=== PATIENT | male | born 1960 | race Caucasian/White ===

== ENCOUNTER 2018-07-12 17:37 | Emergency (ER) | payer MEDICAID, SELFPAY ==
[2018-07-12] VITALS (23 sets, daily range): BP systolic 63–110; BP diastolic 45–80; PULSE 0–93; RESP 11–25; TEMP 36.5; O2SAT 91–100
--- NOTE | 2018-07-12 17:44 | DI.RAD_ITS ---
SYMPTOM/DIAGNOSIS: CHEST PAIN PORTABLE AP CHEST: 1800 hours 07/12 There is a suboptimal inspiration. There is some apparent mild increase in pulmonary interstitial markings particularly in the lower lung schaeffer. The findings are nonspecific and could represent mild CHF or infectious process. Cardiac size is at the upper limits of normal. No gross pleural effusion on this frontal film. CONCLUSION: Mild bibasilar interstitial infiltrates which are nonspecific. Appropriate follow up studies requested.
[2018-07-12] MEDS: Aspirin 81 MG CHEW 324 MG CH (17:50)
--- NOTE | 2018-07-12 17:50 | W.ED.GENAD ---
Discharge Plan Discharge Details Chief Complaint: Chest Pain Clinical Impression: ST elevation (STEMI) myocardial infarction Reason For Visit: chest pain Primary Care Provider: Michael Trevizo ED Provider: Ortiz Pierce Disposition Patient Disposition: [facility] Condition: Critical Home Meds and New Rx's Prescriptions: No Action cyanocobalamin (vitamin B-12) 1,000 MCG tablet 1,000 mcg PO DAILY RF: 0 nitroglycerin 0.4 MG tablet, sublingual 0.4 mg Buccal ONCE RF: 0 nicotine 1 EACH patch 24 hour 14 mg Transdermal DAILY Qty: 14 RF: 0 bisoprolol fumarate 5 MG tablet 2.5 mg PO DAILY Qty: 30 RF: 11 nicotine 1 EACH patch 24 hour 21 mg Transdermal DAILY Qty: 30 RF: 0 nicotine 1 EACH patch 24 hour 7 mg Transdermal DAILY Qty: 14 RF: 0 clopidogrel [Plavix] 75 MG tablet 75 mg PO DAILY Qty: 90 RF: 4 aspirin 81 MG tablet,chewable 81 mg PO DAILY Qty: 90 RF: 4 rosuvastatin [Crestor] 40 MG tablet 40 mg PO DAILY Qty: 90 RF: 4 Medical Decision Making MDM Narrative Medical decision making narrative: 57 yo male with hx of CAD with multiple stents per pt unsure of how many, smoker, who doesn't take aspirin because he forgets frequently per pt, who comes in with chest pressure. He states it has been present for 2 days but 4 hours ago it acutely worsened and had nausea so came here, and STEmi confirmed on EKG. I gave him asa, started heparin and spoke with cardiology at [facility] and did not give lytics immediately because he has had pain with 2 days. I spoke with cardiology at [facility] and they accepted in transfer and [facility] unfortunately is not flying due to weather. CArdiology recommended if he has no other contraindications that he should have lytics since his acute worsening pain started 4 hours ago and no q waves so the STEMI likely started within 12 hours. After explaining risks and benefits and pt noting no contraindications on questioning he agreed to tnk and has capacity to make his own decisions. 300 of plavix also given to the patient. pt doing well, HD stable at this time awaiting transfer Pt's BP has been below 90/60 persistently despite 500cc fluid bolus. Will initiate levophed infusion. He is stating his pain is all but gone now and mental status is stable EMS is here now for transfer, BP now 100/70 on levophed infusion and remains with normal mental status Differential Diagnosis stemi, acs Imaging Data Radiologic Study: Attestation: I personally reviewed and interpreted this imaging study as follows: Imaging: X-Ray (chest xray) Radiologist's impression: vrad report viewed Lab Data Lab results reviewed: Yes I reviewed the patient's lab results. ECG Data Attestation: I personally reviewed and interpreted this ECG (s) as follows: Prior ECG tracings: available for review Interpretation: normal axis, sinus rhythm, STEMI, normal pr intervals HPI - General Adult General Mode of arrival: wheelchair. Date/Time Provider Initiated Documentation: 07/12/18 17:39. Limitations to Documentation: no limitations. Information obtained by: patient. History of Present Illness 57 year old M presents to the emergency department with the chief complaint of chest pain, described as severe, with intensity rated at 10. Quality is described as crushing, and is localized to the chest. Patient reports no radiation. Patient started experiencing this day(s) (2) and it has been other (worsening). No relieving factors improve symptom(s), No exacerbating factors reported . Patient notes nausea/vomiting. Patient did receive the following treatments prior to arrival, none Related Data Home Medications Medication Instructions Recorded Confirmed cyanocobalamin (vitamin B-12) 1,000 mcg PO DAILY 01/17/16 01/19/18 nitroglycerin 0.4 mg BUCCAL ONCE tab-cap 01/17/16 01/19/18 Allergies Allergy/AdvReac Type Severity Reaction Status Date / Time cephalexin monohydrate Allergy Severe Swelling/Ed Unverified 07/12/18 17:53 [From Keflex] aren Penicillins Allergy Severe Swelling/Ed Unverified 07/12/18 17:53 aren bee stings Allergy Severe Swelling/Ed Uncoded 07/12/18 17:53 aren General Stated Complaint: Chest Pain WILLEM: 2 Review of Systems Review of Systems All systems reviewed & are unremarkable except as noted in HPI and below Constitutional Denies chills, Denies fever(s) and Denies weakness Eyes Patient Denies loss of vision ENT Denies change in voice Cardiovascular Reports chest pain and Denies dyspnea Respiratory Denies dyspnea Gastrointestinal Denies abdominal pain and Reports nausea Genitourinary Denies dysuria Musculoskeletal Denies joint swelling Integumentary/Breasts Denies rash Neurologic Denies loss of vision and Denies weakness Psychiatric Denies depression Endocrine Denies cold intolerance and Denies heat intolerance Allergic/Immunologic Reports urticaria PFSH Social History Smoking/Tobacco Use Status: Current every day Exam Const Orientation: alert HENMT Head: normal to inspection Ears: external ears normal General nose exam: external nose normal Mouth: moist mucous membranes Eyes General: appearance normal, both eyes and all related structures Neck Neck: normal visual inspection Resp Effort & Inspection: normal respiratory effort and able to speak in complete sentences Cardio Rate: regular rate Skin General skin exam: no rashes or lesions noted Neuro General: alert and oriented x3 Extrem General: normal to inspection Psych Mental Status: mental status grossly normal Course Vital Signs Temperature 36.5 C 07/12/18 17:46 Pulse 85 07/12/18 17:46 Respiratory Rate 16 07/12/18 17:46 Blood Pressure 108/80 07/12/18 17:46 Pulse Oximetry 100 07/12/18 17:46 Temperature 36.5 C 07/12/18 17:46 Pulse 85 07/12/18 17:46 Respiratory Rate 16 07/12/18 17:46 Blood Pressure 108/80 07/12/18 17:46 Pulse Oximetry 100 07/12/18 17:46 Critical Care Time Critical Care Time: Yes Total Critical Care Time: 60 (minutes) Attestation: Time spent reviewing labs, ekg, monitoring hemodynamics and starting levophed infusion
[2018-07-12 17:54] LABS: Abs Immature Grans 0.03 k/cumm (0.0-0.09); Absolute Basophil Count 0.04 k/cumm (0.0-0.2); Absolute Lymphocyte Count 1.98 k/cumm (1.2-3.4); Absolute Monocyte Count 0.65 k/cumm (0.11-0.7); Absolute Neutrophil Count 6.95 k/cumm (1.2-6.7); Basophils % 0.4; HCT 49.6 % (40.0-50.0); HGB 16.9 g/dL (13.5-17.5); Immature Grans % 0.3; Lymphocytes % 20.3; Mean Corp. HGB Concentration 34.1 g/dL (32.0-36.0); Mean Corpuscular Hemoglobin 30.9 pg (27.0-33.0); Mean Corpuscular Volume 90.7 fL (80-95); Mean Platelet Volume 10.5 fL (8.0-11.0); Monocytes % 6.7; Neutrophils % 71.3; Platelet Count 204 x1000/uL (130-400); RBC 5.47 m/cumm (4.50-6.00); RBC Distribution Width 13.9 % (11.8-14.1); White Blood Cell Count 9.75 k/cumm (4.4-10.8)
--- NOTE | 2018-07-12 17:55 | ED.GENADUL_ITS ---
Discharge Plan Discharge Details Chief Complaint: Chest Pain Clinical Impression: ST elevation (STEMI) myocardial infarction Reason For Visit: chest pain Primary Care Provider: Michael Trevizo ED Provider: Ortiz Pierce Disposition Patient Disposition: [facility] Condition: Critical Home Meds and New Rx's Prescriptions: No Action cyanocobalamin (vitamin B-12) 1,000 MCG tablet 1,000 mcg PO DAILY RF: 0 nitroglycerin 0.4 MG tablet, sublingual 0.4 mg Buccal ONCE RF: 0 nicotine 1 EACH patch 24 hour 14 mg Transdermal DAILY Qty: 14 RF: 0 bisoprolol fumarate 5 MG tablet 2.5 mg PO DAILY Qty: 30 RF: 11 nicotine 1 EACH patch 24 hour 21 mg Transdermal DAILY Qty: 30 RF: 0 nicotine 1 EACH patch 24 hour 7 mg Transdermal DAILY Qty: 14 RF: 0 clopidogrel [Plavix] 75 MG tablet 75 mg PO DAILY Qty: 90 RF: 4 aspirin 81 MG tablet,chewable 81 mg PO DAILY Qty: 90 RF: 4 rosuvastatin [Crestor] 40 MG tablet 40 mg PO DAILY Qty: 90 RF: 4 Medical Decision Making MDM Narrative Medical decision making narrative: 57 yo male with hx of CAD with multiple stents per pt unsure of how many, smoker, who doesn't take aspirin because he forgets frequently per pt, who comes in with chest pressure. He states it has been present for 2 days but 4 hours ago it acutely worsened and had nausea so came here, and STEmi confirmed on EKG. I gave him asa, started heparin and spoke with cardiology at [facility] [place] and did not give lytics immediately because he has had pain with 2 days. I spoke with cardiology at [facility] and they accepted in transfer and [facility] unfortunately is not flying due to weather. CArdiology recommended if he has no other contraindications that he should have lytics since his acute worsening pain started 4 hours ago and no q waves so the STEMI likely started within 12 hours. After explaining risks and benefits and pt noting no contraindications on questioning he agreed to tnk and has capacity to make his own decisions. 300 of plavix also given to the patient. pt doing well, HD stable at this time awaiting transfer Pt's BP has been below 90/60 persistently despite 500cc fluid bolus. Will initiate levophed infusion. He is stating his pain is all but gone now and mental status is stable EMS is here now for transfer, BP now 100/70 on levophed infusion and remains with normal mental status Differential Diagnosis stemi, acs Imaging Data Radiologic Study: Attestation: I personally reviewed and interpreted this imaging study as follows: Imaging: X-Ray (chest xray) Radiologist's impression: vrad report viewed Lab Data Lab results reviewed: Yes I reviewed the patient's lab results. ECG Data Attestation: I personally reviewed and interpreted this ECG (s) as follows: Prior ECG tracings: available for review Interpretation: normal axis, sinus rhythm, STEMI, normal pr intervals HPI - General Adult General Mode of arrival: wheelchair . Date/Time Provider Initiated Documentation: 07/12/18 17:39 . Limitations to Documentation: no limitations . Information obtained by: patient . History of Present Illness 57 year old M presents to the emergency department with the chief complaint of chest pain, described as severe, with intensity rated at 10. Quality is described as crushing, and is localized to the chest. Patient reports no radiation. Patient started experiencing this day(s) (2) and it has been other (worsening). No relieving factors improve symptom(s), No exacerbating factors reported . Patient notes nausea/vomiting. Patient did receive the following treatments prior to arrival, none Related Data Home Medications Medication Instructions Recorded Confirmed cyanocobalamin (vitamin B-12) 1,000 mcg PO DAILY 01/17/16 01/19/18 nitroglycerin 0.4 mg BUCCAL ONCE tab-cap 01/17/16 01/19/18 Allergies Allergy/AdvReac Type Severity Reaction Status Date / Time cephalexin monohydrate Allergy Severe Swelling/Ed Unverified 07/12/18 17:53 [From Keflex] aren Penicillins Allergy Severe Swelling/Ed Unverified 07/12/18 17:53 aren bee stings Allergy Severe Swelling/Ed Uncoded 07/12/18 17:53 aren General Stated Complaint: Chest Pain WILLEM: 2 Review of Systems Review of Systems All systems reviewed & are unremarkable except as noted in HPI and below Constitutional Denies chills, Denies fever(s) and Denies weakness Eyes Patient Denies loss of vision ENT Denies change in voice Cardiovascular Reports chest pain and Denies dyspnea Respiratory Denies dyspnea Gastrointestinal Denies abdominal pain and Reports nausea Genitourinary Denies dysuria Musculoskeletal Denies joint swelling Integumentary/Breasts Denies rash Neurologic Denies loss of vision and Denies weakness Psychiatric Denies depression Endocrine Denies cold intolerance and Denies heat intolerance Allergic/Immunologic Reports urticaria PFSH Social History Smoking/Tobacco Use Status: Current every day Exam Const Orientation: alert HENMT Head: normal to inspection Ears: external ears normal General nose exam: external nose normal Mouth: moist mucous membranes Eyes General: appearance normal, both eyes and all related structures Neck Neck: normal visual inspection Resp Effort & Inspection: normal respiratory effort and able to speak in complete sentences Cardio Rate: regular rate Skin General skin exam: no rashes or lesions noted Neuro General: alert and oriented x3 Extrem General: normal to inspection Psych Mental Status: mental status grossly normal Course Vital Signs Temperature 36.5 C 07/12/18 17:46 Pulse 85 07/12/18 17:46 Respiratory Rate 16 07/12/18 17:46 Blood Pressure 108/80 07/12/18 17:46 Pulse Oximetry 100 07/12/18 17:46 Temperature 36.5 C 07/12/18 17:46 Pulse 85 07/12/18 17:46 Respiratory Rate 16 07/12/18 17:46 Blood Pressure 108/80 07/12/18 17:46 Pulse Oximetry 100 07/12/18 17:46 Critical Care Time Critical Care Time: Yes Total Critical Care Time: 60 (minutes) Attestation: Time spent reviewing labs, ekg, monitoring hemodynamics and starting levophed infusion
[2018-07-12] MEDS: Tenecteplase 50 MG KIT IVP (18:02)
[2018-07-12] MEDS: Clopidogrel 300 MG TAB PO (18:04)
[2018-07-12] MEDS: fentaNYL 100 MCG/2 ML VIAL IVP (18:12)
[2018-07-12 18:21] LABS: Prothrombin Time 10.1 sec (9.3-10.8)
[2018-07-12] MEDS: Normal Saline 1,000 ML 1000 ML IV (18:26)
[2018-07-12 18:29] LABS: ALT 43 U/L (12-78); AST 30 U/L (15-37); Albumin 3.9 g/dL (3.4-5.0); Alkaline Phosphatase 139 U/L (46-116); Anion Gap 8.6 mmol/L (3-11); BUN 15 mg/dL (7-18); Bilirubin, Total 0.5 mg/dL (0.2-1.0); CO2 26.4 mmol/L (21.0-32.0); CREATININE 0.98 mg/dL (0.70-1.30); Calcium 8.6 mg/dL (8.5-10.1); Chloride 100 mmol/L (98-107); Glucose 109 mg/dL (70-100); NT-proBNP 12 pg/mL; Potassium 3.7 mmol/L (3.5-5.1); Sodium 135 mmol/L (136-145); Troponin I 0.04 ng/mL (0.00-0.06)
--- NOTE | 2018-07-12 18:40 | DI.VRAD_ITS ---
EXAM: XR Chest, 1 View EXAM DATE/TIME: 07/12/2018 5:45 PM CLINICAL HISTORY: 57 years old, male; Signs and symptoms; Other: Chest pain TECHNIQUE: XR of the chest, 1 view. COMPARISON: CR - CHEST 2 VIEWS PA,LAT 04/21/2018 11:52 AM FINDINGS: Lungs: Azygous lobe in the right lung which is a normal variant. Mild peribronchial thickening and/or mild perihilar linear markings consistent with bronchitis and/or viral pneumonitis and/or reactive airway disease and/or atypical pulmonary interstitial edema. Pleural space: Unremarkable. No pleural effusion. No pneumothorax. Heart/Mediastinum: Unremarkable. No cardiomegaly. Bones/joints: Unremarkable for patient's age. Other findings: There are postoperative changes over the gastroesophageal junction. IMPRESSION: Mild peribronchial thickening and/or mild perihilar linear markings consistent with bronchitis and/or viral pneumonitis and/or reactive airway disease and/or atypical pulmonary interstitial edema. Dictated and Authenticated by: Ortiz Leyva MD. Ordering:ALEXANDR RAMOS MD
== END 2018-07-12 18:58 | disposition short-term general hospital (02) ==
PROVIDERS: Emergency Provider Emergency Medicine; PCP General Practice
DX: I21.3 ST elevation (STEMI) myocardial infarction of unspecified site (principal); I25.10 Atherosclerotic heart disease of native coronary artery without angina pectoris; Z95.2 Presence of prosthetic heart valve
CPT/HCPCS: 36415; 80053; 93005; 96361; 96365; 96368; 96374; 96375; 96376; 99285; 99291; 71045; 83735; 83880; 84484; 85025; 85610; 85730; 93010; J3010; J3101

== ENCOUNTER 2019-04-27 12:39 | Emergency (ER) | payer MEDICAID, SELFPAY ==
[2019-04-27 12:41] VITALS: BP 145/93; PULSE 81; RESP 20; TEMP 36.6; O2SAT 96
--- NOTE | 2019-04-27 13:12 | DI.RAD_ITS ---
SYMPTOMS/DIAGNOSIS: POSTERIOR RIB PAIN, BACK PAIN S/P FALL RIGHT HIP AND PELVIS: There is no evidence of a fracture or dislocation. PA AND LATERAL CHEST: The heart is normal in size. The lungs are clear. The mediastinal structures and pleura appear intact. SUMMARY: Normal chest. No evidence of acute cardiopulmonary disease. RIGHT RIBS: No rib fractures identified. T-SPINE: The vertebral bodies appear intact. Mild disc space narrowing is noted at multiple levels and there are multiple degenerative bony changes. As visualized, the posterior elements appear intact. The paravertebral soft tissues are well maintained. SUMMARY: No evidence of a fracture or subluxation.
[2019-04-27] MEDS: Lidocaine 5% Patch 1 PATCH TP (13:17)
[2019-04-27] MEDS: Acetaminophen 325 MG TAB 650 MG PO (13:17)
--- NOTE | 2019-04-27 14:49 | ED.GENADUL_ITS ---
Discharge Plan Disposition Patient Disposition: HOME Condition: Stable Discharge Details Chief Complaint: Nk/Back Pain Clinical Impression: Strain of thoracic back region Primary Care Provider: Michael Trevizo ED Provider: Brandyn Moura Home Meds and New Rx's Prescriptions: New lidocaine 5 % adhesive patch,medicated 1 patch TP DAILY PRN (Reason: pain) Qty: 15 RF: 0 hydrocodone-acetaminophen 5-325 mg tablet 1 tab PO Q6H PRN (Reason: pain) Qty: 6 RF: 0 Continued cyanocobalamin (vitamin B-12) 1,000 MCG tablet 1,000 mcg PO DAILY RF: 0 nitroglycerin 0.4 MG tablet, sublingual 0.4 mg Buccal ONCE RF: 0 nicotine 1 EACH patch 24 hour 14 mg Transdermal DAILY Qty: 14 RF: 0 bisoprolol fumarate 5 MG tablet 2.5 mg PO DAILY Qty: 30 RF: 11 nicotine 1 EACH patch 24 hour 7 mg Transdermal DAILY Qty: 14 RF: 0 clopidogrel [Plavix] 75 MG tablet 75 mg PO DAILY Qty: 90 RF: 4 aspirin 81 MG tablet,chewable 81 mg PO DAILY Qty: 90 RF: 4 rosuvastatin [Crestor] 40 MG tablet 40 mg PO DAILY Qty: 90 RF: 4 nicotine 21 mg/24 hr patch 24 hour 21 mg Transdermal DAILY Qty: 30 RF: 0 omeprazole 20 mg Capsule,Delayed Release(Dr/Ec) 20 mg PO DAILY RF: 0 Discharge Instructions Instructions: Muscle Strain (ED), Back Pain (ED) Additional Instructions: Take medication as prescribed and slowly advance activity as tolerated dis comfort keep your appointment as previously scheduled primary care and feel free to return to the emergency department for any new or significant worsening of symptoms. Referrals: Michael Trevizo MD [Primary Care Provider] - (Keep your appointment with primary care as previously scheduled) Discharge Data Discharge Date/Time-TO BE ENTERED AT DEPARTURE: 04/27/19 14:59 Medical Decision Making Right-sided back pain after near fall catching himself and a jolting type stop 3 days ago. Patient has tenderness to the thoracic spine and right posterior ribs along with paraspinal tenderness. Patient also has some right hip tenderness but full range of motion. Plan to do radiological imaging to rule out acute fracture. Patient does state history of previous injury with back surgery and maury placement due to chronic back pain. Pending results patient given Tylenol and lidocaine patch. Review of imaging and radiologist interpretation shows no acute findings noted. Patient reassessed and states improvement after lidocaine patch and Tylenol. Patient is very reasonable and reliable and states that previously due to significant amount of back pain he is needed hydrocodone and states he only takes on limited basis. Review of drug database shows no worrisome findings so patient given limited prescription of [place] and lidocaine patches. Patient states he already has a follow-up appointment scheduled with primary care on Thursday which I feel is reasonable. Return precautions discussed. After discussion of diagnosis and plan of care patient has no further needs, questions, or concerns and states clear understanding to return to the emergency department for any worsening symptoms. HPI General Mode of arrival: ambulatory . Date/Time Provider Initiated Documentation: 04/27/19 12:39 . Limitations to Documentation: no limitations . Information obtained by: patient . History of Present Illness 58 year old M presents to the emergency department with the chief complaint of back pain, described as moderate, with intensity rated at 10. Quality is described as aching and sharp, and is localized to the back and right. Patient started experiencing this day(s) (3) and it has been constant. No relieving factors improve symptom(s), Movement worsens symptoms . Patient notes no other symptoms.. Patient did receive the following treatments prior to arrival, NSAID Related Data Home Medications Medication Instructions Recorded Confirmed cyanocobalamin (vitamin B-12) 1,000 mcg PO DAILY 01/17/16 04/27/19 nitroglycerin 0.4 mg BUCCAL ONCE tab-cap 01/17/16 04/27/19 bisoprolol fumarate 2.5 mg PO DAILY #30 tab-cap 02/03/18 04/27/19 nicotine 7 mg TRANSDERMAL DAILY #14 patch 02/03/18 04/27/19 nicotine 14 mg TRANSDERMAL DAILY #14 patch 02/03/18 04/27/19 aspirin 81 mg PO DAILY #90 tab-cap 02/15/18 04/27/19 clopidogrel [Plavix] 75 mg PO DAILY #90 tab-cap 02/15/18 04/27/19 rosuvastatin [Crestor] 40 mg PO DAILY #90 tab-cap 02/15/18 04/27/19 nicotine 21 mg TRANSDERMAL DAILY #30 patch 11/03/18 04/27/19 hydrocodone-acetaminophen 1 tab PO Q6H PRN #6 tab 04/27/19 lidocaine 1 patch TP DAILY PRN #15 each 04/27/19 omeprazole 20 mg PO DAILY 04/27/19 04/27/19 Previous Rx's Medication Instructions Recorded bisoprolol fumarate 2.5 mg PO DAILY #30 tab-cap 02/03/18 nicotine 7 mg TRANSDERMAL DAILY #14 patch 02/03/18 nicotine 14 mg TRANSDERMAL DAILY #14 patch 02/03/18 aspirin 81 mg PO DAILY #90 tab-cap 02/15/18 clopidogrel [Plavix] 75 mg PO DAILY #90 tab-cap 02/15/18 rosuvastatin [Crestor] 40 mg PO DAILY #90 tab-cap 02/15/18 nicotine 21 mg TRANSDERMAL DAILY #30 patch 11/03/18 hydrocodone-acetaminophen 1 tab PO Q6H PRN #6 tab 04/27/19 lidocaine 1 patch TP DAILY PRN #15 each 04/27/19 Allergies Allergy/AdvReac Type Severity Reaction Status Date / Time cephalexin monohydrate Allergy Severe Swelling/Ed Unverified 04/27/19 12:44 [From Keflex] aren Penicillins Allergy Severe Swelling/Ed Unverified 04/27/19 12:44 aren bee stings Allergy Severe Swelling/Ed Uncoded 04/27/19 12:44 aren General Stated Complaint: Nk/Back Pain WILLEM: 3 Review of Systems Constitutional Denies chills and Denies fever(s) Cardiovascular Denies chest pain and Denies dyspnea on exertion Respiratory Denies cough and Denies dyspnea on exertion Gastrointestinal Denies abdominal pain, Denies change in bowel habits, Denies diarrhea, Denies nausea and Denies vomiting Genitourinary Denies difficulty urinating and Denies urinary incontinence Musculoskeletal Reports as per HPI and Reports back pain Neurologic Denies sensory deficit PFS Social History Smoking/Tobacco Use Status: Current every day Alcohol Intake: current Alcohol Intake frequency: a few times a week Drug use: Occasionally Substance use type: marijuana Do you feel safe at home: Yes Do you feel safe in your relationship?: Yes Exam Const General: cooperative and no acute distress Orientation: alert, awake and oriented x3 Neck Neck: normal visual inspection, full ROM and no meningeal signs Chest Chest: normal inspection of the chest, no crepitus and localized rib tenderness with anteroposterior compression (Right posterior ribs- T5-7) Resp Effort & Inspection: normal respiratory effort Auscultation: clear to auscultation bilaterally Cardio Rate: regular rate Rhythm: regular rhythm Heart Sounds: S1 normal and S2 normal GI Palpation: no hepatosplenomegaly, no aortic enlargement, no masses and no pulsatile masses Back/Spine/Pelvis Cervical Spine: normal cervical lordosis, cervical ROM normal, No cervical spinal tenderness and No step off deformity Thoracic/Lumbar Spine: pain with thoraco-lumbar ROM, paraspinal tenderness (right ), thoraco-lumbar ROM limited, thoracic spinal tenderness (t5-7) and No lumbar spinal tenderness Neuro General: alert, awake and oriented x3 Gait: antalgic Extrem Right lower extremity: hip/thigh Details: normal to inspection, tenderness Location: of the hip Location: laterally and anterolaterally and normal ROM, knee Details: normal to inspection and lower leg Details: normal to inspection Course Vital Signs Temperature 36.6 C 04/27/19 12:41 Pulse 81 04/27/19 12:41 Respiratory Rate 20 04/27/19 12:41 Blood Pressure 145/93 H 04/27/19 12:41 Pulse Oximetry 96 04/27/19 12:41 Temperature 36.6 C 04/27/19 12:41 Temperature Source Temporal Artery Scan 04/27/19 12:41 Pulse 81 04/27/19 12:41 Respiratory Rate 20 04/27/19 12:41 Respiratory Effort Non-Labored 04/27/19 12:41 Blood Pressure 145/93 H 04/27/19 12:41 Pulse Oximetry 96 04/27/19 12:41 Oxygen Delivery Method Room Air 04/27/19 12:41 Oxygen Flow Rate 0 04/27/19 12:41 Pain Level 10 04/27/19 12:41
[2019-04-27 17:44] VITALS: BP 145/93; PULSE 81; RESP 20; TEMP 36.6; O2SAT 96
== END 2019-04-27 14:59 | disposition home or self-care (01) ==
PROVIDERS: Emergency Provider Nurse Practitioner Family; PCP General Practice
DX: S29.012A Strain of muscle and tendon of back wall of thorax, initial encounter (principal); W01.0XXA Fall on same level from slipping, tripping and stumbling without subsequent striking against object, initial encounter
CPT/HCPCS: 99283; 71046; 71100; 72072; 73502

== ENCOUNTER 2019-05-23 08:29 | Outpatient (CLI) | payer MEDICAID, SELFPAY | END 2019-05-23 08:49 | PROVIDERS: PCP General Practice; Visit Provider Internal Medicine Interventional Cardiology | DX: I25.10 Atherosclerotic heart disease of native coronary artery without angina pectoris (principal); I25.2 Old myocardial infarction; I10 Essential (primary) hypertension; F17.200 Nicotine dependence, unspecified, uncomplicated; E78.5 Hyperlipidemia, unspecified | CPT/HCPCS: 93005; 93010 ==

== ENCOUNTER 2019-06-05 17:04 | Emergency (ER) | payer MEDICAID, SELFPAY ==
[2019-06-05] VITALS (13 sets, daily range): BP systolic 117–127; BP diastolic 69–87; PULSE 87–94; RESP 9–27; TEMP 36.6; O2SAT 91–97
--- NOTE | 2019-06-05 17:02 | DI.RAD_ITS ---
SYMPTOM/DIAGNOSIS: CHEST PAIN CHEST: Portable AP view. Comparison 04/27/19 There is poor inspiration. The cardiac silhouette is within normal limits. There may be increased lung markings in the bases, left greater than right. This may represent atelectasis or pneumonia. Note is again made of an azygous lobe. No effusions or pneumothoraces are identified. IMPRESSION: Increased lung markings, left greater than right in the bases. This may represent atelectasis or pneumonia. Please correlate clinically.
--- NOTE | 2019-06-05 17:12 | W.ED.GENAD ---
Discharge Plan Disposition Patient Disposition: [facility] Condition: Critical Discharge Details Chief Complaint: Chest Pain Clinical Impression: ST elevation (STEMI) myocardial infarction Primary Care Provider: Michael Trevizo ED Provider: Ortiz Pierce Home Meds and New Rx's Prescriptions: No Action cyanocobalamin (vitamin B-12) 1,000 MCG tablet 1,000 mcg PO DAILY RF: 0 nitroglycerin 0.4 MG tablet, sublingual 0.4 mg Buccal ONCE RF: 0 nicotine 1 EACH patch 24 hour 14 mg Transdermal DAILY Qty: 14 RF: 0 bisoprolol fumarate 5 MG tablet 2.5 mg PO DAILY Qty: 30 RF: 11 nicotine 1 EACH patch 24 hour 7 mg Transdermal DAILY Qty: 14 RF: 0 clopidogrel [Plavix] 75 MG tablet 75 mg PO DAILY Qty: 90 RF: 4 aspirin 81 MG tablet,chewable 81 mg PO DAILY Qty: 90 RF: 4 rosuvastatin [Crestor] 40 MG tablet 40 mg PO DAILY Qty: 90 RF: 4 nicotine 21 mg/24 hr patch 24 hour 21 mg Transdermal DAILY Qty: 30 RF: 0 omeprazole 20 mg Capsule,Delayed Release(Dr/Ec) 20 mg PO DAILY RF: 0 Medical Decision Making 58 yo male with hx of extensive CAD with multiple stents in the past comes in with acute onset chest pain similar to prior AR. His ekg with ems showed inferior stemi and he was given 324mg asa and on arrival is still having pain and ekg confirms inferior stemi. He denies recent fevers or cough. He denies any severe headaches or recent bleeding. I ordered plavix and heparin and he denies any contraindications to lytics and consents to receiving TNK so this was ordered as well. I spoke with Dr. Gutierrez [place] [facility] [place] with [place] and wants pt [place]ffer[place] [facility] [place], accepting provier is Dr. duvall. [facility] is not flying due to weather so patient will go by ground. He denies any tearing back pain and has normal vascular exam so doubt dissection and no evidence of dvt so doubt PE Differential Diagnosis acs, stemi Imaging Data Radiologic Study: Attestation: I personally reviewed and interpreted this imaging study as follows: Imaging: X-Ray My impression: no acute findigs Lab Data Lab results reviewed: Yes I reviewed the patient's lab results. ECG Data Attestation: I personally reviewed and interpreted this ECG (s) as follows: Prior ECG tracings: not available for review Interpretation: sinus rhythm, normal qtc, inferior STEMI HPI General Mode of arrival: EMS. Date/Time Provider Initiated Documentation: 06/05/19 17:11. Limitations to Documentation: no limitations. Information obtained by: patient. History of Present Illness 58 year old M presents to the emergency department with the chief complaint of chest pain, described as severe, and is localized to the chest. Patient reports no radiation. Patient started experiencing this hour(s) (2) and it has been constant. No relieving factors improve symptom(s), No exacerbating factors reported . Patient did receive the following treatments prior to arrival, none Related Data Home Medications Medication Instructions Recorded Confirmed cyanocobalamin (vitamin B-12) 1,000 mcg PO DAILY 01/17/16 06/05/19 nitroglycerin 0.4 mg BUCCAL ONCE tab-cap 01/17/16 06/05/19 bisoprolol fumarate 2.5 mg PO DAILY #30 tab-cap 02/03/18 06/05/19 nicotine 7 mg TRANSDERMAL DAILY #14 patch 02/03/18 05/23/19 nicotine 14 mg TRANSDERMAL DAILY #14 patch 02/03/18 05/23/19 aspirin 81 mg PO DAILY #90 tab-cap 02/15/18 06/05/19 clopidogrel [Plavix] 75 mg PO DAILY #90 tab-cap 02/15/18 06/05/19 rosuvastatin [Crestor] 40 mg PO DAILY #90 tab-cap 02/15/18 06/05/19 nicotine 21 mg TRANSDERMAL DAILY #30 patch 11/03/18 06/05/19 omeprazole 20 mg PO DAILY 04/27/19 06/05/19 Previous Rx's Medication Instructions Recorded bisoprolol fumarate 2.5 mg PO DAILY #30 tab-cap 02/03/18 nicotine 7 mg TRANSDERMAL DAILY #14 patch 02/03/18 nicotine 14 mg TRANSDERMAL DAILY #14 patch 02/03/18 aspirin 81 mg PO DAILY #90 tab-cap 02/15/18 clopidogrel [Plavix] 75 mg PO DAILY #90 tab-cap 02/15/18 rosuvastatin [Crestor] 40 mg PO DAILY #90 tab-cap 02/15/18 nicotine 21 mg TRANSDERMAL DAILY #30 patch 11/03/18 Allergies Allergy/AdvReac Type Severity Reaction Status Date / Time cephalexin monohydrate Allergy Severe Swelling/Ed Unverified 06/05/19 17:21 [From Keflex] aren Penicillins Allergy Severe Swelling/Ed Unverified 06/05/19 17:21 aren bee stings Allergy Severe Swelling/Ed Uncoded 06/05/19 17:21 aren General WILLEM: 3 Review of Systems Review of Systems All systems reviewed & are unremarkable except as noted in HPI and below Constitutional Denies chills, Denies fever(s) and Denies weakness Cardiovascular Denies chest pain and Denies dyspnea Respiratory Denies dyspnea Gastrointestinal Denies abdominal pain, Denies nausea and Denies vomiting Integumentary/Breasts Denies rash Neurologic Denies weakness [facility] Social History Smoking/Tobacco Use Status: Current every day Tobacco Type: cigarettes Alcohol Intake: current Alcohol Intake frequency: a few times a week Drug use: Occasionally Substance use type: marijuana Do you feel safe at home: Yes Do you feel safe in your relationship?: Yes Exam Const General: other (in pain) Orientation: alert HENMT Head: normal to inspection Ears: external ears normal General nose exam: external nose normal Mouth: moist mucous membranes Eyes General: appearance normal, both eyes and all related structures Neck Neck: normal visual inspection Resp Effort & Inspection: normal respiratory effort and able to speak in complete sentences Cardio Rate: regular rate Skin General skin exam: no rashes or lesions noted Neuro General: alert and oriented x3 Extrem General: normal to inspection Psych Mental Status: mental status grossly normal Critical Care Time Critical Care Time: Yes Total Critical Care Time: 60 (minutes) Attestation: time spent reviewing labs and frequent reassessments and giving lytics to a patient with a STEMI and potential to deteriorate at any time
[2019-06-05] MEDS: Tenecteplase 50 MG KIT IVP (17:15)
[2019-06-05 17:23] LABS: Abs Immature Grans 0.04 k/cumm (0.0-0.09); Absolute Lymphocyte Count 2.39 k/cumm (1.2-3.4); Basophils % 0.3; HCT 47.1 % (40.0-50.0); HGB 16.2 g/dL (13.5-17.5); Immature Grans % 0.3; Lymphocytes % 16.7; Mean Corp. HGB Concentration 34.4 g/dL (32.0-36.0); Mean Corpuscular Hemoglobin 31.8 pg (27.0-33.0); Mean Corpuscular Volume 92.5 fL (80-95); Monocytes % 5.6; Neutrophils % 76.1; Platelet Count 187 x1000/uL (130-400); RBC 5.09 m/cumm (4.50-6.00); White Blood Cell Count 14.31 k/cumm (4.4-10.8)
[2019-06-05] MEDS: Clopidogrel 300 MG TAB PO (17:25)
[2019-06-05 17:26] LABS: Absolute Basophil Count 0.04 k/cumm (0.0-0.2); Absolute Eosinophil Count 0.14 k/cumm (0.0-0.7); Absolute Neutrophil Count 10.89 k/cumm (1.2-6.7)
[2019-06-05] MEDS: fentaNYL 100 MCG/2 ML VIAL (17:30)
[2019-06-05 17:39] LABS: PTT Activated 22.9 sec (21.0-31.4); Prothrombin Time 10.3 sec (9.3-11.0)
--- NOTE | 2019-06-05 17:45 | DI.VRAD_ITS ---
EXAM: XR Chest, 1 View EXAM DATE/TIME: 06/05/2019 5:05 PM CLINICAL HISTORY: 58 years old, male; Chest pain; Type not specified TECHNIQUE: Imaging protocol: XR of the chest, 1 view. COMPARISON: CR XR ribs RT w PA lat chest 27/04/2019 13:28 FINDINGS: Lungs: Azygos lobe. New patchy left lower lobe infiltrate. Increased perihilar markings with peribronchial thickening slightly progressed since prior study. Pleural space: No evidence for effusion or pneumothorax. Heart/Mediastinum: Unremarkable. No cardiomegaly. Bones/joints: Unremarkable. Other findings: EKG were overlies the chest. IMPRESSION: 1. Left lower lobe pneumonia. 2. Peribronchial thickening and increased perihilar markings consistent with bronchitis or viral pneumonia. Dictated and Authenticated by: Joyce Issa MD. Ordering:ALEXANDR Alcantar MD
[2019-06-05 17:50] LABS: ALT 29 U/L (12-78); AST 16 U/L (15-37); Albumin 3.8 g/dL (3.4-5.0); Alkaline Phosphatase 119 U/L (46-116); Anion Gap 13.1 mmol/L (3-11); BUN 23 mg/dL (7-18); Bilirubin, Total 0.3 mg/dL (0.2-1.0); CO2 21.9 mmol/L (21.0-32.0); CREATININE 1.56 mg/dL (0.70-1.30); Calcium 8.9 mg/dL (8.5-10.1); Chloride 108 mmol/L (98-107); Estimated GFR 45.78 (mL/min/1.73m2); Glucose 112 mg/dL (70-100); Magnesium 1.9 mg/dL (1.8-2.4); NT-proBNP 13 pg/mL; Potassium 3.6 mmol/L (3.5-5.1); Sodium 143 mmol/L (136-145); Total Protein 7.9 g/dL (6.4-8.2)
[2019-06-05 17:56] LABS: Troponin I < 0.05 ng/mL (0.00-0.06)
== END 2019-06-05 17:45 | disposition short-term general hospital (02) ==
LOC: ER 17:39
PROVIDERS: Emergency Provider Emergency Medicine; PCP General Practice
DX: I21.19 ST elevation (STEMI) myocardial infarction involving other coronary artery of inferior wall (principal); I25.10 Atherosclerotic heart disease of native coronary artery without angina pectoris; Z95.5 Presence of coronary angioplasty implant and graft
CPT/HCPCS: 36415; 80053; 93005; 96365; 96368; 96375; 99291; 71045; 83735; 83880; 84484; 85025; 85610; 85730; 93010; J3010; J3101

== ENCOUNTER 2019-07-29 11:59 | Emergency (ER) | payer MEDICAID, SELFPAY ==
[2019-07-29 12:09] VITALS: BP 151/115; PULSE 100; RESP 18; TEMP 35.5; O2SAT 97
--- NOTE | 2019-07-29 12:41 | ED.GENADUL_ITS ---
Discharge Plan Disposition Patient Disposition: HOME Condition: Stable Discharge Details Chief Complaint: Nk/Back Pain Clinical Impression: Chronic back pain Primary Care Provider: Michael Trevizo ED Provider: Mila Jacques Home Meds and New Rx's Prescriptions: New hydrocodone-acetaminophen [[place]] 5-325 mg tablet 1 tab PO Q6H PRN (Reason: pain) Qty: 10 RF: 0 Continued cyanocobalamin (vitamin B-12) 1,000 MCG tablet 1,000 mcg PO DAILY RF: 0 nitroglycerin 0.4 MG tablet, sublingual 0.4 mg Buccal ONCE RF: 0 nicotine 1 EACH patch 24 hour 14 mg Transdermal DAILY Qty: 14 RF: 0 bisoprolol fumarate 5 MG tablet 2.5 mg PO DAILY Qty: 30 RF: 11 nicotine 1 EACH patch 24 hour 7 mg Transdermal DAILY Qty: 14 RF: 0 clopidogrel [Plavix] 75 MG tablet 75 mg PO DAILY Qty: 90 RF: 4 aspirin 81 MG tablet,chewable 81 mg PO DAILY Qty: 90 RF: 4 rosuvastatin [Crestor] 40 MG tablet 40 mg PO DAILY Qty: 90 RF: 4 omeprazole 20 mg Capsule,Delayed Release(Dr/Ec) 20 mg PO DAILY RF: 0 Discharge Instructions Instructions: Chronic Back Pain (ED) Additional Instructions: Encourage hydration. Encourage gentle stretching. Please continue to use your walker to help with ambulation and prevent falls. Please continue with your bracing. Please follow-up with primary care next week for reevaluation and to discuss possible spine referral. Please use Tylenol and ibuprofen as needed for discomfort. If this is unsuccessful at alleviating her discomfort, please use the [place] as prescribed. Please take this medication only as prescribed, do not drive will take this medication. If you develop fever/chills, increased pain, change in urinary or bowel habits, sensation changes or other new/worsening symptoms please seek care urgently once again. Referrals: Michael Trevizo MD [Primary Care Provider] - Discharge Data Discharge Date/Time-TO BE ENTERED AT DEPARTURE: 07/29/19 15:55 Medical Decision Making Patient is a 58-year-old male presents today with chief complaint of falling at home. Patient reports that he has had chronic lower back pain. Is status post fusion in 1998 at which time he believes L1-S1 were fused. Patient has not had follow-up with neurology or spine since then. States since then he has had intermittent weakness in the left lower extremity and describes it as the knee giving out. States is been happening more frequently recently. Is also concerned that he is been having some swelling in the left foot. Describes chronic bilateral lower extremity neuropathy that is been present for the past 10 years. No known trauma. No recent fever/chills. Was seen by his PCP and was given prescription for Vicodin to help with his back pain. Patient reports that in June, he was hospitalized [place] [facility] [place] suffering a [place] infarction. He has had multiple MIs historically with stent placement. No stents were placed recently. Patient is anticoagulated. States that after discharge, he was admitted at a local rehabilitation center and was there for 19 days. [place] well at the time of discharge but that his weakness and chronic back pain has progressively worsening once again. Back pain radiates across the entirety of the lumbar spine to the SI joints. Patient is not undergone formal physical therapy, but evaluated by neurology, has not had imaging of the back, knee or foot. He reports he is unable to go through MRI secondary to his stenting. CT reviewed by radiologist: FINDINGS: The vertebral bodies are intact. The patient is status post L4 through S1 fusion. A maury and pedicle screw device is demonstrated in position. There is evidence of a L5-S1 spondylolisthesis. There may be mild narrowing of the L5-S1 disc interspace. There is no evidence of a gross disc protrusion. The neural canal appears widely patent. Facet joint DJD is most pronounced at L4-5 and L5- S1. The pedicle, spinous and transverse processes are intact. The sacrum and sacroiliac joints appear unremarkable. Post surgical changes. There is evidence of L5-S1 spondylolisthesis. There is no CT evidence to suggest a disc protrusion. Knee XR: FINDINGS: The bony structures are normally mineralized. Joint space is intact. There is no evidence of a joint effusion. There is no evidence of a fracture or dislocation. Discussed this finding with the patient. Spoke with care management at length. This point, I do not see a way to immediately hospitalized patient with local care facility as he does not have any emergent change in status. Patient also does not want to be acutely placed, he would prefer to seek outpatient management of his chronic falls. Discussed with the patient however that his increased falls have me concerned. I do feel that pursuing further treatment options would be beneficial to him. In particular, I advised a referral to a technology sales specialist with his chronic back pain leading to the left leg weakness intermittently. Will discuss this plan with his primary care. Patient has a left knee brace as well as crutches to help prevent falls. I spoke with the patient's primary care physician as well and possibly with the patient. We discussed that placement at this time is being declined by the patient and likely would be difficult to manage. He will follow-up closely with the patient. Patient is requesting further narcotic prescriptions to help with his acute pain. I am agreeable to filling a short course advised that any further will need to be filled by his primary care provider if indicated. We discussed new/worsening symptoms when to seek care urgently once again. All his questions and concerns were addressed and he is in agreement this plan. [facility] General Mode of arrival: ambulatory . Date/Time Provider Initiated Documentation: 07/29/19 12:21 . Limitations to Documentation: no limitations . Information obtained by: patient, RN notes reviewed and old records reviewed (called by PCP) . History of Present Illness 58 year old M presents to the emergency department with the chief complaint of lower back pain with weakness in LLE, described as severe and similar to prior episodes, with intensity rated at 9. Quality is described as stabbing, and is localized to the back. Patient reports no radiation. Patient started experiencing this year(s) (11) and it has been constant. Immobilization improves symptom(s), Movement worsens symptoms . Patient notes weakness (left knee gives out); denies chest pain, cough, diaphoresis, fever/chills, headaches, loss of appetite, nausea/vomiting, rash and shortness of breath. Patient did receive the following treatments prior to arrival, other (opioid) Related Data Home Medications Medication Instructions Recorded Confirmed cyanocobalamin (vitamin B-12) 1,000 mcg PO DAILY 01/17/16 06/05/19 nitroglycerin 0.4 mg BUCCAL ONCE tab-cap 01/17/16 07/29/19 bisoprolol fumarate 2.5 mg PO DAILY #30 tab-cap 02/03/18 07/29/19 nicotine 7 mg TRANSDERMAL DAILY #14 patch 02/03/18 05/23/19 nicotine 14 mg TRANSDERMAL DAILY #14 patch 02/03/18 07/29/19 aspirin 81 mg PO DAILY #90 tab-cap 02/15/18 07/29/19 clopidogrel [Plavix] 75 mg PO DAILY #90 tab-cap 02/15/18 07/29/19 rosuvastatin [Crestor] 40 mg PO DAILY #90 tab-cap 02/15/18 07/29/19 omeprazole 20 mg PO DAILY 04/27/19 07/29/19 hydrocodone-acetaminophen [[place]] 1 tab PO Q6H PRN #10 tab 07/29/19 Previous Rx's Medication Instructions Recorded bisoprolol fumarate 2.5 mg PO DAILY #30 tab-cap 02/03/18 nicotine 7 mg TRANSDERMAL DAILY #14 patch 02/03/18 nicotine 14 mg TRANSDERMAL DAILY #14 patch 02/03/18 aspirin 81 mg PO DAILY #90 tab-cap 02/15/18 clopidogrel [Plavix] 75 mg PO DAILY #90 tab-cap 02/15/18 rosuvastatin [Crestor] 40 mg PO DAILY #90 tab-cap 02/15/18 hydrocodone-acetaminophen [[place]] 1 tab PO Q6H PRN #10 tab 07/29/19 Allergies Allergy/AdvReac Type Severity Reaction Status Date / Time cephalexin monohydrate Allergy Severe Swelling/Ed Unverified 07/29/19 12:14 [From Keflex] aren Penicillins Allergy Severe Swelling/Ed Unverified 07/29/19 12:14 aren bee stings Allergy Severe Swelling/Ed Uncoded 07/29/19 12:14 aren General Stated Complaint: Nk/Back Pain WILLEM: 3 Review of Systems Constitutional Constitutional: Reports as per HPI, Denies chills, Denies fever(s), Reports frequent falls, Denies headache(s), Denies lethargy and Denies poor appetite Eyes Eyes: Denies change in vision ENT Ears, Nose, Mouth, and Throat: Denies dizziness and Denies headache(s) Cardiovascular Cardiovascular: Reports as per HPI, Denies dyspnea and Denies dyspnea on exertion Respiratory Respiratory: Reports as per HPI, Denies chest congestion, Denies cough, Denies pain on inspiration, Denies pain with cough, Denies dyspnea, Denies dyspnea on exertion and Denies wheezing Gastrointestinal Gastrointestinal: Reports as per HPI, Denies abdominal pain, Denies diarrhea, Denies nausea and Denies vomiting Genitourinary Genitourinary: Denies system reviewed and no additional complaints, except as docu (denies change in urinary habits) Musculoskeletal Musculoskeletal: Reports as per HPI, Reports abnormal gait (uses cane) and Denies back pain Integumentary/Breasts Skin/Breast: Reports as per HPI and Denies rash Neurologic Neurologic: Reports as per HPI, Reports abnormal gait (uses cane), Denies dizziness, Reports frequent falls, Denies headache(s), Reports lack of coordination, Denies focal weakness and Reports sensory deficit (diminished sensation BLE) Allergic/Immunologic Allergic/Immunologic: Denies wheezing [facility] Social History Smoking/Tobacco Use Status: Current every day Tobacco Type: cigarettes Alcohol Intake: current Alcohol Intake frequency: a few times a week Drug use: Occasionally Substance use type: marijuana Do you feel safe at home: Yes Do you feel safe in your relationship?: Yes Exam Const General: cooperative, healthy appearing, comfortable, no acute distress and well developed Nutritional Appearance: average body habitus and well nourished Orientation: alert, awake and oriented x3 HENMT Head: normal to inspection Ears: hearing grossly normal bilaterally Mouth: moist mucous membranes Chest Chest: normal inspection of the chest, normal palpation of entire chest wall and no crepitus Resp Effort & Inspection: normal respiratory effort, able to speak in complete sentences and no respiratory distress Auscultation: clear to auscultation bilaterally, no rales, no rhonchi and no wheezes Cardio Rate: regular rate Rhythm: regular rhythm Heart Sounds: S1 normal and S2 normal GI Inspection: normal to inspection, no edema and non-distended Palpation: soft, no hepatosplenomegaly, not firm, no guarding, not rigid and nontender Auscultation: normal bowel sounds Back/Spine/Pelvis Back: no CVA tenderness Thoracic/Lumbar Spine: surgical scar(s) present (lumbar spine) and lumbar spinal tenderness (difuse tenderness across the lumbar spine, no focal area of pain) Skin General skin exam: no rashes or lesions noted Trauma: no lacerations or abrasions Neuro General: alert, awake and oriented x3 Cognition: normal cognition Speech: speech normal Gait: normal gait Motor: muscle tone normal throughout and strength 5/5 throughout Sensory Exam: sensory deficits noted (no saddles paresthesias. Neuropathy BLE below the knee) Extrem General: normal to inspection, normal capillary refill, no pedal edema, no calf tenderness and normal gait Psych Appearance: grossly normal and well kempt Mental Status: mental status grossly normal Speech and Movement: speech and movement normal Course Vital Signs Vital signs: Vital Signs Temperature 35.5 C L 07/29/19 12:09 Pulse 100 H 07/29/19 12:09 Respiratory Rate 18 07/29/19 12:09 Blood Pressure 151/115 H 07/29/19 12:09 Pulse Oximetry 97 07/29/19 12:09 Temperature 35.5 C L 07/29/19 12:09 Temperature Source Temporal Artery Scan 07/29/19 12:09 Pulse 100 H 07/29/19 12:09 Respiratory Rate 18 07/29/19 12:09 Respiratory Effort Non-Labored 07/29/19 12:12 Blood Pressure 151/115 H 07/29/19 12:09 Blood Pressure Position Supine 07/29/19 12:09 Pulse Oximetry 97 07/29/19 12:09 Oxygen Delivery Method Room Air 07/29/19 12:09 Oxygen Flow Rate 0 07/29/19 12:09 Pain Level 9 07/29/19 12:09
--- NOTE | 2019-07-29 13:20 | DI.CT_ITS ---
EXAM: CT LUMBAR SPINE WO CLINICAL HISTORY: chronic pain, weakness in LLE. TECHNIQUE: CT examination was performed without contrast material. COMPARISON: No exams were available for comparison FINDINGS: The vertebral bodies are intact. The patient is status post L4 through S1 fusion. A maury and pedicle screw device is demonstrated in position. There is evidence of a L5-S1 spondylolisthesis. There may be mild narrowing of the L5-S1 disc interspace. There is no evidence of a gross disc protrusion. Th e neural canal appears widely patent. Facet joint DJD is most pronounced at L4-5 and L5-S1. The ped icle, spinous and transverse processes are intact. The sacrum and sacroiliac joints appear unremarka ble. Post surgical changes. There is evidence of L5-S1 spondylolisthesis. There is no CT evidence to sugg est a disc protrusion.
--- NOTE | 2019-07-29 13:36 | DI.RAD_ITS ---
EXAM: XR FOOT LT COMPLETE INDICATION: pain in pt with peripheral neuropathy, forefoot. COMPARISON: No exams were available for comparison TECHNIQUE: 2D digital imaging was performed. FINDINGS: The bony structures of the foot are normally mineralized. There are mild degenerative changes involvi ng the 1st metatarsal phalangeal joint. There is no evidence of a fracture or dislocation.
--- NOTE | 2019-07-29 13:36 | DI.RAD_ITS ---
EXAM: XR KNEE LT 4V AP,LAT,AMARIS,PAT INDICATION: chronic pain and instability. COMPARISON: LEFT KNEE 2 VIEW from 04/24/2011 TECHNIQUE: 2D digital imaging was performed. FINDINGS: The bony structures are normally mineralized. Joint space is intact. There is no evidence of a joint effusion. There is no evidence of a fracture or dislocation. IMPRESSION
[2019-07-29 15:54] VITALS: PULSE 88; RESP 14; TEMP 36.8; O2SAT 99
== END 2019-07-29 15:55 | disposition home or self-care (01) ==
PROVIDERS: Emergency Provider Physician Assistant; PCP General Practice
DX: R53.1 Weakness (principal); G89.29 Other chronic pain; M54.5 Low back pain; M43.17 Spondylolisthesis, lumbosacral region; R29.6 Repeated falls
CPT/HCPCS: 99284; 72131; 73564; 73630

== ENCOUNTER 2020-01-02 10:58 | Emergency (ER) | payer MEDICAID, SELFPAY ==
[2020-01-02 11:01] VITALS: BP 144/74; PULSE 94; TEMP 36.4; O2SAT 95
--- NOTE | 2020-01-02 11:30 | DI.RAD_ITS ---
EXAM: XR RIBS LT PA CHEST 3V CLINICAL HISTORY: pain TECHNIQUE: COMPARISON: XR PORTABLE CHEST AP from 06/05/2019 FINDINGS: PA view chest and 3 additional views of the left ribs were obtained. No rib fracture seen. Cardiac size within normal limits. Lungs are clear and well expanded. IMPRESSION: No evidence of acute process.
--- NOTE | 2020-01-02 11:30 | DI.RAD_ITS ---
EXAM: XR LUMBAR SPINE COMPLETE CLINICAL HISTORY: pain, fall TECHNIQUE: COMPARISON: CERV SP.WITH OBL OR FLEX/EXT from 05/09/2011 FINDINGS: Five views were obtained. There are Stokes rods in place from L4-S1 with a mild anterior spondyl olisthesis of L5 on S1. There is no acute bony or hardware fracture identified. Moderate degenerati ve changes of the lumbar spine noted. Mild degenerative changes of the SI joints noted. IMPRESSION: No evidence of acute injury.
--- NOTE | 2020-01-02 11:30 | DI.RAD_ITS ---
EXAM: XR THORACIC SPINE COMPLETE CLINICAL HISTORY: fall injury TECHNIQUE: COMPARISON: XR thoracic spine complete from 04/27/2019 FINDINGS: Five views were obtained. There are mild degenerative changes of the thoracic spine. No fracture id entified. IMPRESSION:
--- NOTE | 2020-01-02 11:30 | DI.RAD_ITS ---
EXAM: XR ELBOW RT COMPLETE CLINICAL HISTORY: fall pain TECHNIQUE: COMPARISON: No exams were available for comparison FINDINGS: Three views were obtained. There is no evidence of an elbow joint effusion or hemarthrosis. No frac ture is seen. Note is made of a prominent osteophyte of the olecranon. IMPRESSION:
--- NOTE | 2020-01-02 11:30 | DI.RAD_ITS ---
EXAM: XR HIP LT COMPLETE AP PELVIS CLINICAL HISTORY: pain, fall TECHNIQUE: COMPARISON: XR hip RT complete AP pelvis from 04/27/2019 FINDINGS: Three views were obtained. No hip or pelvic fracture identified. IMPRESSION:
--- NOTE | 2020-01-02 11:30 | DI.RAD_ITS ---
EXAM: XR CERVICAL SP CESAR TRAUMA 2-3V CLINICAL HISTORY: fall, injury TECHNIQUE: COMPARISON: XR THORACIC SPINE COMPLETE from 01/02/2020 FINDINGS: Four views were obtained. C6 and C7 not well visualized on the lateral view. No fracture identified on the films obtained. IMPRESSION:
[2020-01-02] MEDS: Acetaminophen 500 MG TAB 1000 MG PO (12:00)
--- NOTE | 2020-01-02 12:00 | ED.GENADUL_ITS ---
Discharge Plan Disposition Patient Disposition: HOME Condition: Stable Discharge Details Chief Complaint: Orthopedic Clinical Impression: Back pain, Contusion Primary Care Provider: Gissell Thompson ED Provider: Liliana Hughes Home Meds and New Rx's Prescriptions: New cyclobenzaprine 10 mg tablet 10 mg PO TID PRN (Reason: muscle spasm) Qty: 10 RF: 0 hydrocodone-acetaminophen [[place]] 5-325 mg tablet 1 tab PO Q6H PRN (Reason: pain) Qty: 2 RF: 0 No Action omeprazole 40 mg capsule,delayed release(DR/EC) 40 mg PO DAILY RF: 0 bisoprolol fumarate 5 mg tablet 5 mg PO DAILY Qty: 90 RF: 6 cyanocobalamin (vitamin B-12) 1,000 MCG tablet 1,000 mcg PO DAILY RF: 0 nitroglycerin 0.4 MG tablet, sublingual 0.4 mg Buccal ONCE RF: 0 clopidogrel [Plavix] 75 MG tablet 75 mg PO DAILY Qty: 90 RF: 4 aspirin 81 MG tablet,chewable 81 mg PO DAILY Qty: 90 RF: 4 rosuvastatin [Crestor] 40 MG tablet 40 mg PO DAILY Qty: 90 RF: 4 Discharge Instructions Instructions: Contusion in Adults (ED), Back Pain (ED) Additional Instructions: Drink plenty of fluids. Use muscle relaxant as prescribed. Observe closely for any signs of head injury. Rest activities as tolerated. Return immediately for any worsening, concerning or alarming symptoms. Ice to the areas of pain and swelling after your fall. Recheck with PCP in the next 3 to 5 days Discharge Data Discharge Date/Time-TO BE ENTERED AT DEPARTURE: 01/02/20 14:08 Medical Decision Making This is a 59-year-old patient who is complaining of multiple sites of injury after fall in his home. Patient reports complaints of back pain, left chest pain, right elbow pain and left hip pain after falling at home. Patient has bilateral lower extremity braces and was pivoting, leg was caught and he fell striking his left chest against the couch. Patient denies striking head, no loss of consciousness. Denies any headache, dizziness, nausea, vomiting. Has no concerns with his head at this time. Upon initial evaluation patient denied use of blood thinners however patient's medical list does reveal use of Plavix. Patient reports he takes only aspirin. However patient has absolutely no headache complaints at this time or associated head injury symptoms. On exam patient does have inferior midline tenderness of the spine and tenderness throughout the thoracic and lower lumbar spine. Left anterior rib pain with palpation, right elbow pain with bony palpation as well as swelling present over the right elbow joint. Patient with left hip pain with palpation as well as with range of motion. No other lower extremity complaints. Patient's preference is imaging at this time to rule out fracture. Patient does report he strained his back several times in the past and he does feel that he is likely developing muscle spasm of his back. Patient did drive himself to the emergency room and did ambulate to the bed. Patient's x-ray evaluations are negative for acute injuries. I did discuss management of his injuries at length. Patient strongly prefers prescription of narcotic as well as muscle relaxant. Patient now becoming quite agitated after discussion of use of pain medications. I did offer him 10 tablets of muscle relaxant and declined use of narcotics however patient became very insistent that he has strained his back several times in the past and this is what works. After long discussion with the patient I will provide him 2 tablets of [place] however he insists on more. I declined to give him more as I recommended trial of [id number] medications and muscle relaxant first and only use of pain medicine if severely uncomfortable or having difficulty sleeping. Advised the patient to follow-up if requires additional medication with his PCP. Offered Lidoderm patches and he declines. Discussed close observation for any development of head injury symptoms. Patient again has no concerns in his head at this time but was recommended to return for any concerns of developing head injury symptoms. Patient reports his understanding. I recommended close follow-up with his primary care doctor for any persistence of pain. The patient was stable and requested discharge. Prior to discharge, my usual and customary return precautions were reviewed with the patient - this included follow-up instructions and reasons to return to the Emergency Department if conditions worsens, does not improve as expected, or other new concerns arise. HPI General Date/Time Provider Initiated Documentation: 01/02/20 11:31 . HPI Narrative: This is a 59-year-old patient presenting to the emergency room after sustaining a fall today. Patient reports he will typically require some assistance when ambulating as he has bilateral leg braces. Patient reports he was pivoting which is not his strength and his leg was caught he reached out to the couch to catch himself and missed the couch falling striking his left chest on the couch and falling to the ground. Patient denies striking his head or his neck. Patient is complaining of back pain, right elbow pain and swelling, left hip pain and left chest pain. Patient denies loss of consciousness, headache, dizziness, nausea, vomiting. Denies any numbness, tingling or weakness of extremities. Patient has baseline neuropathy of his bilateral lower legs. Patient is concerned as his back pain is becoming intolerable. Patient denies hematuria since fall. Patient denies any other sites of pain or concerns. History of back surgery. Patient denies use of blood thinners however Plavix is noted on his medical list after doing medication reconciliation. Related Data Home Medications Medication Instructions Recorded Confirmed cyanocobalamin (vitamin B-12) 1,000 mcg PO DAILY 01/17/16 01/02/20 nitroglycerin 0.4 mg BUCCAL ONCE tab-cap 01/17/16 01/02/20 aspirin 81 mg PO DAILY #90 tab-cap 02/15/18 01/02/20 clopidogrel [Plavix] 75 mg PO DAILY #90 tab-cap 02/15/18 01/02/20 rosuvastatin [Crestor] 40 mg PO DAILY #90 tab-cap 02/15/18 01/02/20 omeprazole 40 mg capsule,delayed 40 mg PO DAILY 09/12/19 01/02/20 release bisoprolol fumarate 5 mg tablet 5 mg PO DAILY #90 tab-cap 11/15/19 01/02/20 cyclobenzaprine 10 mg PO TID PRN #10 tab 01/02/20 hydrocodone-acetaminophen [[place]] 1 tab PO Q6H PRN #2 tab 01/02/20 Previous Rx's Medication Instructions Recorded aspirin 81 mg PO DAILY #90 tab-cap 02/15/18 clopidogrel [Plavix] 75 mg PO DAILY #90 tab-cap 02/15/18 rosuvastatin [Crestor] 40 mg PO DAILY #90 tab-cap 02/15/18 bisoprolol fumarate 5 mg tablet 5 mg PO DAILY #90 tab-cap 11/15/19 cyclobenzaprine 10 mg PO TID PRN #10 tab 01/02/20 hydrocodone-acetaminophen [[place]] 1 tab PO Q6H PRN #2 tab 01/02/20 Allergies Allergy/AdvReac Type Severity Reaction Status Date / Time cephalexin monohydrate Allergy Severe Swelling/Ed Unverified 01/02/20 11:07 [From Keflex] aren Penicillins Allergy Severe Swelling/Ed Unverified 01/02/20 11:07 aren bee stings Allergy Severe Swelling/Ed Uncoded 01/02/20 11:07 aren General Stated Complaint: Orthopedic WILLEM: 3 Review of Systems All systems reviewed & are unremarkable except as noted in HPI and below Constitutional Constitutional: Denies fatigue, Denies headache(s) and Denies weakness Eyes Eyes: Denies blurry vision ENT Ears, Nose, Mouth, and Throat: Denies headache(s) Cardiovascular Cardiovascular: Reports chest pain, Denies syncope, Denies lightheadedness and Denies dyspnea on exertion Respiratory Respiratory: Denies cough, Reports pain on inspiration, Reports pain with cough, Denies dyspnea on exertion and Denies wheezing Gastrointestinal Gastrointestinal: Denies abdominal pain, Denies diarrhea, Denies nausea and Denies vomiting Genitourinary Genitourinary: Denies hematuria Musculoskeletal Musculoskeletal: Reports abnormal gait (Baseline), Reports back pain, Denies deformity, Reports joint swelling (Right elbow), Denies numbness, Denies radiating pain into limb and Denies tingling Neurologic Neurologic: Reports abnormal gait (Baseline), Denies syncope, Denies headache(s), Denies numbness, Denies tingling and Denies weakness Endocrine Endocrine: Denies fatigue Allergic/Immunologic Allergic/Immunologic: Denies wheezing [facility] Medical History Chest pain (Acute) Hypercholesteremia (Acute) Lower extremity pain, left (Acute) NSTEMI (non-ST elevated myocardial infarction) (Acute ~05/2019) GRAY (obstructive sleep apnea) (Chronic) Peripheral neuropathy (Acute) Post-PR pericarditis (Acute) PUD (peptic ulcer disease) (Chronic) STEMI (ST elevation myocardial infarction) (Acute) Tobacco abuse (Acute) Vitamin B 12 deficiency (Acute) Social History Smoking/Tobacco Use Status: Current every day Tobacco Type: cigarettes Years smoked: 48 Quit status: considering quitting Counseling given: provider counseling Alcohol Intake: current Alcohol type: beer and wine Drug use: Occasionally Substance use type: marijuana Caregiver/Support person: No Household members: none Housing: house Communication Needs: None Do you need help understanding health information?: Rarely Pets and animals: No Sexually active: No Do you think of yourself as: straight/heterosexual Current gender identity: male What is your relationship status?: never How often do you talk on the phone with friends or family?: twice per week How often do you get together with friends or relatives?: decline to answer How often do you attend christian or confucianist services?: decline to answer Do you belong to any clubs or organized social groups?: decline to answer Panel score (0-1 are the most socially isolated patients): 0 What type of physical activity do you participate in: decline to answer Duration: decline to answer Frequency: decline to answer Tala/Bahai: No preference Special tala needs: No Seatbelt use: always Helmet use: No Drive intox or ride w/intox 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 Well hydrated. Alert and oriented. HENMT: Head nomocephalic, normal to inspection. Atraumatic. Hearing grossly normal. EYES: General normal appearance. Alignment normal. Eyelids normal. Conjunctiva normal. NECK: Normal visual inspection. FROM. Trachea midline. Inferior cervical midline tenderness. Mild paraspinal tenderness. CHEST: Normal insepection of the chest. Left anterior chest pain with palpation along the ribs superiorly. No crepitus RESP: Normal respiratory effort. Speaking full sentences. No cough. No audible wheezing. No retractions. Breath sounds are full and equal bilaterally. No wheezing, rhonchi or rales. Regular rate and rhythm CARDIO: No JVD. Regular rate and rhythm GI: Bowel sounds present in all 4 quadrants, abdomen is soft. Nontender. No peritoneal signs, rebound or guarding Back: Moderate tenderness throughout the spine including the inferior cervical spine, thoracic spine, superior aspect of lumbar spine nontender, lower aspect of lumbar spine tenderness noted in the midline. Moderate associated paraspinal tenderness along the right paraspinal muscles of the thoracic spine. No CVA tenderness noted. MUSCULOSKELETAL: Right arm exam benign with the exception of obvious swelling to the right elbow with focal tenderness over the lateral epicondyle and olecranon. Some pain with range of motion noted. Supination pronation intact. No forearm pain with palpation. Software Trainer strength intact. Left arm exam is benign. Lower extremity exam reveals focal tenderness to the left lateral hip. Pain with internal/external rotation of the hip. Straight leg raise is intact bilaterally. No knee pain with palpation. No pain to the bilateral lower extremities beyond the knee. SKIN: Normal. Dry. No rashes. NEURO: Alert and awake. Speech clear. PSYCH: Normal affect. Cooperative. Course Vital Signs Vital signs: Vital Signs Temperature 36.4 C L 01/02/20 11:01 Pulse 94 H 01/02/20 11:01 Blood Pressure 144/74 H 01/02/20 11:01 Pulse Oximetry 95 01/02/20 11:01 Temperature 36.4 C L 01/02/20 11:01 Temperature Source Skin 01/02/20 11:01 Pulse 94 H 01/02/20 11:01 Blood Pressure 144/74 H 01/02/20 11:01 Blood Pressure Position Sitting 01/02/20 11:01 Pulse Oximetry 95 01/02/20 11:01 Oxygen Delivery Method Room Air 01/02/20 11:01 Oxygen Flow Rate 0 01/02/20 11:01 Pain Level 9 01/02/20 11:01 Comment 01/02/20 11:01
[2020-01-02 12:59] VITALS: BP 118/79; PULSE 71; RESP 18; TEMP 36.2; O2SAT 96
== END 2020-01-02 14:08 | disposition home or self-care (01) ==
PROVIDERS: Emergency Provider Physician Assistant; PCP Nurse Practitioner
DX: S50.01XA Contusion of right elbow, initial encounter (principal); W01.190A Fall on same level from slipping, tripping and stumbling with subsequent striking against furniture, initial encounter; R07.89 Other chest pain
CPT/HCPCS: 71101; 99284; 72040; 72072; 72110; 73080; 73502

== ENCOUNTER 2020-01-03 13:12 | Outpatient (CLI) | payer MEDICAID, SELFPAY ==
[2020-01-03 14:33] LABS: Calculated LDL 42 mg/dL (<100); Cholesterol 82 mg/dL (<200); HDL Cholesterol 27 mg/dL (40-60); Triglyceride 68 mg/dL (<150)
== END 2020-01-03 13:32 ==
PROVIDERS: PCP Nurse Practitioner; Visit Provider Nurse Practitioner
DX: E78.5 Hyperlipidemia, unspecified (principal); Z13.1 Encounter for screening for diabetes mellitus
CPT/HCPCS: 36415; 80061; 83036

== ENCOUNTER 2020-03-13 19:53 | Emergency (ER) | payer MEDICAID, SELFPAY ==
[2020-03-13] VITALS (19 sets, daily range): BP systolic 98–121; BP diastolic 59–84; PULSE 64–79; RESP 16–47; TEMP 36.2; O2SAT 92–97
--- NOTE | 2020-03-13 20:30 | DI.RAD_ITS ---
EXAM: XR PORTABLE CHEST AP CLINICAL HISTORY: <cough/fever> TECHNIQUE: 2D digital imaging was performed. COMPARISON: XR RIBS LT PA CHEST 3V from 01/02/2020 XR THORACIC SPINE COMPLETE from 01/02/2020 FINDINGS: LUNGS: Clear. No pleural abnormality seen. An azygos lobe, a normal variant is noted. HEART: Normal. MEDIASTINUM: Normal. There are degenerative changes at the right sternoclavicular joint. Surgical clips are noted near th e GE junction. IMPRESSION: No acute pulmonary findings. DATA REPOSITORY: RADIATION DOSE DELIVERED:
[2020-03-13] MEDS: Normal Saline 1,000 ML 125 ML IV (20:43)
[2020-03-13] MEDS: Aspirin 81 MG CHEW 243 MG CH (20:43)
--- NOTE | 2020-03-13 20:44 | W.ED.GENAD ---
Discharge Plan Disposition Patient Disposition: HOME Discharge Details Chief Complaint: Chest Pain Clinical Impression: Cough, Dyspnea Primary Care Provider: Gissell Thompson ED Provider: Sukh Keen Home Meds and New Rx's Prescriptions: No Action omeprazole 40 mg capsule,delayed release(DR/EC) 40 mg PO DAILY RF: 0 thiamine HCl (vitamin B1) 50 mg tablet 50 mg PO DAILY RF: 0 nitroglycerin 0.4 mg tablet, sublingual 0.4 mg Buccal ONCE Qty: 30 RF: 3 aspirin 81 mg tablet,chewable 81 mg PO DAILY Qty: 90 RF: 4 bisoprolol fumarate 5 mg tablet 5 mg PO DAILY Qty: 90 RF: 6 clopidogrel [Plavix] 75 mg tablet 75 mg PO DAILY Qty: 90 RF: 4 rosuvastatin [Crestor] 40 mg tablet 40 mg PO DAILY Qty: 90 RF: 4 cyanocobalamin (vitamin B-12) 1,000 MCG tablet 1,000 mcg PO DAILY RF: 0 cyclobenzaprine 10 mg tablet 10 mg PO TID PRN (Reason: muscle spasm) Qty: 10 RF: 0 Discharge Instructions Instructions: Acute Cough (ED), Dyspnea (ED) Additional Instructions: At this time your work-up in the ER did not reveal any obvious emergent process. You were tested for COVID. That test is still pending. Please watch for new or worsening symptoms and return to the ER for any concerns. I strongly recommend that you contact your primary care provider tomorrow for prompt outpatient reevaluation. Stand Alone Forms: POSITIVE COVID-19/TO BE TESTED Medical Decision Making 59-year-old gentleman with extensive past medical history including HI, stent placement, CAD, vertigo, chronic cough, COPD, peptic ulcer disease, presenting with what he describes as a fever of 101.8, dry cough, runny nose, chest pressure across the anterior aspect, left chest discomfort, the been going on since Thursday. Fever has resolved. He reports that at rest he feels pretty well however his chest discomfort is worse with exertion or deep breathing. This does not feel like his previous cardiac episodes. Clinically he appears well, nontoxic. O2 sats are 96% on room air, respiratory rate in the low 20s. He is afebrile. Lungs are clear to auscultation. This certainly sounds more infectious in nature however given his history we will give 3 aspirin as he already took a single baby aspirin today, will initiate a cardiac work-up and given his exertional dyspnea we will also obtain a BNP. Given his fever on Thursday he is in room 6, considered a PE URI, and proper precautions were taken. Laboratories reveal a CBC of 12.07, absolute neutrophils 8.12. D-dimer less than 308, BNP 121, initial troponin less than 0.05. Upon reevaluation patient is resting comfortably. He is agreeable to wait for a repeat troponin. We discussed if his troponin is unremarkable he can likely be discharged home. We discussed COVID testing tomorrow however he cannot arrange transportation, will test for COVID now Repeat EKG performed at 2337 interpreted and reviewed with Dr. Burris. No significant change from initial EKG. Sinus rhythm, ventricular rate of 66. No acute ST elevation or depression. Repeat troponin does not reveal any upward trend. Patient appears well, nontoxic. Patient was observed in the ER and had a successful cardiac rapid rule out. D-dimer was unremarkable, no indication for emergent CTA. BNP 121, x-ray and examination not consistent with CHF. Given his slightly elevated white count to believe this is likely a viral illness, certainly cannot rule out COVID. Patient is not describing any increase sputum production or wheezing, COPD exacerbation less likely. Patient has no additional questions or concerns and is comfortable discharge at this time. Will encourage him to return to the ER for new or worsening symptoms, otherwise contact his primary care provider tomorrow for prompt outpatient reevaluation. Medical Records Medical records reviewed: Yes I reviewed the patient's medical records. Imaging Data Radiologic Study: Attestation: I personally reviewed and interpreted this imaging study as follows: Imaging: X-Ray Radiologist's impression: Chest x-ray read by virtual radiology as negative Lab Data Lab results reviewed: Yes I reviewed the patient's lab results. Lab results narrative: Laboratory Tests Range/Units 03/13/20 03/13/20 03/13/20 20:13 20:13 20:13 WBC (4.4-10.8) k/cumm 12.07 H RBC (4.50-6.00) m/cumm 5.39 Hgb (13.5-17.5) g/dL 17.2 Hct (40.0-50.0) % 49.6 MCV (80-95) fL 92.0 MCH (27.0-33.0) pg 31.9 MCHC (32.0-36.0) g/dL 34.7 RDW (11.8-14.1) % 13.1 Plt Count (130-400) x1000/uL 209 MPV (8.0-11.0) fL 10.9 Immature Gran % % 0.3 Neutrophils % 67.3 Lymphocytes % 22.0 Monocytes % 8.4 Eosinophils % 1.7 Basophils % 0.3 Absolute Neutrophils (1.2-6.7) k/cumm 8.12 H Absolute Lymphocytes (1.2-3.4) k/cumm 2.66 Absolute Monocytes (0.11-0.7) k/cumm 1.01 H Absolute Eosinophils (0.0-0.7) k/cumm 0.21 Absolute Basophils (0.0-0.2) k/cumm 0.04 PT (9.3-11.0) sec 10.4 INR (0.9-1.1) 1.0 APTT (21.0-31.4) sec 25.9 D-Dimer (<500) ng/mlFEU Sodium (136-145) mmol/L 137 Potassium (3.5-5.1) mmol/L 4.1 Chloride (98-107) mmol/L 103 Carbon Dioxide (21.0-32.0) mmol/L 24.3 Anion Gap (3-11) mmol/L 9.7 BUN (7-18) mg/dL 11 Creatinine (0.70-1.30) mg/dL 0.95 Estimated GFR/1.73 m2 (mL/min/1.73m2) >= 60.00 Glucose (74-106) mg/dL 159 H Calcium (8.5-10.1) mg/dL 8.7 Magnesium (1.8-2.4) mg/dL 2.1 Total Bilirubin (0.2-1.0) mg/dL 0.4 AST (15-37) U/L 26 ALT (16-63) U/L 49 Alkaline Phosphatase (46-116) U/L 116 Troponin I (<0.06) ng/Ml < 0.05 NT-Pro-B Natriuret Pep (<300) pg/mL 121 Total Protein (6.4-8.2) g/dL 7.9 Albumin (3.4-5.0) g/dL 4.1 Range/Units 03/13/20 20:13 WBC (4.4-10.8) k/cumm RBC (4.50-6.00) m/cumm Hgb (13.5-17.5) g/dL Hct (40.0-50.0) % MCV (80-95) fL MCH (27.0-33.0) pg MCHC (32.0-36.0) g/dL RDW (11.8-14.1) % Plt Count (130-400) x1000/uL MPV (8.0-11.0) fL Immature Gran % % Neutrophils % Lymphocytes % Monocytes % Eosinophils % Basophils % Absolute Neutrophils (1.2-6.7) k/cumm Absolute Lymphocytes (1.2-3.4) k/cumm Absolute Monocytes (0.11-0.7) k/cumm Absolute Eosinophils (0.0-0.7) k/cumm Absolute Basophils (0.0-0.2) k/cumm PT (9.3-11.0) sec INR (0.9-1.1) APTT (21.0-31.4) sec D-Dimer (<500) ng/mlFEU 308 Sodium (136-145) mmol/L Potassium (3.5-5.1) mmol/L Chloride (98-107) mmol/L Carbon Dioxide (21.0-32.0) mmol/L Anion Gap (3-11) mmol/L BUN (7-18) mg/dL Creatinine (0.70-1.30) mg/dL Estimated GFR/1.73 m2 (mL/min/1.73m2) Glucose (74-106) mg/dL Calcium (8.5-10.1) mg/dL Magnesium (1.8-2.4) mg/dL Total Bilirubin (0.2-1.0) mg/dL AST (15-37) U/L ALT (16-63) U/L Alkaline Phosphatase (46-116) U/L Troponin I (<0.06) ng/Ml NT-Pro-B Natriuret Pep (<300) pg/mL Total Protein (6.4-8.2) g/dL Albumin (3.4-5.0) g/dL ECG Data Attestation: I personally reviewed and interpreted this ECG (s) as follows: Interpretation: EKG performed at 2006, interpreted and reviewed with Dr. Burris. Sinus rhythm, ventricular rate of 75. No acute ST elevation depression or elevation segments. HPI General Mode of arrival: ambulatory. Date/Time Provider Initiated Documentation: 03/13/20 20:03. Limitations to Documentation: no limitations. Information obtained by: patient. HPI Narrative: This is a 59-year-old gentleman who reports a past medical history that includes chest pain, hyperlipidemia, STEMI, sleep apnea, peripheral neuropathy, pericarditis, PVD, smokes 10 cigarettes daily. He reports a history of at least 15 heart attacks last episode 1 year ago. He reports a lot of stents the last, 2 years ago. He presents to the ER this evening reporting a fever that occurred on Thursday night, T-max of 101.8. At that time he had some cold sweats. He states the next morning the fever was gone. Associated with his symptoms on Thursday night were left-sided lateral chest wall discomfort and upper-anterior chest pressure, worse with taking a deep breath. He reports a mild chronic dry cough which he associates with his COPD. He reports rhinorrhea. He reports shortness of breath with exertion but believes this to be near his baseline. He contacted his primary care provider and they recommended going to the ER however he did not have a ride so he had to wait till today to be evaluated. He denies any headache, neck pain, sore throat, productive cough, radiation of his chest discomfort, abdominal pain, nausea, vomiting, change in bowel or bladder function,, pain or swelling in his legs. He does report chronic leg issues, wears a lower leg brace on his right leg and a full knee brace on his left leg. He denies recent travel, sick contacts. Related Data Home Medications Medication Instructions Recorded Confirmed cyanocobalamin (vitamin B-12) 1,000 mcg PO DAILY 01/17/16 03/13/20 omeprazole 40 mg capsule,delayed 40 mg PO DAILY 09/12/19 03/13/20 release cyclobenzaprine 10 mg PO TID PRN #10 tab 01/02/20 03/13/20 aspirin 81 mg chewable tablet 81 mg PO DAILY #90 tab-cap 01/10/20 03/13/20 bisoprolol fumarate 5 mg tablet 5 mg PO DAILY #90 tab-cap 01/10/20 03/13/20 clopidogrel 75 mg tablet 75 mg PO DAILY #90 tab-cap 01/10/20 03/13/20 rosuvastatin 40 mg tablet 40 mg PO DAILY #90 tab-cap 01/10/20 03/13/20 nitroglycerin 0.4 mg sublingual 0.4 mg BUCCAL ONCE #30 tab-cap 02/20/20 03/13/20 tablet thiamine HCl (vitamin B1) 50 mg 50 mg PO DAILY 02/20/20 02/20/20 tablet Previous Rx's Medication Instructions Recorded cyclobenzaprine 10 mg PO TID PRN #10 tab 01/02/20 aspirin 81 mg chewable tablet 81 mg PO DAILY #90 tab-cap 01/10/20 bisoprolol fumarate 5 mg tablet 5 mg PO DAILY #90 tab-cap 01/10/20 clopidogrel 75 mg tablet 75 mg PO DAILY #90 tab-cap 01/10/20 rosuvastatin 40 mg tablet 40 mg PO DAILY #90 tab-cap 01/10/20 nitroglycerin 0.4 mg sublingual 0.4 mg BUCCAL ONCE #30 tab-cap 02/20/20 tablet Allergies Allergy/AdvReac Type Severity Reaction Status Date / Time cephalexin monohydrate Allergy Severe Swelling/Ed Unverified 02/20/20 11:42 [From Keflex] aren Penicillins Allergy Severe Swelling/Ed Unverified 02/20/20 11:42 aren bee stings Allergy Severe Swelling/Ed Uncoded 02/20/20 11:42 aren General Stated Complaint: Chest Pain WILLEM: 3 Review of Systems Constitutional Constitutional: Denies fatigue, Reports fever(s) (Resolved) and Denies headache(s) Eyes Eyes: Denies eye discharge ENT Ears, Nose, Mouth, and Throat: Denies headache(s), Reports nasal discharge and Denies sore throat Cardiovascular Cardiovascular: Reports chest pain, Denies irregular heart rhythm and Reports dyspnea Respiratory Respiratory: Reports cough, Reports dyspnea and Denies wheezing Gastrointestinal Gastrointestinal: Denies abdominal pain, Denies nausea and Denies vomiting Genitourinary Genitourinary: Denies dysuria Musculoskeletal Musculoskeletal: Denies back pain Integumentary/Breasts Skin/Breast: Denies rash Neurologic Neurologic: Denies headache(s) Endocrine Endocrine: Denies fatigue Allergic/Immunologic Allergic/Immunologic: Denies wheezing [facility] Medical History Chest pain (Acute) Hypercholesteremia (Acute) Lower extremity pain, left (Acute) NSTEMI (non-ST elevated myocardial infarction) (Acute ~05/2019) GRAY (obstructive sleep apnea) (Chronic) Peripheral neuropathy (Acute) Post-HI pericarditis (Acute) PUD (peptic ulcer disease) (Chronic) STEMI (ST elevation myocardial infarction) (Acute) Tobacco abuse (Acute) Vitamin B 12 deficiency (Acute) Social History Smoking/Tobacco Use Status: Current every day Tobacco Type: cigarettes Years smoked: 48 Quit status: considering quitting Counseling given: provider counseling Alcohol Intake: current Alcohol Intake frequency: a few times a week Alcohol type: beer and wine Drug use: Occasionally Substance use type: marijuana Caregiver/Support person: No Household members: none Housing: house Communication Needs: None Do you need help understanding health information?: Rarely Pets and animals: No Sexually active: No Do you think of yourself as: straight/heterosexual Current gender identity: male What is your relationship status?: never How often do you talk on the phone with friends or family?: twice per week How often do you get together with friends or relatives?: decline to answer How often do you attend hoahaoism or gnosticism services?: decline to answer Do you belong to any clubs or organized social groups?: decline to answer Panel score (0-1 are the most socially isolated patients): 0 What type of physical activity do you participate in: decline to answer Duration: decline to answer Frequency: decline to answer Tala/Rastafari: No preference Special tala needs: No Seatbelt use: always Helmet use: No Drive intox or ride w/intox freight delivery driver: No Do you feel safe at home: Yes Do you feel safe in your relationship?: Yes Exam Const General: cooperative, healthy appearing, comfortable and no acute distress Orientation: alert, awake and oriented x3 HENMT Head: normal to inspection, normocephalic and atraumatic Ears: external ears normal, TM's normal bilaterally and EAC's normal Face and sinus: normal facial exam Mouth: moist mucous membranes Throat: posterior oropharynx normal Eyes Conjunctivae: conjunctivae normal Neck Neck: normal visual inspection, full ROM, no lymphadenopathy, trachea midline, supple and nontender Chest Chest: normal inspection of the chest and normal palpation of entire chest wall Resp Effort & Inspection: normal respiratory effort and able to speak in complete sentences Auscultation: clear to auscultation bilaterally Cardio Rate: regular rate Rhythm: regular rhythm GI Inspection: normal to inspection Palpation: soft, no guarding, not rigid and nontender Auscultation: normal bowel sounds Back/Spine/Pelvis Back: back tenderness Skin General skin exam: no rashes or lesions noted Neuro General: patient alert, patient awake, patient oriented x3, moves all extremities and no focal motor deficits Cognition: normal cognition Motor: muscle tone normal throughout Sensory Exam: no sensory deficits noted Extrem General: normal to inspection, no pedal edema and no calf tenderness Psych Appearance: grossly normal Mental Status: mental status grossly normal Course Vital Signs Vital signs: Vital Signs Pulse 79 03/13/20 20:06 Respiratory Rate 27 H 03/13/20 20:06 Blood Pressure 121/84 03/13/20 20:06 Pulse Oximetry 96 03/13/20 20:06 Temperature 36.2 C L 03/13/20 20:08 Temperature Source Oral 03/13/20 20:08 Pulse 73 03/13/20 20:15 Pulse 74 03/13/20 20:15 Respiratory Rate 25 H 03/13/20 20:15 Respiratory Effort Non-Labored 03/13/20 20:14 Respiratory Depth Normal 03/13/20 20:14 Respiratory Pattern Normal 03/13/20 20:14 Blood Pressure 106/67 03/13/20 20:15 Blood Pressure Mean 75 03/13/20 20:15 Blood Pressure Position Sitting 03/13/20 20:08 Pulse Oximetry 97 03/13/20 20:15 Oxygen Delivery Method Room Air 03/13/20 20:08 Oxygen Flow Rate 0 03/13/20 20:08 Pain Level 3 03/13/20 20:14
[2020-03-13 20:45] LABS: Abs Immature Grans 0.04 k/cumm (0.0-0.09); Absolute Basophil Count 0.04 k/cumm (0.0-0.2); Absolute Eosinophil Count 0.21 k/cumm (0.0-0.7); Absolute Lymphocyte Count 2.66 k/cumm (1.2-3.4); Absolute Monocyte Count 1.01 k/cumm (0.11-0.7); Absolute Neutrophil Count 8.12 k/cumm (1.2-6.7); Basophils % 0.3; Eosinophils % 1.7; HCT 49.6 % (40.0-50.0); HGB 17.2 g/dL (13.5-17.5); Immature Grans % 0.3 %; Mean Corp. HGB Concentration 34.7 g/dL (32.0-36.0); Mean Corpuscular Hemoglobin 31.9 pg (27.0-33.0); Mean Platelet Volume 10.9 fL (8.0-11.0); Monocytes % 8.4; Neutrophils % 67.3; Platelet Count 209 x1000/uL (130-400); RBC 5.39 m/cumm (4.50-6.00); RBC Distribution Width 13.1 % (11.8-14.1); White Blood Cell Count 12.07 k/cumm (4.4-10.8)
[2020-03-13 20:56] LABS: PTT Activated 25.9 sec (21.0-31.4); Prothrombin Time 10.4 sec (9.3-11.0)
[2020-03-13 21:04] LABS: ALT 49 U/L (16-63); AST 26 U/L (15-37); Albumin 4.1 g/dL (3.4-5.0); Alkaline Phosphatase 116 U/L (46-116); Anion Gap 9.7 mmol/L (3-11); BUN 11 mg/dL (7-18); Bilirubin, Total 0.4 mg/dL (0.2-1.0); CO2 24.3 mmol/L (21.0-32.0); CREATININE 0.95 mg/dL (0.70-1.30); Calcium 8.7 mg/dL (8.5-10.1); Chloride 103 mmol/L (98-107); Glucose 159 mg/dL (74-106); Magnesium 2.1 mg/dL (1.8-2.4); NT-proBNP 121 pg/mL (<300); Potassium 4.1 mmol/L (3.5-5.1); Sodium 137 mmol/L (136-145); Total Protein 7.9 g/dL (6.4-8.2)
[2020-03-13 21:05] LABS: Troponin I < 0.05 ng/Ml (<0.06)
--- NOTE | 2020-03-13 21:15 | DI.VRAD_ITS ---
PROCEDURE INFORMATION: Exam: XR Chest, 1 View Exam date and time: 03/13/2020 8:56 PM Age: 59 years old Clinical indication: Other: Cough/fever TECHNIQUE: Imaging protocol: XR of the chest Views: 1 view. COMPARISON: CR XR RIBS LT PA CHEST 3V 01/02/2020 12:35 PM FINDINGS: Lungs: There is an azygos lobe. There is no evidence of an infiltrate or a pleural effusion. Pleural space: See above. Heart/Mediastinum: The cardiac, mediastinal hilar silhouettes are unremarkable. Bones/joints: Unremarkable. Other findings: The patient is status post surgery at the level of the GE junction. IMPRESSION: No evidence of an infiltrate or a pleural effusion. No significant change when compared to the earlier study. Dictated and Authenticated by: William Jerome MD. Ordering:RUFINO Luz MD
[2020-03-13 22:12] LABS: D-Dimer 308 ng/mlFEU (<500)
[2020-03-14 00:01] VITALS: BP 111/82; PULSE 71; RESP 17; O2SAT 96
[2020-03-14 00:05] LABS: Troponin I < 0.05 ng/Ml (<0.06)
[2020-03-14 00:28] VITALS: BP 111/82; PULSE 71; RESP 17; O2SAT 96
[2020-03-15 16:02] LABS: COVID-19 RT-PCR Result Not Detected ((See Note))
== END 2020-03-14 00:25 | disposition home or self-care (01) ==
PROVIDERS: Emergency Provider Physician Assistant; PCP Nurse Practitioner
DX: R06.00 Dyspnea, unspecified (principal); R05 Cough; R50.9 Fever, unspecified; J44.9 Chronic obstructive pulmonary disease, unspecified; F17.210 Nicotine dependence, cigarettes, uncomplicated
CPT/HCPCS: 36415; 80053; 93005; 96360; 96361; 99285; U0003; 71045; 83735; 83880; 84484; 85025; 85379; 85610; 85730; 93010

== ENCOUNTER 2020-03-28 02:52 | Emergency (ER) | payer MEDICAID, SELFPAY ==
[2020-03-28 03:14] VITALS: BP 129/70; PULSE 77; RESP 18; TEMP 37; O2SAT 97
--- NOTE | 2020-03-28 03:14 | W.ED.GENAD ---
Discharge Plan Disposition Patient Disposition: HOME Condition: Good Discharge Details Chief Complaint: Nk/Back Pain Clinical Impression: Acute exacerbation of chronic low back pain, Fall at home Primary Care Provider: Gissell Thompson ED Provider: Daniel Burris [place] Meds and New Rx's Prescriptions: New Hydrocodone/Apap 5/325, 4 Tab [[place] 5/325, 4 Tabs/Btl] 1 tab PO BID Qty: 4 RF: 0 Continued omeprazole 40 mg capsule,delayed release(DR/EC) 40 mg PO DAILY RF: 0 methocarbamol 500 mg tablet 500 mg PO TID Qty: 20 RF: 0 thiamine HCl (vitamin B1) 50 mg tablet 50 mg PO DAILY RF: 0 nitroglycerin 0.4 mg tablet, sublingual 0.4 mg Buccal ONCE Qty: 30 RF: 3 aspirin 81 mg tablet,chewable 81 mg PO DAILY Qty: 90 RF: 4 bisoprolol fumarate 5 mg tablet 5 mg PO DAILY Qty: 90 RF: 6 clopidogrel [Plavix] 75 mg tablet 75 mg PO DAILY Qty: 90 RF: 4 rosuvastatin [Crestor] 40 mg tablet 40 mg PO DAILY Qty: 90 RF: 4 cyanocobalamin (vitamin B-12) 1,000 MCG tablet 1,000 mcg PO DAILY RF: 0 Discharge Instructions Instructions: Hydrocodone/Acetaminophen (By mouth), Back Pain (ED) Additional Instructions: X-rays are negative for fracture or hardware malfunction. You will need to discuss with primary care further pain management therapies. The prepack of hydrocodone/acetaminophen provided here should give you short term pain relief until you are able to contact and follow-up with primary care. You should consider trying gabapentin once again. You may buy lidocaine patches [id number] and continue using these. Return to ED if you develop new neurologic dysfunction, inability to ambulate, bladder or bowel dysfunction. Referrals: Gissell Thompson, [employer] [Primary Care Provider] - Medical Decision Making I have reviewed the patient's medical records over the last 6 months. He has chronic back pain and frequent falls. He has some evidence of presenting to ED for narcotics. He does have note from his new primary care requesting a use of narcotics. EMS started an IV but did not provide analgesia. He was also switched from Flexeril to Robaxin by PCP to try to decrease side effects. He has no midline spinal tenderness. I will obtain x-ray of pelvis and LS-spine. Will treat with 1 dose IV Toradol, Flexeril, Lidoderm patch. Consider starting gabapentin. 04:40 -x-ray of the LS spine and pelvis negative for fracture. Hardware from previous back surgery intact. Urinalysis negative. Bladder scan with only 170 and patient then voided 120 of urine. Patient reports no significant relief with medications prescribed. Has been on gabapentin in the past and states it does not work. Requesting narcotics. Told patient that he would need to discuss this with primary care. Specifically referenced note requesting no narcotic prescriptions be given from ED. Patient reports that previous primary care would prescribe short-term narcotics for pain like this with prior falls. I did review the [facility] site. In the course of 1 year there are a total of 8 short-term prescriptions for hydrocodone/acetaminophen. This seems to correspond with patient's report. Still somebody with chronic pain should have pain management per primary care. Will give the prepack hydrocodone/acetaminophen from here to give him short term relief until he is able to contact and follow-up with primary care. Note, patient is sitting on stretcher with his right leg completely flexed up under his left leg watching videos on his phone while waiting for discharge. Medical Records Medical records reviewed: Yes I reviewed the patient's medical records. HPI General Mode of arrival: EMS. Date/Time Provider Initiated Documentation: 03/28/20 02:53. Limitations to Documentation: no limitations. Information obtained by: patient, EMS, RN notes reviewed and old records reviewed. HPI Narrative: Patient presents to ED with complaint of increased back pain with radiation into the right posterior thigh since a fall on Thursday. Patient has history of chronic back pain and frequent falls. Reports standing at the sink and falling backwards onto his buttocks. Pain shot all the way up his spine and days 10. He denies striking his head or having loss of consciousness. He has had increased pain in his back and buttocks ever since. He called his primary care on Thursday after the weekend. He has been using Tylenol and Robaxin without relief. Primary care told him he would need to come to ED for evaluation. He is chronic neuropathy in his legs and thus has numbness. He reports that he is able to still to get around but is not able to sleep because of pain. Taking a hot bath gives him some relief for about half an hour. He reports bladder and bowel difficulty, and there is unable to go at times. He also reports intermittent headaches since the fall despite not hitting his head. No report of chest pain, shortness of breath, abdominal pain, vomiting. Related Data Home Medications Medication Instructions Recorded Confirmed cyanocobalamin (vitamin B-12) 1,000 mcg PO DAILY 01/17/16 03/28/20 omeprazole 40 mg capsule,delayed 40 mg PO DAILY 09/12/19 03/28/20 release aspirin 81 mg chewable tablet 81 mg PO DAILY #90 tab-cap 01/10/20 03/28/20 bisoprolol fumarate 5 mg tablet 5 mg PO DAILY #90 tab-cap 01/10/20 03/28/20 clopidogrel 75 mg tablet 75 mg PO DAILY #90 tab-cap 01/10/20 03/28/20 rosuvastatin 40 mg tablet 40 mg PO DAILY #90 tab-cap 01/10/20 03/28/20 nitroglycerin 0.4 mg sublingual 0.4 mg BUCCAL ONCE #30 tab-cap 02/20/20 03/28/20 tablet thiamine HCl (vitamin B1) 50 mg 50 mg PO DAILY 02/20/20 03/28/20 tablet methocarbamol 500 mg tablet 500 mg PO TID #20 tab 03/16/20 03/28/20 HYDROcodone/APAP 5/325, 4 tab 1 tab PO BID #4 tab 03/28/20 [[place] 5/325, 4 tabs/btl] Previous Rx's Medication Instructions Recorded aspirin 81 mg chewable tablet 81 mg PO DAILY #90 tab-cap 01/10/20 bisoprolol fumarate 5 mg tablet 5 mg PO DAILY #90 tab-cap 01/10/20 clopidogrel 75 mg tablet 75 mg PO DAILY #90 tab-cap 01/10/20 rosuvastatin 40 mg tablet 40 mg PO DAILY #90 tab-cap 01/10/20 nitroglycerin 0.4 mg sublingual 0.4 mg BUCCAL ONCE #30 tab-cap 02/20/20 tablet methocarbamol 500 mg tablet 500 mg PO TID #20 tab 03/16/20 HYDROcodone/APAP 5/325, 4 tab 1 tab PO BID #4 tab 03/28/20 [[place] 5/325, 4 tabs/btl] Allergies Allergy/AdvReac Type Severity Reaction Status Date / Time cephalexin monohydrate Allergy Severe Swelling/Ed Unverified 03/28/20 03:21 [From Keflex] aren Penicillins Allergy Severe Swelling/Ed Unverified 03/28/20 03:21 aren bee stings Allergy Severe Swelling/Ed Uncoded 03/28/20 03:21 aren General WILLEM: 3 Review of Systems Narrative: As documented in HPI otherwise negative as below. Const: no fever, chills Resp: no SOB, pleuritic pain CV: no CP, diaphoresis, syncope GI: no abdominal pain, nausea, vomiting, diarrhea Neuro: headache, numbness; no focal weakness, confusion [facility] Medical History (Updated 03/28/20 @ 04:47 by Daniel Burris MD) Hypercholesteremia (Acute) Lower extremity pain, left (Acute) NSTEMI (non-ST elevated myocardial infarction) (Acute ~05/2019) GRAY (obstructive sleep apnea) (Chronic) Peripheral neuropathy (Acute) Post-MA pericarditis (Acute) PUD (peptic ulcer disease) (Chronic) STEMI (ST elevation myocardial infarction) (Acute) Tobacco abuse (Acute) Vitamin B 12 deficiency (Acute) Surgical History (Updated 03/28/20 @ 03:42 by Daniel Burris MD) History of heart artery stent (Chronic) Previous back surgery (Chronic) Social History Smoking/Tobacco Use Status: Current every day Tobacco Type: cigarettes Years smoked: 48 Quit status: considering quitting Counseling given: provider counseling Alcohol Intake: current Alcohol Intake frequency: a few times a week Alcohol type: beer and wine Drug use: Occasionally Substance use type: marijuana Caregiver/Support person: No Household members: none Housing: house Communication Needs: None Do you need help understanding health information?: Rarely Pets and animals: No Sexually active: No Do you think of yourself as: straight/heterosexual Current gender identity: male What is your relationship status?: never How often do you talk on the phone with friends or family?: twice per week How often do you get together with friends or relatives?: decline to answer How often do you attend catholic or buddhist services?: decline to answer Do you belong to any clubs or organized social groups?: decline to answer Panel score (0-1 are the most socially isolated patients): 0 What type of physical activity do you participate in: decline to answer Duration: decline to answer Frequency: decline to answer Tala/Mandaeism: No preference Special tala needs: No Seatbelt use: always Helmet use: No 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 Const: WDWN male in NAD. HEENT: NC/AT. Normal facial exam. Eyes: Normal conjunctiva and sclera. Neck: Supple. Trachea midline. Lungs: Normal respiratory effort. Cor: Good distal pulses. Back: No midline spinal tenderness. Neuro: A+O x 3. Normal speech, mentation. Cranial nerves II - XII grossly intact. Decreased sensation distal lower extremities related to neuropathy. Strength seems to be limited by effort and pain. Moves surprisingly well on the stretcher when carrying on conversation. Lifts his right leg right up off the stretcher to grab his posterior thigh complaining of pain there. Able to stand and pivot from ambulance stretcher to our stretcher. Ext: No C/C/E. Skin: Warm and dry without rash.
[2020-03-28] MEDS: Lidocaine 5% Patch 1 PATCH TP (03:46)
[2020-03-28] MEDS: Ketorolac 15 MG/ML VIAL IVP (03:46)
[2020-03-28] MEDS: Cyclobenzaprine 10 MG TAB PO (03:47)
--- NOTE | 2020-03-28 03:55 | DI.RAD_ITS ---
EXAM: XR LUMBAR SPINE AP, LAT CLINICAL HISTORY: increase back pain after fall. TECHNIQUE: 2D digital imaging was performed. COMPARISON: CR XR KNEE LT 4V AP,LAT,AMARIS,PAT from 07/29/2019 CR XR LUMBAR SPINE COMPLETE from 01/02/2020 FINDINGS: BONES: No fracture or destructive lesion. Vertebral bodies are unremarkable. Stable postsurgical shivam nges of spinal fusion from L4-S1. DISKS: Intervertebral disc spaces are maintained. ALIGNMENT: Lumbar spinal alignment is within normal limits. SOFT TISSUE: Postsurgical changes are seen in the left abdomen. IMPRESSION: No acute fracture or subluxation in the lumbar spine. DATA REPOSITORY: RADIATION DOSE DELIVERED:
[2020-03-28 04:04] LABS: Bilirubin Negative (Negative); Blood Negative (Negative); Clarity Clear (Clear); Glucose Negative (Negative); Ketones Negative (Negative); Leukocyte Esterase Negative (Negative); Nitrite Negative (Negative); Specific Gravity >= 1.030 (1.005-1.025); Urobilinogen 0.2 EU/dL (Up TO 0.2)
--- NOTE | 2020-03-28 04:10 | DI.RAD_ITS ---
EXAM: XR PELVIS AP CLINICAL HISTORY: fall. TECHNIQUE: 2D digital imaging was performed. COMPARISON: No exams were available for comparison FINDINGS: BONES: No acute fracture is present. No bony destructive lesion is seen. JOINTS: No dislocation present. No joint space narrowing is present. SOFT TISSUE: Normal. IMPRESSION: No acute fracture or dislocation. DATA REPOSITORY: RADIATION DOSE DELIVERED:
--- NOTE | 2020-03-28 04:22 | DI.VRAD_ITS ---
PROCEDURE INFORMATION: Exam: XR Lumbosacral Spine, 2 or 3 Views Exam date and time: 03/28/2020 3:57 AM Age: 59 years old Clinical indication: Injury or trauma; Initial encounter; Blunt trauma (contusions or hematomas); Injury date: 03/23/20; Injury details: Fell 5 days ago with increased back pain after fall, pain going down right leg; Prior surgery; Surgery date: 6+ months; Surgery type: Back surgery TECHNIQUE: Imaging protocol: XR of the lumbosacral spine, 2 or 3 views. COMPARISON: CR XR LUMBAR SPINE COMPLETE 01/02/2020 12:18 PM FINDINGS: Posterior spinal fusion and transpedicular screws at L4 and S1, grossly stable. Vertebral body height and alignment are grossly stable. No concerning soft tissue abnormality. Postsurgical changes in the left abdomen are grossly stable IMPRESSION: No acute findings. Grossly stable chronic changes Dictated and Authenticated by: Uriel Cade MD. Ordering:CONTRERAS Sanchez MD
--- NOTE | 2020-03-28 04:23 | DI.VRAD_ITS ---
PROCEDURE INFORMATION: Exam: XR Pelvis Exam date and time: 03/28/2020 3:59 AM Age: 59 years old Clinical indication: Injury or trauma; Initial encounter; Blunt trauma (contusions or hematomas); Bilateral; Pelvic region; Injury date: 03/23/20; Injury details: Fall with low back pain and pain into right hip down right leg; Prior surgery; Surgery date: 6+ months; Surgery type: Back surgery TECHNIQUE: Imaging protocol: XR pelvis. Views: 1 or 2 view. COMPARISON: No relevant prior studies available. FINDINGS: Bones/joints: Mild degenerative changes. No acute fracture. Soft tissues: Unremarkable. IMPRESSION: No acute fracture noted Dictated and Authenticated by: Uriel Cade MD. Ordering:CONTRERAS Sanchez MD
--- NOTE | 2020-03-28 04:25 | NUR.NOTE ---
Nursing Note: Pt requesting to sit on side of the bed. Very unsteady without braces on legs. 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 Pt repositions well- independently and frequently. Able to lift self forward in seated position using the side rails and both arms all the way to the end of the bed. Sits on left side with both legs folded underneath him. Good extension and flexion noted.
[2020-03-28 05:08] VITALS: PULSE 70; RESP 18; TEMP 37; O2SAT 97
== END 2020-03-28 05:10 | disposition home or self-care (01) ==
LOC: ER 05:07
PROVIDERS: Emergency Provider Emergency Medicine; PCP Nurse Practitioner
DX: M54.5 Low back pain (principal); G89.29 Other chronic pain; W19.XXXA Unspecified fall, initial encounter; R26.81 Unsteadiness on feet; R29.6 Repeated falls; G62.9 Polyneuropathy, unspecified
CPT/HCPCS: 96374; 99284; 72100; 72170; 81003; J1885

== ENCOUNTER 2020-04-11 02:55 | Outpatient (CLI) | payer MEDICAID, SELFPAY ==
[2020-04-11 15:06] LABS: TSH (W/Ref FT4) 0.44 uIU/mL (0.36-3.74); Vitamin B12 1363 pg/mL (193-986)
[2020-04-13 13:54] LABS: Albumin 55.8 % (55.8-66.1); Total Protein 7.7 g/dL (6.3-8.2)
== END 2020-04-11 03:15 ==
PROVIDERS: PCP Nurse Practitioner; Visit Provider Psychiatry & Neurology Neurology
DX: G62.9 Polyneuropathy, unspecified (principal)
CPT/HCPCS: 36415; 82607; 84165; 84443

== ENCOUNTER 2020-05-01 08:21 | Outpatient (CLI) | payer MEDICAID, SELFPAY ==
[2020-05-01 22:37] LABS: COVID-19 RT-PCR UVMMC Result Negative (Negative)
== END 2020-05-01 08:41 ==
PROVIDERS: PCP Nurse Practitioner; Visit Provider Surgery
DX: Z01.818 Encounter for other preprocedural examination (principal); Z11.59 Encounter for screening for other viral diseases
CPT/HCPCS: U0003

== ENCOUNTER 2020-05-04 09:09 | Day surgery (SDC) | payer MEDICAID, SELFPAY ==
[2020-05-04 09:47] VITALS: BP 107/70; PULSE 85; RESP 18; TEMP 36.1; O2SAT 96
[2020-05-04] MEDS: Lactated Ringers 1,000 ML 80 ML IV (10:06)
--- NOTE | 2020-05-04 11:04 | W.PM.DSUDISC ---
Discharge Plan Disposition Patient Disposition: HOME Condition: Good Discharge Details Reason For Visit: EGD, Colonoscopy Attending Provider: Carole Yung Primary Care Provider: Gissell Thompson Home Meds and New Rx's Prescriptions: Continued methocarbamol 500 mg tablet 500 mg PO TID Qty: 20 RF: 0 thiamine HCl (vitamin B1) 50 mg tablet 50 mg PO DAILY RF: 0 nitroglycerin 0.4 mg tablet, sublingual 0.4 mg Buccal ONCE Qty: 30 RF: 3 aspirin 81 mg tablet,chewable 81 mg PO DAILY Qty: 90 RF: 4 bisoprolol fumarate 5 mg tablet 5 mg PO DAILY Qty: 90 RF: 6 rosuvastatin [Crestor] 40 mg tablet 40 mg PO DAILY Qty: 90 RF: 4 gabapentin 300 mg capsule 300 mg PO DIRECTED 30 Days Qty: 102 RF: 0 cyanocobalamin (vitamin B-12) 1,000 MCG tablet 1,000 mcg PO DAILY RF: 0 clopidogrel [Plavix] 75 mg tablet 75 mg PO DAILY Qty: 90 RF: 4 omeprazole 40 mg capsule,delayed release(DR/EC) 40 mg PO DAILY RF: 0 Discontinued polyethylene glycol 3350 17 gram/dose powder 238 g PO ONCE Qty: 238 RF: 0 bisacodyl 5 mg tablet,delayed release (DR/EC) 5 mg PO ONCE Qty: 4 RF: 0 Discharge Instructions Additional Instructions: Findings: Your stomach showed moderate inflammation. Biopsies were performed. 5 polyps were removed from the colon. My office will contact you with biopsy results. Follow up: Plan for a follow up colonoscopy in 3 years Please call if you develop: fevers >101.5 Nausea or Vomiting Abdominal pain that is not transient DAY SURGERY UNIT POST COLONOSCOPY INSTRUCTIONS 1. Because there will be medication in your system for the next 24 hours, you may feel a little sleepy. Your coordination will be affected. Therefore: a. Do not drive or operate dangerous equipment for 24 hours. b. Do not drink alcohol beverages for 24 hours (not even beer). c. Plan to go home and rest for the day. 2. Generally there are no restrictions on your activity after a day or so has gone by, but you may feel a bit fatigued for a few days. 3 After you arrive home you may have a light meal and return to a normal diet as you can tolerate it without feeling sick to your stomach. 4. After surgery, you may feel pain or discomfort. This should be only transient, but if it persists please contact your doctor. 5. If there are any questions regarding the findings of your procedure, please feel free to contact your doctor. 6. If you are unable to contact your doctor with a problem, contact the hospital at [phone]. 7. Continue all your regular medications unless directed otherwise. I understand the above instructions and have no questions. Signature of Patient or Responsible Adult Escort Date/Time Name of Responsible Adult Escort Signature of Nurse Date/Time Activity:: Activity as Tolerated Diet:: As Tolerated Discharge Orders Discharge Orders: Discharge Order (Routine); Ordered 05/04/20 Ordered By: Carole Yung DS: Diagnosis Discharge Diagnosis (1) Gastritis: Status: Acute (2) Colon polyps: Status: Acute
--- NOTE | 2020-05-04 11:20 | BOWEL_PTH ---
PATIENT: Raad Butler LOC: [facility] U#:[id number] AGE/SX: 59/M ROOM: RE05/04/[address]: Carole Yung MD : 1960 BED: DIS: 05/04/2020 SPEC #: [id number] RECD: 05/04/20 12:47 STATUS: BERT REQ #: [id number] FRANCISCO: 05/04/20 11:[address]: Carole Yung DEPT: Surgical Specimen RECD BY: Vika Jacobs ENTERED: 05/04/20 12:48 SP TYPE: Bowel OTHR DR: Gissell Thompson, PhD TRAFFIC CHIEF Tissues: 1 - STOMACH BIOPSY 2 - BIOPSY BOWEL 3 - BIOPSY BOWEL 4 - BIOPSY BOWEL 5 - BIOPSY BOWEL Procedures: GROSS AND MICRO LEVEL 4 Comments: [id number]
--- NOTE | 2020-05-04 12:32 | W.COLOREPORT ---
Date of service: 05/04/20 Time of Service: 12:32 Colonoscopy Report Date of procedure: 05/04/20 Pre-op diagnosis general: Vomiting, screening colonoscopy Post-op diagnosis procedure note: other (Gastritis, s/p distal gastrectomy. Colon polyps) Procedure: EGD with biopsy Colonoscopy with snare polypectomy and cold forceps polypectomy Surgeon: Carole Yung Anesthesia proc note operative: MAC Indications: This patient presents for his first screening colonoscopy. He notes frequent vomiting. He has a history of distal gastrectomy done for PUD. Procedure Description: The patient was placed in the left lateral position and propofol titrated to sedation. The endoscope was advanced into the esophagus under direct visualization. The scope was passed through the stomach. The gastrojejunostomy was widely patent. There was moderate gastritis in the stomach, most likely related to bile reflux. Biopsies were taken at the edge of the anastomosis. Retroflexed view of the fundus showed gastritis but no other abnormalities. The GE junction was inspected and showed no significant stricture, inflammation, masses or Barretts. The scope was slowly withdrawn with no other esophageal lesions found. Digital rectal examination revealed no abnormalities. The scope was advanced to the cecum without difficulty. The ileocecal valve and appendiceal orifice were clearly identified. The prep was good. A less than 1cm polyp was removed from the cecum with snare polypectomy. A 1cm polyp was removed from the ascending colon with the snare and a hemostatic clip applied. A similar polyp was removed at the splenic flexure with a clip applied. Two diminuitive polyps were removed from the descending colon with the biopsy forceps and sent in the same specimen container. The rectum was normal including on retroflexed view. The patient tolerated the procedure well and was stable to recovery. Plan for routine colonoscopy in 3 years.
[2020-05-04 13:37] VITALS: BP 101/68; PULSE 90; RESP 24; TEMP 36.3; O2SAT 93
== END 2020-05-04 13:52 | disposition home or self-care (01) ==
PROVIDERS: PCP Nurse Practitioner; Visit Provider Surgery
PROC: 0DJD8ZZ Inspection of Lower Intestinal Tract, Via Natural or Artificial Opening Endoscopic (ICD-10-PCS; CPT 45378; principal; 2020-05-04 11:00)
DX: Z12.11 Encounter for screening for malignant neoplasm of colon (principal); R11.10 Vomiting, unspecified; K31.89 Other diseases of stomach and duodenum; D12.0 Benign neoplasm of cecum; D12.2 Benign neoplasm of ascending colon; D12.4 Benign neoplasm of descending colon; D12.3 Benign neoplasm of transverse colon; Z90.3 Acquired absence of stomach [part of]; J44.9 Chronic obstructive pulmonary disease, unspecified
CPT/HCPCS: 45385; 45380; 43239; 88305; J2001; J2704

== ENCOUNTER 2020-07-12 01:12 | Outpatient (CLI) | payer MEDICAID, SELFPAY ==
--- NOTE | 2020-07-12 08:15 | DI.MRI_ITS ---
EXAM: MR THORACIC SPINE WO CLINICAL HISTORY: bilateral foot drop; no neuropathy, weakness, freq falls, R53.1, M21.371. TECHNIQUE: Multiplanar multisequence MRI of the Thoracic spine was performed. COMPARISON: No exams were available for comparison FINDINGS: Bones: The vertebral body heights are well maintained. Alignment is satisfactory. The signal characte ristics are unremarkable. Cord: The thoracic cord is normal size and signal intensity. No intrinsic cord lesion is present. Discs: Small diffuse disc bulges are seen in a few mid thoracic spine levels. No central spinal jyoti l or neural foraminal stenosis is present. Soft tissues: Normal. IMPRESSION: 1. No central spinal canal or neural foraminal stenosis. 2. Normal signal in the thoracic spinal cord. DATA REPOSITORY:
--- NOTE | 2020-07-12 08:15 | DI.MRI_ITS ---
EXAM: MR CERVICAL SPINE WO CLINICAL HISTORY: bilateral foot drop; ?myelopathy, freq falls, M21.371, M21.372, R29.6 TECHNIQUE: Multiplanar multisequence MRI of the cervical spine was performed without intravenous con trast. COMPARISON: No exams were available for comparison FINDINGS: BONES: Vertebral body heights are maintained. Intervertebral disc spaces are normal. Alignment is nor mal. Bone marrow signal intensity is within normal limits. CERVICAL CORD: Craniovertebral junction is unremarkable. The cervical cord is normal size and signal intensity. SOFT TISSUES: Unremarkable. C2-3: Mild prominence of the osteophyte disc complex. No significant central spinal canal or neural foraminal stenosis. C3-4: No disc herniation or bulge is identified. No significant central spinal canal or neural forami nal stenosis C4-5: No disc herniation or bulge is identified. No significant central spinal canal or neural forami nal stenosis C5-6: Prominence of the osteophyte disc complex mildly narrowing the central spinal canal. No signif icant neural foraminal stenosis. C6-7: No disc herniation or bulge is identified. Hypertrophic changes of the uncovertebral joints res ulting in mild bilateral neural foraminal stenosis. No significant central spinal canal stenosis. C7-T1: Prominence of the osteophyte disc complex. Hypertrophic changes of the uncovertebral joints r ight greater than left. Mild left and moderate right neural foraminal stenosis. IMPRESSION: Multilevel degenerative changes in the cervical spine resulting in central spinal canal or neural for aminal stenosis as described above. Normal signal in the spinal cord the cervical level. DATA REPOSITORY:
== END 2020-07-12 01:32 ==
PROVIDERS: PCP Nurse Practitioner; Visit Provider Psychiatry & Neurology Neurology
DX: M21.371 Foot drop, right foot (principal); R53.1 Weakness; M21.372 Foot drop, left foot; M47.812 Spondylosis without myelopathy or radiculopathy, cervical region; M48.02 Spinal stenosis, cervical region
CPT/HCPCS: 72141; 72146

== ENCOUNTER 2020-07-23 03:28 | Outpatient (CLI) | payer MEDICAID, SELFPAY ==
[2020-07-23 11:19] LABS: ALT 27 U/L (16-63); AST 21 U/L (15-37); Albumin 3.7 g/dL (3.4-5.0); Alkaline Phosphatase 98 U/L (46-116); Bilirubin, Direct 0.14 mg/dL (0.00-0.20); Bilirubin, Total 0.4 mg/dL (0.2-1.0); Creatine Kinase 158 U/L (39-308); LDH 189 U/L (85-227); Total Protein 6.9 g/dL (6.4-8.2)
[2020-07-23 11:51] LABS: ESR 6 mm/hr (1-20)
[2020-07-24 15:36] LABS: ANA Interpretation Positive (Negative); ANA Titer Pattern 1:320 Speckled
[2020-07-24 17:01] LABS: Aldolase 8.2 U/L (<7.7)
== END 2020-07-23 03:48 ==
PROVIDERS: Psychiatry & Neurology Neurology; PCP Nurse Practitioner; Visit Provider Dermatology
DX: B35.1 Tinea unguium (principal); G72.9 Myopathy, unspecified
CPT/HCPCS: 36415; 80076; 82550; 85652; 82085; 83615; 86038; 86140

== ENCOUNTER 2020-08-07 01:06 | Outpatient (CLI) | payer MEDICAID, SELFPAY ==
--- NOTE | 2020-08-07 09:45 | DI.MRI_ITS ---
EXAM: MR LUMBAR SPINE WO CLINICAL HISTORY: bilateral foot drop,PREVIOUS BACK SURGERY,BACK PAIN,M54.5,M21.371,M21.372. TECHNIQUE: Multiplanar multisequence MRI was performed. COMPARISON: CR,XR XR LUMBAR SPINE AP, LAT from 03/28/2020 CR,XR XR PELVIS AP from 03/28/2020 FINDINGS: Patient is status post surgery with rods and pedicle screws in the L4 and S1 levels. Artifact is p resent at these levels which makes portions of the spine difficult to evaluate. The vertebral bodies are well maintained in height. The marrow signal appears normal. The conus medullaris appears norm al. The T12-L1, L1-2 and L2-3 discs are intact. No central canal stenosis is seen at any level. Th e L3-4, L4-5 and L5-S1 discs appear intact as visualized. IMPRESSION: Limited exam due to hardware in the lower lumbar spine. The L3-4 through L5-S1 levels are not well e valuated. The upper spine is unremarkable. DATA REPOSITORY:
== END 2020-08-07 01:26 ==
PROVIDERS: PCP Nurse Practitioner; Visit Provider Psychiatry & Neurology Neurology
DX: M54.5 Low back pain (principal); M21.371 Foot drop, right foot; M21.372 Foot drop, left foot
CPT/HCPCS: 72148

== ENCOUNTER 2020-08-15 11:45 | Outpatient (REF) | payer MEDICAID, SELFPAY ==
[2020-08-18 12:15] LABS: 2-Hydroxy Ethyl Flurazepam Not Detected ng/mL (Cutoff: 10); 6-monoacetylmorphine Not Detected ng/mL (Cutoff: 25); Alpha-Hydroxy Midazolam Not Detected ng/mL (Cutoff: 10); Alpha-Hydroxy Triazolam Not Detected ng/mL (Cutoff: 10); Alpha-Hydroxyalprazolam Not Detected ng/mL (Cutoff: 10); Alpha-OH-alprazolam Glucuronid Not Detected ng/mL (Cutoff: 50); Alprazolam Not Detected ng/mL (Cutoff: 10); Amphetamines Negative ng/mL (Cutoff: 500); Barbiturates Negative ng/mL (Cutoff: 200); Buprenorphine Not Detected ng/mL (Cutoff: 5); Chlordiazepoxide Not Detected ng/mL (Cutoff: 10); Clobazam Not Detected ng/mL (Cutoff: 10); Clonazepam Not Detected ng/mL (Cutoff: 10); Cocaine Negative ng/mL (Cutoff: 150); Codeine Not Detected ng/mL (Cutoff: 25); Comment Normal; Creatinine, U 189.3 mg/dL; Diazepam Not Detected ng/mL (Cutoff: 10); Dihydrocodeine Not Detected ng/mL (Cutoff: 25); EDDP Not Detected ng/mL (Cutoff: 25); Fentanyl Not Detected ng/mL (Cutoff: 2); Flurazepam Not Detected ng/mL (Cutoff: 10); Hydrocodone Not Detected ng/mL (Cutoff: 25); Hydromorphone Not Detected ng/mL (Cutoff: 25); Hydromorphone-3-beta-glucuroni Not Detected ng/mL (Cutoff: 100); Lorazepam Not Detected ng/mL (Cutoff: 10); Lorazepam Glucuronide Not Detected ng/mL (Cutoff: 50); Meperidine Not Detected ng/mL (Cutoff: 25); Methadone Not Detected ng/mL (Cutoff: 25); Midazolam Not Detected ng/mL (Cutoff: 10); Morphine Not Detected ng/mL (Cutoff: 25); N-Desmethylclobazam Not Detected ng/mL (Cutoff: 200); N-desmethyltapentadol Not Detected ng/mL (Cutoff: 50); Naloxone Not Detected ng/mL (Cutoff: 25); Norbuprenorphine Not Detected ng/mL (Cutoff: 5); Norfentanyl Not Detected ng/mL (Cutoff: 2); Norhydrocodone Not Detected ng/mL (Cutoff: 25); Normeperidine Not Detected ng/mL (Cutoff: 25); Noroxycodone Not Detected ng/mL (Cutoff: 25); Noroxymorphone Not Detected ng/mL (Cutoff: 25); O-desmethyltramadol Not Detected ng/mL (Cutoff: 25); Oxazepam Glucuronide Not Detected ng/mL (Cutoff: 50); Phencyclidine Negative ng/mL (Cutoff: 25); Prazepam Not Detected ng/mL (Cutoff: 10); Propoxyphene Not Detected ng/mL (Cutoff: 25); Specific Gravity 1.023; Tapentadol Not Detected ng/mL (Cutoff: 25); Temazepam Not Detected ng/mL (Cutoff: 10); Temazepam Glucuronide Not Detected ng/mL (Cutoff: 50); Tetrahydrocannabinol Negative ng/mL (Cutoff: 50); Tramadol Not Detected ng/mL (Cutoff: 25); Triazolam Not Detected ng/mL (Cutoff: 10); Zolpidem Phenyl-4-Carboxy acid Not Detected ng/mL (Cutoff: 10); pH 5.7
== END 2020-08-15 12:05 ==
LOC: LBN 11:45
PROVIDERS: PCP Nurse Practitioner; Visit Provider Nurse Practitioner Family
DX: M54.5 Low back pain (principal); M79.605 Pain in left leg; Z79.899 Other long term (current) drug therapy
CPT/HCPCS: 80307; 80347; 80364

== ENCOUNTER 2020-09-17 00:48 | Outpatient (CLI) | payer MEDICAID, SELFPAY ==
--- NOTE | 2020-09-17 13:42 | DI.US_ITS ---
APPROVED REPORT EXAM: Comprehensive 2D, Doppler, and color-flow Echocardiogram Patient Location: Out-Patient Rn Dialysis: Sarah Braden RDCS (AE) Indications: Chest pain, CAD Other Information Study Quality: Adequate Conclusion Left ventricle is normal in size and wall thickness. Estimated ejection fraction is 60%. There are no segmental wall motion abnormalities Normal right ventricular size and systolic function Both atria are normal in size There are no significant structural valvular abnormalities Mild mitral regurgitation. Trace tricuspid regurgitation. Normal estimated right ventricular systol ic pressure. Trace physiologic pulmonic regurgitation Wall motion Left Ventricle The left ventricle is normal size. The left ventricular systolic function is normal. The left ventric ular ejection fraction is within the normal range. There is normal left ventricular wall thickness. T here is normal LV segmental wall motion. There is no ventricular septal defect visualized. LVEF is 60 %. Right Ventricle The right ventricle is normal size. The right ventricular systolic function is normal. The RVSP is 24 .5mmHg. Atria The left atrium size is normal. The right atrium size is normal. The interatrial septum is intact wit h no evidence for an atrial septal defect. Aortic Valve The aortic valve is normal in structure. Aortic valve is trileaflet. There is no aortic valvular sten osis. No aortic regurgitation is present. Mitral Valve The mitral valve is normal in structure. No evidence of mitral valve stenosis. Mild mitral regurgitat ion. Tricuspid Valve The tricuspid valve is normal in structure. There is no tricuspid valve stenosis. Trace tricuspid reg urgitation. Pulmonic Valve The pulmonary valve is normal in structure. There is no pulmonic valvular stenosis. Trace pulmonic re gurgitation. Great Vessels The aortic root is normal in size. The ascending aorta is normal in size. Aortic arch is normal in ca liber. IVC is normal in size and collapses >50% with inspiration. Pericardium There is no pericardial effusion. 2D Dimensions IVSD d PLAX 1.05 cm M: 0.6-1.2 LV Vol A2C d MOD 108.9 mL LVPW d PLAX 1.01 cm M: 0.6 - 1.2 LV Vol A4C d MOD 121.8 mL LVID d PLAX 4.65 cm M: 4.2 - 5.8 LA vol/ BSA A2C s A-L 17.8 mL/m2 LVDs 3.30 cm M: 2.5 - 4.0 LA vol/ BSA A4C s A-L 16.1 mL/m2 Ao Root d 2.59 cm M: 3.1 - 3.7 LA Vol/ BSA Biplane s A-L 17.1 mL/m2 RA Area A4C 13.36 cm2 LA Area A4C s MOD 14.78 cm2 RA Vol/ BSA A4C s A-L 15.5 mL/m2 LA Area A2C s MOD 15.36 cm2 Ao Asc Diam d 2.89 cm M: 2.6 - 3.4 LV EF A4C MOD 61.2 % LV EF Teichholz 54.3 % LV EF A2C MOD 57.3 % LVEF (Abad's) 59.75 % M: 52 - 72 LV EF Biplane MOD 59.8 % LV Volume 85.66 mL M: 62 - 150 SV 70.22 mL LV Volume Index 39.29 mL/m2 M: 34 - 74 SV Index 32.15 mL/m2 LV Vol Biplane MOD 117.5 mL FS 28.00 % M-Mode TAPSE 1.73 cm (M/F) >1.7 LV Diastology MV E' medial 0.064 (>0.07 m/s) E/A Ratio 1.0 LV E/e MED 10.45 (<14) MV E Vmax 0.67 (0.4-1.3 m/s) MV E' lateral 0.087 (>0.1 m/s) MV A Vmax 0.70 (0.4-1.3 m/s) LV E/e LAT 7.65 (<14) MV E/A Ratio 0.90 MV E/E' medial 10.49 MV E/E' lateral 7.66 Aortic Valve LVOT Area 3.55 cm2 AoV Area Vmax 2.60 cm2 LVOT Vmax 1.00 m/s AoV Area/ BSA (Vmax) 1.19 cm2/m2 LVOT Mean Jimmie. 0.60 m/s JOEL Mean Jimmie. 2.09 cm2 LVOT Peak Grad 4.0 mmHg JOEL Mean Jimmie. Index 0.96 cm2/m2 LVOT Mean Grad 1.8 mmHg LVOT VTI 0.193 m LVOT Diam s 2.10 cm AoV Vmax 1.36 m/s Velocity Ratio 0.73 AoV Mean Jimmie. 1.02 m/s AoV Peak Grad 7.4 mmHg LVOT SV 68.42 mL AoV Mean Grad 4.5 mmHg AoV VTI 0.254 m AoV Area VTI 2.70 cm2 AoV Area/ BSA (VTI) 1.23 cm/m2 Mitral Valve MV DT 188 (160-240 msec) MR Vmax 4.12 m/s MV PHT 54 msec MR VTI 1.362 m MV Area PHT 4.04 cm2 MR Peak Grad 68.0 mmHg MV VTI 0.215 m MR Mean Grad 53.0 mmHg MV VTI Annulus 0.215 m MR PISA Radius 0.45 cm MV Area VTI 3.19 (4.0-6.0 cm2) MR EROA 0.11 cm2 MR Aliasing Velocity 0.35 m/s MR PISA 1.30 cm2 Pulmonary Valve PV Vmax 0.83 (0.5-1.5 m/s) RVOT Peak Gr. 1.15 mmHg PV Peak Grad 2.8 mmHg RVOT Mean Gr. 0.55 mmHg PV Mean Grad 1.3 mmHg RVOT VTI 0.109 m PV VTI 0.149 m RVOT Vmax 0.54 m/s Tricuspid Valve TR Peak Grad 21.4 mmHg TR Vmax 2.32 m/s RA Pressure 3.00 mmHg RVSP (TR) 24.5 mmHg
== END 2020-09-17 01:08 ==
PROVIDERS: PCP Nurse Practitioner; Visit Provider Internal Medicine Cardiovascular Disease
DX: I25.10 Atherosclerotic heart disease of native coronary artery without angina pectoris (principal); I08.1 Rheumatic disorders of both mitral and tricuspid valves
CPT/HCPCS: 93306

== ENCOUNTER 2020-10-22 00:33 | Emergency (ER) | payer MEDICAID, SELFPAY ==
--- NOTE | 2020-10-22 00:15 | RT.EKG_ITS ---
APPROVED REPORT Exam: Resting ECG Patient Location: E HR:62 bpm ECG Measurements Heart Rate 62 AXIS SC 188 P 55 QRSd 104 QRS 11 QT 444 T 16 QTc 450 Conclusion Sinus rhythm...normal P axis, V-rate 60- 99
[2020-10-22 00:30] VITALS: BP 118/65; PULSE 68; RESP 16; TEMP 36.8; O2SAT 90
--- NOTE | 2020-10-22 00:42 | ED.GENADUL_ITS ---
Discharge Plan Disposition Patient Disposition: HOME Condition: Stable Discharge Details Clinical Impression: Shortness of breath, Pleural effusion, Emphysema of lung Primary Care Provider: Gissell Thompson ED Provider: Ortiz Pierce Home Meds and New Rx's Prescriptions: New levofloxacin 750 mg tablet 750 mg PO DAILY Qty: 5 RF: 0 prednisone 20 mg tablet 60 mg PO DAILY 4 Days Qty: 12 RF: 0 furosemide [Lasix] 20 mg tablet 20 mg PO DAILY Qty: 20 RF: 0 Continued terbinafine HCl 250 mg tablet 250 mg PO DAILY RF: 0 omeprazole 40 mg capsule,delayed release(DR/EC) 40 mg PO DAILY RF: 0 nitroglycerin 0.4 mg tablet, sublingual 0.4 mg Buccal ONCE Qty: 30 RF: 3 thiamine HCl (vitamin B1) 50 mg tablet 50 mg PO DAILY Qty: 90 RF: 3 aspirin 81 mg tablet,chewable 81 mg PO DAILY Qty: 90 RF: 4 bisoprolol fumarate 5 mg tablet 5 mg PO DAILY Qty: 90 RF: 6 rosuvastatin [Crestor] 40 mg tablet 40 mg PO DAILY Qty: 90 RF: 4 cyclobenzaprine 10 mg tablet 10 mg PO TID PRN (Reason: muscle spasm) 90 Days Qty: 270 RF: 3 cyanocobalamin (vitamin B-12) 1,000 MCG tablet 1,000 mcg PO DAILY RF: 0 clopidogrel [Plavix] 75 mg tablet 75 mg PO DAILY Qty: 90 RF: 4 gabapentin 600 mg tablet 600 mg PO TID 30 Days Qty: 90 RF: 11 ipratropium bromide 0.02 % Solution 2.5 ml INHALATION QID PRNRF: 0 Discharge Instructions Additional Instructions: Your blood work did not show any concerning findings. Your cat scan showed a small amount of fluid in the lungs Follow up with your primary care provider this week and discuss continuing your lasix that we are starting today if you feel more ill, have worsening shortness of breath or pain return to the emergency department Medical Decision Making 59 yo chronic smoker with hx of emphysema, cad, who comes in with chief complaint of shortness of breath worsening with exertion over 11 days and cough that's productive of sputum. Had a subjective fever for several days but none since last Thursday. States no chest pressure now but 2 days ago did have some anterior chest discomfort. Has traveled to [place] recently otherwise no travel. He arrives with room air saturations in the 90's with no jvd or leg swelling. No calf tenderness. He does have wheezing on exam so could be copd exacerbation, will tx with steroids and neb. Will also test for flu and covid and obtain a ct to evaluate for PE vs pna given the cough and subjective fevers. Doubt acs given lack of chest pain and reassuring ecg. pt remains stable laying in bed watching videos on his phone withot respiratory distress and stable vitals with oxygen saturation in the mid 90's on room air. His labs are unremarkable, and ct suboptimal for PE but does have small pleursal effusions and ground glass attenuations consistent with likely chf and he states he has been on lasix in the past. I felt on initial assessment he may require admission and given symptoms felt rapid covid test would be indicated. I did offer to admit for observation but he declined and would prefer to be d/c'd and f/u with pcp. I feel this is reasonable given stable vital signs and reassuring lab work and imaging showing a cause for his symptoms. I will start him on prednisone for his emphysema and also start levofloxacin for copd exacerbation and lasix daily. He understands to f/u with his pcp and return preacutions given Differential Diagnosis Differential Diagnosis: pna, covid19, influenza, copd, chf Medical Records Medical records reviewed: Yes I reviewed the patient's medical records. Imaging Data Radiologic Study: Attestation: I personally reviewed and interpreted this imaging study as follows: Imaging: CT Scan Radiologist's impression: IMPRESSION: Septal lines , peribronchial cuffing, and extensive ground-glass attenuation with bilateral small pleural effusions may reflect CHF. A superimposed infectious process not excluded in the correct clinical. Lab Data Lab results reviewed: Yes I reviewed the patient's lab results. ECG Data Attestation: I personally reviewed and interpreted this ECG (s) as follows: Prior ECG tracings: not available for review Interpretation: sinus rhythm, rate of 62, pr 188, qtc [address] t wave ischemic findings HPI General Mode of arrival: EMS . Date/Time Provider Initiated Documentation: 10/22/20 00:40 . Limitations to Documentation: no limitations . Information obtained by: patient . History of Present Illness 59 year old M presents to the emergency department with the chief complaint of shortness of breath, described as moderate, Patient started experiencing this day(s) (11) and it has been constant. Rest improves symptom(s), Movement worsens symptoms . Patient notes cough. Patient did receive the following treatments prior to arrival, none Related Data Home Medications Medication Instructions Recorded Confirmed cyanocobalamin (vitamin B-12) 1,000 mcg PO DAILY 01/17/16 10/22/20 aspirin 81 mg chewable tablet 81 mg PO DAILY #90 tab-cap 01/10/20 10/22/20 bisoprolol fumarate 5 mg tablet 5 mg PO DAILY #90 tab-cap 01/10/20 10/22/20 rosuvastatin 40 mg tablet 40 mg PO DAILY #90 tab-cap 01/10/20 10/22/20 nitroglycerin 0.4 mg sublingual 0.4 mg BUCCAL ONCE #30 tab-cap 02/20/20 10/22/20 tablet clopidogrel 75 mg tablet 75 mg PO DAILY #90 tab-cap 05/03/20 10/22/20 thiamine HCl (vitamin B1) 50 mg 50 mg PO DAILY #90 tab 06/29/20 10/22/20 tablet gabapentin 600 mg tablet 600 mg PO TID 30 Days #90 tab 07/02/20 10/22/20 cyclobenzaprine 10 mg tablet 10 mg PO TID PRN 90 Days #270 tab 08/15/20 10/22/20 omeprazole 40 mg capsule,delayed 40 mg PO DAILY 10/08/20 10/22/20 release terbinafine HCl 250 mg tablet 250 mg PO DAILY 10/08/20 10/22/20 furosemide [Lasix] 20 mg PO DAILY #20 tab 10/22/20 ipratropium bromide 2.5 ml INHALATION QID PRN 10/22/20 10/22/20 levofloxacin 750 mg PO DAILY #5 tab 10/22/20 prednisone 60 mg PO DAILY 4 Days #12 tab 10/22/20 Previous Rx's Medication Instructions Recorded aspirin 81 mg chewable tablet 81 mg PO DAILY #90 tab-cap 01/10/20 bisoprolol fumarate 5 mg tablet 5 mg PO DAILY #90 tab-cap 01/10/20 rosuvastatin 40 mg tablet 40 mg PO DAILY #90 tab-cap 01/10/20 nitroglycerin 0.4 mg sublingual 0.4 mg BUCCAL ONCE #30 tab-cap 02/20/20 tablet clopidogrel 75 mg tablet 75 mg PO DAILY #90 tab-cap 05/03/20 thiamine HCl (vitamin B1) 50 mg 50 mg PO DAILY #90 tab 06/29/20 tablet gabapentin 600 mg tablet 600 mg PO TID 30 Days #90 tab 07/02/20 cyclobenzaprine 10 mg tablet 10 mg PO TID PRN 90 Days #270 tab 08/15/20 furosemide [Lasix] 20 mg PO DAILY #20 tab 10/22/20 levofloxacin 750 mg PO DAILY #5 tab 10/22/20 prednisone 60 mg PO DAILY 4 Days #12 tab 10/22/20 Allergies Allergy/AdvReac Type Severity Reaction Status Date / Time cephalexin monohydrate Allergy Severe Swelling/Ed Verified 10/08/20 11:58 [From Keflex] aren Penicillins Allergy Severe Swelling/Ed Verified 10/08/20 11:58 aren bee stings Allergy Severe Swelling/Ed Uncoded 10/08/20 11:58 aren General Stated Complaint: RespSymp WILLEM: 2 Review of Systems All systems reviewed & are unremarkable except as noted in HPI and below Constitutional Constitutional: Denies weakness Gastrointestinal Gastrointestinal: Denies abdominal pain, Denies nausea and Denies vomiting Musculoskeletal Musculoskeletal: Denies joint swelling Neurologic Neurologic: Denies weakness [facility] Medical History (Updated 10/22/20 @ 01:58 by Ortiz Pierce MD) Bilateral foot-drop CAD (coronary artery disease) Chronic cough phlegm forms in the back of the throat, pt. states he has a hard time clearing secretions, pt states has long as he doesn't turn left and right, it gets worse COPD (chronic obstructive pulmonary disease) History of ETOH abuse Hypercholesteremia Hypertension NSTEMI (non-ST elevated myocardial infarction) (~05/2019) GRAY (obstructive sleep apnea) does not use a device Post-MT pericarditis Pre-diabetes PUD (peptic ulcer disease) STEMI (ST elevation myocardial infarction) 06/05/19- F/U with Tobacco abuse Vitamin B 12 deficiency Surgical History History of colonoscopy (~04/2020) History of heart artery stent pt. unsure of how many stents he has but state he has lost count, states last stent was 2 years ago and was a steel one so you can't MRI me per pt. History of partial gastrectomy Previous back surgery L-spine infusion Family History Other Unobtainable family history due to orphan status Social History (Updated 10/08/20 @ 12:04 by Anika Jimenez LPN) Smoking/Tobacco Use Status: Current every day Tobacco Type: cigarettes Tobacco: How many years used: 48 Quit status: considering quitting Counseling given: provider counseling Smoking risk assessment performed?: Yes Alcohol Intake: current Alcohol Intake frequency: holidays/special occasions only Alcohol type: beer and wine Drug use: Rarely Substance use type: marijuana Caregiver/Support person: No Household members: none Housing: house Number of Children: 0 Communication Needs: None Do you need help understanding health information?: Rarely current occupation: [employer]; Disabled Pets and animals: No Sexually active: No Do you think of yourself as: straight/heterosexual Current gender identity: male What is your relationship status?: never How often do you talk on the phone with friends or family?: once per week How often do you get together with friends or relatives?: once per week How often do you attend voodoo or spiritism services?: decline to answer Do you belong to any clubs or organized social groups?: no Panel score (0-1 are the most socially isolated patients): 0 What type of physical activity do you participate in: none and decline to answer Duration: decline to answer Frequency: decline to answer Tala/Taoism: No preference Special tala needs: No Seatbelt use: always Helmet use: No Drive 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 Do you feel safe at home: Yes Do you feel safe in your relationship?: Yes Exam Const General: no acute distress Orientation: alert [facility] Head: normal to inspection Ears: external ears normal General nose exam: external nose normal Mouth: moist mucous membranes Eyes General: appearance normal, both eyes and all related structures Neck Neck: normal visual inspection Resp Effort & Inspection: other (wheezing in apices bilaterally and bases) Cardio Rate: regular rate Skin General skin exam: no rashes or lesions noted Neuro General: patient alert and patient oriented x3 Extrem General: normal to inspection Psych Mental Status: mental status grossly normal Course Vital Signs Vital signs: Vital Signs Temperature 36.8 C 10/22/20 00:30 Pulse 68 10/22/20 00:30 Respiratory Rate 16 10/22/20 00:30 Pulse Oximetry 90 L 10/22/20 00:30 Temperature 36.8 C 10/22/20 00:30 Temperature Source Skin 10/22/20 00:30 Pulse 68 10/22/20 00:30 Respiratory Rate 16 10/22/20 00:30 Pulse Oximetry 90 L 10/22/20 00:30 Oxygen Delivery Method Room Air 10/22/20 00:30 Oxygen Flow Rate 0 10/22/20 00:30 Lab/Test Results Lab/Test Results: 10/22/20 00:23 Blood Blood Culture - Pending 10/22/20 00:23 Blood Blood Culture - Pending
[2020-10-22 00:55] LABS: Source Nasopharynx
[2020-10-22 00:57] LABS: Abs Immature Grans 0.04 10^3/uL (0.0-0.06); Absolute Basophil Count 0.05 10^3/uL (0.0-0.2); Absolute Eosinophil Count 0.14 10^3/uL (0.0-0.7); Absolute Lymphocyte Count 2.28 10^3/uL (1.2-3.4); Absolute Monocyte Count 0.91 10^3/uL (0.1-0.8); Basophils % 0.4; Eosinophils % 1.2; HCT 40.7 % (40.0-50.0); HGB 13.5 g/dL (13.5-17.5); Immature Grans % 0.4; Lymphocytes % 20.1; MCH 31.3 pg (27.0-33.0); MCHC 33.2 % (32.0-36.0); MCV 94.4 fL (80-95); MPV 10.8 fL (8.0-11.0); Neutrophils % 69.9; Nucleated RBC 0 %; Platelet Count 154 10^3/uL (130-400); RBC 4.31 10^6/uL (4.36-5.78); RDW 12.7 % (11.8-14.1); RDW-SD 43.9 fL; WBC 11.32 10^3/uL (4.4-10.8)
[2020-10-22 00:58] LABS: BE (Venous) 2 mmol/L (-2-3); HCO3 (Venous) 27 mmol/L (23-28); O2 Sat (Venous) 93 %; TCO2 (Venous) 24 mmol/L (24-29); pCO2 (Venous) 44 mmHg (41-51); pO2 (Venous) 72 mmHg
[2020-10-22] MEDS: methylPREDNISolone SUCC 125 MG VIAL IVP (00:58)
[2020-10-22 00:59] LABS: Lactate 0.6 mmol/L (0.6-1.4)
[2020-10-22 01:09] LABS: Absolute Neutrophil Count 7.91 10^3/uL (1.2-6.7)
[2020-10-22 01:18] LABS: PTT Activated 25.2 sec (21.0-27.5); Prothrombin Time 10.3 sec (9.3-11.0)
[2020-10-22 01:25] LABS: ALT 29 U/L (16-63); AST 20 U/L (15-37); Albumin 3.2 g/dL (3.4-5.0); Alkaline Phosphatase 106 U/L (46-116); Anion Gap 6.7 mmol/L (3-11); BUN 18 mg/dL (7-18); Bilirubin, Total 0.3 mg/dL (0.2-1.0); CO2 27.3 mmol/L (21.0-32.0); Chloride 109 mmol/L (98-107); Glucose 111 mg/dL (74-106); Magnesium 1.9 mg/dL (1.8-2.4); NT-proBNP 1381 pg/mL (<300); Potassium 3.5 mmol/L (3.5-5.1); Sodium 143 mmol/L (136-145); TSH (W/Ref FT4) 0.85 uIU/mL (0.36-3.74); Total Protein 6.6 g/dL (6.4-8.2)
[2020-10-22 01:27] LABS: Troponin I < 0.05 ng/mL (<0.06)
[2020-10-22 01:30] VITALS: RESP 4; O2SAT 95
[2020-10-22] MEDS: Albuterol 2.5 MG/3 ML INH SOLN VIAL UPD (01:30)
--- NOTE | 2020-10-22 01:30 | DI.CT_ITS ---
EXAM: CT CHEST PE CTA CLINICAL HISTORY: shortness of breath and pain. TECHNIQUE: Imaging Protocol: CT angiography of the chest was performed using pulmonary embolus yue col. Multi planar reconstructions were performed. CONTRAST MATERIAL: Intravenous: Omnipaque 350 Contrast volume: 100 cc COMPARISON: No exams were available for comparison FINDINGS: CHEST: PULMONARY ARTERIES: Opacification of the pulmonary arteries is suboptimal and therefore this study is nondiagnostic for ruling out the possibility of pulmonary emboli.The aortic arch is opacified and ex hibits normal size with no evidence of aortic dissection. LUNGS: Suboptimal inspiration.. Increased interstitial markings and peribronchial cuffing and small pleural effusions right larger than left. Possibly reflecting element of pulmonary edema but this ma y be exaggerated by poor inspiration. There is a 9 millimeter nodular density lower aspect of the ri ght upper lobe which require file follow-up. No focal findings in the trachea and mainstem bronchi. Accessory azygos lobe on the right incidentally noted. MEDIASTINUM: There is no hilar nor mediastinal adenopathy. Small nodule or colloid cyst in the latera l aspect of the left thyroid lobe. CARDIAC: Mild cardiomegaly. No pericardial effusion.Caliber of the thoracic aorta is within normal l imits. No evidence of aortic dissection. Coronary artery calcification noted. OSSEOUS: No significant osseous lesions.. PARTIALLY VISUALIZED UPPERMOST ABDOMEN: Hepatic steatosis. Surgical clips in the epigastric region. IMPRESSION: 1. Opacification of pulmonary arteries is suboptimal and this study is nondiagnostic for ruling out p ulmonary emboli. There is, however, no evidence of obvious pulmonary infarction.. 2. Lung findings and small bilateral pleural effusions may reflect an element of pulmonary edema but cannot exclude superimposed infectious process. Recommend upright nonportable PA and lateral views w hen clinically possible. 3. 9 millimeter nodular density in the right upper lobe requires appropriate follow-up. RADIATION DOSE DELIVERED: 490.9mGy.cm Total DLP DATA REPOSITORY: All CT scans at this facility are submitted to the National Radiology Data Registry (NRDR) Dose Index Registry (DIR) with the [employer] (A[employer]). RADIATION OPTIMIZATION: All CT scans at this facility use at least one of these dose optimization te chniques: automated exposure control; mA and/or kV adjustment per patient size (includes targeted exa ms where dose is matched to clinical indication); or iterative reconstruction.
[2020-10-22 01:37] VITALS: BP 106/81; PULSE 61; RESP 18; O2SAT 96
[2020-10-22] MEDS: Normal Saline - Diluent 50 ML VIAL IV (01:42)
[2020-10-22] MEDS: Omnipaque 350 MG/ML 100 ML BTL IJ (01:42)
[2020-10-22] MEDS: Normal Saline Flush 10 ML SYR IVP (01:43)
--- NOTE | 2020-10-22 01:46 | DI.VRAD_ITS ---
PROCEDURE INFORMATION: Exam: CT Angiography Chest With Contrast Exam date and time: 10/22/2020 12:42 AM Age: 59 years old Clinical indication: Cough and shortness of breath; Patient HX: Shortness of breath, patient could not. Stop coughing while he was laying down. TECHNIQUE: Imaging protocol: Computed tomographic angiography of the chest with intravenous contrast. 3D rendering (Not supervised by radiologist): MIP and/or 3D reconstructed images were created by the technologist. Radiation optimization: All CT scans at this facility use at least one of these dose optimization techniques: automated exposure control; mA and/or kV adjustment per patient size (includes targeted exams where dose is matched to clinical indication); or iterative reconstruction. Contrast material: OMNI-PAQUE 350; Contrast volume: 100 ml; Contrast route: INTRAVENOUS (IV); COMPARISON: CR XR PORTABLE CHEST AP 03/13/2020 8:49 PM FINDINGS: Pulmonary arteries: The pulmonary artery is suboptimally opacified and although no obvious PE is identified, the study is considered nondiagnostic Aorta: Unremarkable. No aortic aneurysm. No aortic dissection. Lungs: Septal lines , peribronchial cuffing, and extensive ground-glass attenuation with bilateral small pleural effusions may reflect CHF. A superimposed infectious process not excluded in the correct clinical. Pleural space: Unremarkable. No pneumothorax. No pleural effusion. Heart: Unremarkable. No cardiomegaly. No pericardial effusion. Lymph nodes: Small nonspecific mediastinal lymph nodes are present. Bones/joints: Unremarkable. No acute fracture. Soft tissues: Unremarkable. IMPRESSION: Septal lines , peribronchial cuffing, and extensive ground-glass attenuation with bilateral small pleural effusions may reflect CHF. A superimposed infectious process not excluded in the correct clinical. Dictated and Authenticated by: Maico Solorio MD. Ordering:ALEXANDR Alcantar MD
[2020-10-22 01:52] LABS: COVID-19 PCR Negative (Negative); Influenza A PCR Negative (Negative); Influenza B PCR Negative (Negative); Procalcitonin < 0.1 ng/mL; RSV PCR Negative (Negative)
[2020-10-22] MEDS: Furosemide 20 MG TAB PO (02:04)
[2020-10-22] MEDS: levoFLOXacin 500 MG, levoFLOXacin 250 MG 750 MG PO (02:04)
[2020-10-22 02:39] VITALS: BP 110/60; PULSE 68; RESP 17; O2SAT 94
--- NOTE | 2020-10-22 02:40 | NUR.NOTE ---
Discharge instructions reviewed with pt. Awaiting ride from [facility], not available until [id number]. Pt aware of plan. Provided with PO fluids and blankets. Call azar in reach.
--- NOTE | 2020-10-22 05:41 | NUR.NOTE ---
Pt dressed and out to vestibule in WC to await [facility]. Declined to wait in the WR, I'm too hot, i want to go outside. States is able to get self outside to [facility] when they arrive. A&Ox3. Encouraged to wave for assistance. Pt observed to get out of wheelchair and ambulate outside shortly after RN assisted him out to vestibule.
== END 2020-10-22 05:35 | disposition home or self-care (01) ==
PROVIDERS: Emergency Provider Emergency Medicine; PCP Nurse Practitioner
DX: J90 Pleural effusion, not elsewhere classified (principal); J43.9 Emphysema, unspecified; F17.210 Nicotine dependence, cigarettes, uncomplicated; Z03.818 Encounter for observation for suspected exposure to other biological agents ruled out; I10 Essential (primary) hypertension
CPT/HCPCS: 36415; 71275; 80053; 82805; 84145; 87040; 87637; 93005; 94640; 96374; 99285; 83605; 83735; 83880; 84443; 84484; 85025; 85610; 85730; 93010; J2930; J3490; J7613

== ENCOUNTER 2021-09-12 10:27 | Outpatient (CLI) | payer MEDICAID, SELFPAY ==
--- NOTE | 2021-09-12 10:15 | RT.EKG_ITS ---
APPROVED REPORT Exam: Resting ECG Reason for Exam: chest pain Patient Location: O HR:65 bpm ECG Measurements Heart Rate 65 AXIS IA 199 P 38 QRSd 108 QRS -21 QT 432 T -14 QTc 448 Conclusion Sinus rhythm...normal P axis, V-rate 60- 99 Inferior infarct, age indeterminate...Q>35mS, T neg, II III aVF
== END 2021-09-12 10:28 | disposition home or self-care (01) ==
LOC: DI.CM 10:29
PROVIDERS: PCP Nurse Practitioner; Visit Provider Nurse Practitioner
DX: R07.9 Chest pain, unspecified (principal)
CPT/HCPCS: 93010

== ENCOUNTER 2021-09-12 15:42 | Emergency (ER) | payer MEDICAID, SELFPAY ==
[2021-09-12] VITALS (27 sets, daily range): BP systolic 96–103; BP diastolic 58–72; PULSE 53–72; RESP 11–26; TEMP 36.2; O2SAT 92–97
--- NOTE | 2021-09-12 15:30 | RT.EKG_ITS ---
APPROVED REPORT Exam: Resting ECG Reason for Exam: chest pain Patient Location: E HR:68 bpm ECG Measurements Heart Rate 68 AXIS NJ 191 P 53 QRSd 92 QRS -10 QT 416 T 2 QTc 441 Conclusion Sinus rhythm...normal P axis, V-rate 60- 99 Inferior infarct, old...Q >35mS, II III aVF. Sinus. No STEMI. I have reviewed and interpreted ECG and agree with software generated interpretation.
[2021-09-12 16:29] LABS: Abs Immature Grans 0.03 10^3/uL (0.0-0.06); Absolute Basophil Count 0.07 10^3/uL (0.0-0.2); Absolute Eosinophil Count 0.12 10^3/uL (0.0-0.7); Absolute Lymphocyte Count 2.48 10^3/uL (1.2-3.4); Basophils % 0.7; Eosinophils % 1.3; HCT 50.7 % (40.0-50.0); HGB 16.7 g/dL (13.5-17.5); Immature Grans % 0.3; Lymphocytes % 26.1; MCH 30.6 pg (27.0-33.0); MCHC 32.9 % (32.0-36.0); Monocytes % 7.4; Neutrophils % 64.2; Nucleated RBC 0 %; Platelet Count 208 10^3/uL (130-400); RBC 5.45 10^6/uL (4.36-5.78); RDW-SD 43.8 fL
--- NOTE | 2021-09-12 16:30 | DI.RAD_ITS ---
Exam(s) XR PORTABLE CHEST AP EXAM: XR PORTABLE CHEST AP CLINICAL HISTORY: PUI, Chest pain TECHNIQUE: 2D digital imaging was performed. COMPARISON: CR,XR XR PORTABLE CHEST AP from 03/13/2020 FINDINGS: LUNGS: Leads overlie the chest. There is an azygos lobe, normal variant. No infiltrate, effusion or pulmonary edema is seen. HEART: Normal size. Coronary artery stent.. MEDIASTINUM: Normal. BONES: Unremarkable. IMPRESSION: No acute pulmonary findings. DATA REPOSITORY: RADIATION DOSE DELIVERED:
--- NOTE | 2021-09-12 16:42 | ED.GENADUL_ITS ---
Discharge Plan Disposition Patient Disposition: AGAINST MEDICAL ADVICE Condition: Stable Discharge Details Clinical Impression: Chest pain Primary Care Provider: Gissell Thompsno ED Provider: oJsephine Gunn Home Meds and New Rx's Prescriptions: No Action aspirin 81 mg tablet,chewable 81 mg PO DAILY Qty: 90 RF: 4 fluticasone propionate [Flonase Allergy Relief] 50 mcg/actuation spray,suspension 2 spray intranasal DAILY Qty: 16 RF: 11 rosuvastatin [Crestor] 40 mg tablet 40 mg PO DAILY RF: 0 tamsulosin 0.4 mg capsule 0.4 mg PO DAILY RF: 0 terbinafine HCl 250 mg tablet 250 mg PO DAILY RF: 0 cyanocobalamin (vitamin B-12) 1,000 mcg tablet 1,000 mcg PO DAILY Qty: 180 RF: 1 clopidogrel [Plavix] 75 mg tablet 75 mg PO DAILY Qty: 90 RF: 4 bisoprolol fumarate 5 mg tablet 5 mg PO DAILY Qty: 90 RF: 4 nitroglycerin 0.4 mg tablet, sublingual 0.4 mg Buccal ONCE Qty: 30 RF: 3 gabapentin 600 mg tablet 600 mg PO DAILY Qty: 90 RF: 3 ipratropium bromide 0.02 % Solution 2.5 ml INHALATION QID PRNRF: 0 Discharge Instructions Instructions: Chest Pain (ED) Additional Instructions: Please continue to take your normal medications. Please follow-up with cardiology and or go straight to [facility] as discussed. This time you are opting to leave AGAINST MEDICAL ADVICE. Your initial troponin was within normal limits and EKG also within normal limits. I do recommend that you stay for additional work-up. Follow up with primary care provider in 3-5 days. Return to ED sooner if any worsening or concerns. Increase oral fluids. Referrals: Nereyda Awad MD [ [facility] STAFF PHYSICIAN] - Gissell Thompson NP [Primary Care Provider] - Medical Decision Making 60-year-old male presents to the ER with chief complaint of left-sided chest pain which radiates into his left shoulder which began approximately 10 days ago. Patient reports constant pain for the last week. He did take 1 sublingual nitro approximately 50 minutes prior to arrival. He does have a past medical history of coronary artery disease, myopathy, COPD, he reports that he has had an WI in the past with stents placed. She is not vaccinated. He does have a dry cough which he reports is at his baseline. He denies any fever. He does endorse some nausea vomiting 2 days ago. No diarrhea. On initial exam he is reporting pain which radiates up into the left side of his neck. He does take 181 mg aspirin daily and clopidogrel 75 mg which he did take this morning. At this time cardiac work-up ordered including serial troponins, chest x-ray, Covid testing, nitroglycerin sublingual x1. This initially 324 mg aspirin was ordered which was canceled due to patient taking 81 mg aspirin and clopidogrel. TECHNIQUE: Imaging protocol: XR of the chest. Views: 1 view. COMPARISON: CR XR PORTABLE CHEST AP 03/13/2020 8:49 PM FINDINGS: Lungs: Unremarkable. No consolidation. Pleural spaces: Unremarkable. No pleural effusion. No pneumothorax. Heart/Mediastinum: Unremarkable. No cardiomegaly. Bones/joints: Unremarkable. IMPRESSION: No acute findings. Thank you for allowing us to participate in the care of your patient. Dictated and Authenticated by: Antwon Grande MD Patient reevaluation. Instructed on plan of care regarding serial troponin which is due in approximately 25 minutes. Patient does not wish to wait for second troponin I did inform him of his first initial work-up being within normal limits. He reports the nitroglycerin relieved the pain somewhat. I do recommend waiting for the serial troponin which patient is declining at this time. Patient is wishing to be released from the ER AGAINST MEDICAL ADVICE. He is refusing to sign the AMA form. Patient requesting to leave AMA. The patient appears clinically sober and is not under the influence of any known substances. Discussed risks and benefits with patient. Patient verbalizes understanding of situation and the risks of leaving including worsening condition, developing disability, including but not limited to . Discussed results of labs and imaging, if they were performed and recommendations for further treatment and/or observation. The patient verbalizes understanding of the results discussed. . Patient is alert and oriented and has the capacity to make own decisions. HPI General Date/Time Provider Initiated Documentation: 09/12/21 16:15 . Limitations to Documentation: no limitations . Information obtained by: patient, RN notes reviewed and old records reviewed . HPI Narrative: 60-year-old male presents to the ER with chief complaint of left- sided chest pain which radiates into his left shoulder which began approximately 10 days ago. Patient reports constant pain for the last week. He did take 1 sublingual nitro approximately 50 minutes prior to arrival. He does have a past medical history of coronary artery disease, myopathy, COPD, he reports that he has had an WI in the past with stents placed. She is not vaccinated. He does have a dry cough which he reports is at his baseline. He denies any fever. He does endorse some nausea vomiting 2 days ago. No diarrhea. On initial exam he is reporting pain which radiates up into the left side of his neck. He does take 181 mg aspirin daily and clopidogrel 75 mg which he did take this morning. Related Data Home Medications Medication Instructions Recorded Confirmed aspirin 81 mg chewable tablet 81 mg PO DAILY #90 tab-cap 01/10/20 09/12/21 ipratropium bromide 2.5 ml INHALATION QID PRN 10/22/20 09/12/21 cyanocobalamin (vitamin B-12) 1,000 mcg PO DAILY #180 tab 11/23/20 09/12/21 1,000 mcg tablet rosuvastatin 40 mg tablet 40 mg PO DAILY tab-cap 03/05/21 09/12/21 bisoprolol fumarate 5 mg tablet 5 mg PO DAILY #90 tab-cap 05/28/21 09/12/21 clopidogrel 75 mg tablet 75 mg PO DAILY #90 tab-cap 05/28/21 09/12/21 nitroglycerin 0.4 mg sublingual 0.4 mg BUCCAL ONCE #30 tab-cap 05/28/21 09/12/21 tablet fluticasone propionate 50 2 spray INTRANASAL DAILY #16 g 07/04/21 09/12/21 mcg/actuation nasal spray,suspension gabapentin 600 mg tablet 600 mg PO DAILY #90 tab 07/24/21 09/12/21 tamsulosin 0.4 mg capsule 0.4 mg PO DAILY 09/03/21 09/12/21 terbinafine HCl 250 mg tablet 250 mg PO DAILY 09/03/21 09/12/21 Previous Rx's Medication Instructions Recorded aspirin 81 mg chewable tablet 81 mg PO DAILY #90 tab-cap 01/10/20 cyanocobalamin (vitamin B-12) 1,000 mcg PO DAILY #180 tab 11/23/20 1,000 mcg tablet bisoprolol fumarate 5 mg tablet 5 mg PO DAILY #90 tab-cap 05/28/21 clopidogrel 75 mg tablet 75 mg PO DAILY #90 tab-cap 05/28/21 nitroglycerin 0.4 mg sublingual 0.4 mg BUCCAL ONCE #30 tab-cap 05/28/21 tablet fluticasone propionate 50 2 spray INTRANASAL DAILY #16 g 07/04/21 mcg/actuation nasal spray,suspension gabapentin 600 mg tablet 600 mg PO DAILY #90 tab 07/24/21 Allergies Allergy/AdvReac Type Severity Reaction Status Date / Time cephalexin monohydrate Allergy Severe Swelling/Ed Verified 09/12/21 16:08 [From Keflex] aren Penicillins Allergy Severe Swelling/Ed Verified 09/12/21 16:08 aren bee stings Allergy Severe Swelling/Ed Uncoded 09/12/21 16:08 aren General Stated Complaint: Chest Pain WILLEM: 2 Review of Systems All systems reviewed & are unremarkable except as noted in HPI and below Cardiovascular Cardiovascular: Reports chest pain, Reports chest pain at rest, Reports chest pain with activity, Denies pedal edema and Reports radiating jaw, neck or arm pain PFSH Medical History Bilateral foot-drop 2020- Part of FND CAD (coronary artery disease) COPD (chronic obstructive pulmonary disease) History of ETOH abuse History of vertigo Hypercholesteremia Hypertension NSTEMI (non-ST elevated myocardial infarction) (~05/2019) GRAY (obstructive sleep apnea) does not use a device Post-WI pericarditis Pre-diabetes PUD (peptic ulcer disease) STEMI (ST elevation myocardial infarction) 06/05/19- F/U with Tobacco abuse 06/2021- 11/10 PPD Vitamin B 12 deficiency Surgical History History of colonoscopy (~04/2020) History of heart artery stent pt. unsure of how many stents he has but state he has lost count, states last stent was 2 years ago and was a steel one so you can't MRI me per pt. History of partial gastrectomy Previous back surgery L-spine infusion Family History Other Unobtainable family history due to orphan status Social History Smoking/Tobacco Use Status: Current every day Tobacco Type: cigarettes Smoking packs per day: 2 Smoking cigarettes per day: 40.0 Tobacco: How many years used: 48 Quit status: considering quitting Second Hand Exposure: Yes Counseling given: provider counseling Smoking risk assessment performed?: Yes Alcohol Intake: never Drug use: Rarely Substance use type: marijuana Details: Makes pot oil for food Caregiver/Support person: No Household members: none Housing: house Number of Children: 0 Do you need help understanding health information?: Never current occupation: [employer]; Disabled Pets and animals: Yes Sexually active: No Do you think of yourself as: straight/heterosexual Current gender identity: male What is your relationship status?: never How often do you talk on the phone with friends or family?: three or more times per week How often do you get together with friends or relatives?: once per week How often do you attend zoroastrianism or advent services?: decline to answer Do you belong to any clubs or organized social groups?: no Panel score (0-1 are the most socially isolated patients): 1 What type of physical activity do you participate in: none Duration: decline to answer Frequency: decline to answer Tala/Amish: No preference Special tala needs: No Seatbelt use: always Helmet use: No Drive intox or ride w/intox auto parts delivery driver: No Do you feel safe at home: Yes Do you feel safe in your relationship?: Yes Exam Narrative Exam Narrative: Constitutional: Alert and oriented x3. Appears stated age. Normal body habitus. Head: Normocephalic, no trauma. Eyes: Pupils PERRL, Red reflex noted, EOM's intact. Eyelids symmetrical without lesions, discharge, or swelling. ENT: Bilateral TM's WNL, External ear normal to inspection, no mastoid TTP, swelling, or erythema, Nasal turbinates WNL, no nasal discharge. Normal dentition, Posterior pharynx WNL, no exudate. Chest: RRR, Normal S1, S2, distal pulses intact. Resp: Lungs clear to auscultation bilaterally, no wheezes, rales, or rhonchi. Abdomen: Soft, non-distended, Normoactive bowel sounds all 4 quads. Musculoskeletal: Normal gait, 5/5 strength to all four extremities. Skin: No suspicious rashes or lesions. Capillary refill less than 2 sec. Neurologic: Cranial nerves II-XII intact. Alert and oriented x 3. Motor: No deficits noted. Sensory: Intact bilaterally all 4 extremities. Reflexes: DTR's intact bilaterally.. Hematologic/Lymphatic: No ecchymosis, no lymphadenopathy. Course Vital Signs Vital signs: Vital Signs Temperature 36.2 C L 09/12/21 16:02 Pulse 67 09/12/21 16:02 Respiratory Rate 18 09/12/21 16:02 Blood Pressure 103/72 09/12/21 16:02 Pulse Oximetry 97 09/12/21 16:02 Temperature 36.2 C L 09/12/21 16:02 Temperature Source Skin 09/12/21 16:02 Pulse 67 09/12/21 16:02 Respiratory Rate 18 09/12/21 16:02 Respiratory Effort Non-Labored 09/12/21 16:02 Blood Pressure 103/72 09/12/21 16:02 Pulse Oximetry 97 09/12/21 16:02 Oxygen Delivery Method Room Air 09/12/21 16:02 Oxygen Flow Rate 0 09/12/21 16:02 Pain Level 7 09/12/21 16:02 Lab/Test Results Lab/Test Results: Laboratory Tests Range/Units 09/12/21 16:00 WBC (4.4-10.8) 10^3/uL 9.50 RBC (4.36-5.78) 10^6/uL 5.45 Hgb (13.5-17.5) g/dL 16.7 Hct (40.0-50.0) % 50.7 H MCV (80-95) fL 93.0 MCH (27.0-33.0) pg 30.6 MCHC (32.0-36.0) % 32.9 RDW (11.8-14.1) % 13.0 Plt Count (130-400) 10^3/uL 208 MPV (8.0-11.0) fL 11.0 Immature Gran % 0.3 Neutrophils % 64.2 Lymphocytes % 26.1 Monocytes % 7.4 Eosinophils % 1.3 Basophils % 0.7 Nucleated RBC % % 0 Absolute Neutrophils (1.2-6.7) 10^3/uL 6.10 Absolute Lymphocytes (1.2-3.4) 10^3/uL 2.48 Absolute Monocytes (0.1-0.8) 10^3/uL 0.70 Absolute Eosinophils (0.0-0.7) 10^3/uL 0.12 Absolute Basophils (0.0-0.2) 10^3/uL 0.07
[2021-09-12 16:44] LABS: ALT 18 U/L (16-63); AST 16 U/L (15-37); Albumin 4.2 g/dL (3.4-5.0); Alkaline Phosphatase 114 U/L (46-116); Anion Gap 6.9 mmol/L (3-11); BUN 20 mg/dL (7-18); Bilirubin, Total 0.4 mg/dL (0.2-1.0); CO2 31.1 mmol/L (21.0-32.0); CREATININE 1.2 mg/dL (0.70-1.30); Calcium 9.1 mg/dL (8.5-10.1); Chloride 105 mmol/L (98-107); Glucose 89 mg/dL (74-106); Magnesium 2.4 mg/dL (1.8-2.4); Potassium 4.1 mmol/L (3.5-5.1); Sodium 143 mmol/L (136-145); Total Protein 8.2 g/dL (6.4-8.2)
[2021-09-12 16:45] LABS: Troponin I < 0.05 ng/mL (<0.06)
[2021-09-12] MEDS: Normal Saline 1,000 ML 30 ML IV (16:57)
[2021-09-12] MEDS: nitroGLYcerin 0.4 MG TAB SL (16:58)
[2021-09-12 17:10] LABS: Source Nasal/Nares
--- NOTE | 2021-09-12 17:51 | DI.VRAD_ITS ---
PROCEDURE INFORMATION: Exam: XR Chest Exam date and time: 09/12/2021 4:42 PM Age: 60 years old Clinical indication: Other: Chest pain TECHNIQUE: Imaging protocol: XR of the chest. Views: 1 view. COMPARISON: CR XR PORTABLE CHEST AP 03/13/2020 8:49 PM FINDINGS: Lungs: Unremarkable. No consolidation. Pleural spaces: Unremarkable. No pleural effusion. No pneumothorax. Heart/Mediastinum: Unremarkable. No cardiomegaly. Bones/joints: Unremarkable. IMPRESSION: No acute findings. Dictated and Authenticated by: Antwon Grande MD. Ordering:VIVI Burton MD
[2021-09-12 18:07] LABS: COVID-19 PCR Negative (Negative)
== END 2021-09-12 18:54 | disposition left against medical advice (07) ==
PROVIDERS: Emergency Provider Registered Nurse Emergency; PCP Nurse Practitioner
DX: R07.9 Chest pain, unspecified (principal); I25.10 Atherosclerotic heart disease of native coronary artery without angina pectoris; Z95.5 Presence of coronary angioplasty implant and graft; I25.2 Old myocardial infarction; Z53.29 Procedure and treatment not carried out because of patient's decision for other reasons; Z20.822 Contact with and (suspected) exposure to COVID-19; Z03.818 Encounter for observation for suspected exposure to other biological agents ruled out
CPT/HCPCS: 80053; 87635; 93005; 99285; 71045; 83735; 84484; 85025; 93010

== ENCOUNTER 2021-10-15 19:41 | Outpatient (REF) | payer MEDICAID, SELFPAY ==
[2021-10-17 14:06] LABS: COVID-19 RT-PCR UVMMC Result Negative (Negative)
== END 2021-10-15 19:42 | disposition home or self-care (01) ==
LOC: LBN 19:41
PROVIDERS: PCP Nurse Practitioner; Visit Provider Nurse Practitioner
DX: Z20.822 Contact with and (suspected) exposure to COVID-19 (principal)
CPT/HCPCS: U0003

== ENCOUNTER 2022-11-24 07:55 | Outpatient (CLI) | payer MEDICAID, SELFPAY ==
--- NOTE | 2022-11-24 07:45 | RT.EKG_ITS ---
APPROVED REPORT Exam: Resting ECG Reason for Exam: Chest pain Patient Location: O HR:68 bpm ECG Measurements Heart Rate 68 AXIS WI 193 P 43 QRSd 98 QRS 6 QT 409 T 18 QTc 436 Conclusion Sinus rhythm...normal P axis, V-rate 50- 99 Early transition
== END 2022-11-24 07:56 | disposition home or self-care (01) ==
LOC: DI.CM 07:56
PROVIDERS: PCP Nurse Practitioner Family; Visit Provider Nurse Practitioner Family
DX: J44.9 Chronic obstructive pulmonary disease, unspecified (principal)
CPT/HCPCS: 93010

== ENCOUNTER 2022-12-08 14:20 | Outpatient (CLI) | payer MEDICAID, SELFPAY ==
--- NOTE | 2022-12-08 14:15 | RT.EKG_ITS ---
APPROVED REPORT Exam: Resting ECG Reason for Exam: chest pain Patient Location: O HR:69 bpm ECG Measurements Heart Rate 69 AXIS PA 191 P 50 QRSd 103 QRS -8 QT 424 T -4 QTc 455 Conclusion Sinus rhythm...normal P axis, V-rate 50- 99 early transition...QRS area>0 in V2 Inferior infarct, old...Q >35mS, II III aVF
== END 2022-12-08 14:21 | disposition home or self-care (01) ==
LOC: DI.CM 14:21
PROVIDERS: PCP Nurse Practitioner Family; Visit Provider Nurse Practitioner Family
DX: J44.9 Chronic obstructive pulmonary disease, unspecified (principal); R94.31 Abnormal electrocardiogram [ECG] [EKG]; I25.2 Old myocardial infarction
CPT/HCPCS: 93010

== ENCOUNTER 2022-12-19 20:10 | Emergency (ER) | payer MEDICAID, SELFPAY ==
[2022-12-19] VITALS (48 sets, daily range): BP systolic 82–108; BP diastolic 51–74; PULSE 71–98; RESP 11–41; TEMP 36.5; O2SAT 98
--- NOTE | 2022-12-19 19:30 | RT.EKG_ITS ---
APPROVED REPORT Exam: Resting ECG Reason for Exam: chest pain Patient Location: E HR:85 bpm ECG Measurements Heart Rate 85 AXIS SC 180 P 51 QRSd 92 QRS 5 QT 385 T 13 QTc 459 Conclusion Sinus rhythm...normal P axis, V-rate 60- 99 Inferior infarct, old...Q >35mS, II III aVF
--- NOTE | 2022-12-19 20:00 | DI.CT_ITS ---
Exam(s) CT CHEST PE ABD PELVIS W EXAM: CT CHEST PE ABD PELVIS W CLINICAL HISTORY: chest pain, abdomen pain, n/v. TECHNIQUE: Imaging Protocol: Axial CT angiography was performed with multi-slice acquisition and m ulti-planar and/or 3D reconstructions. CONTRAST MATERIAL: Intravenous: Omnipaque 350 Contrast volume:100 ml Oral: None COMPARISON: CT CT CHEST PE CTA from 10/22/2020 FINDINGS: CHEST: PULMONARY ARTERIES: There are no intra-arterial filling defects to suggest the presence of acute pulm onary emboli. LUNGS: There is no evidence of pulmonary infarction.There is a small nodular density in the right upp er lobe measuring 4 x 2 millimeters which appears decreased in size from 10/22/2020. Previously pres ent pleural effusions are no longer seen. Mild benign-appearing increased markings in the dependent aspects of both lungs noted. Azygos accessory lobe on the right again noted. MEDIASTINUM: There is no hilar nor mediastinal adenopathy. Visualized thyroid unremarkable. CARDIAC: Heart size is normal. There is no pericardial effusion. There is no significant shift of t he interventricular septum.Caliber of the thoracic aorta is within normal limits. No evidence of dis section. OSSEOUS: No significant osseous lesions.. ABDOMEN: There is no ascites. LIVER: Mild hepatic steatosis. No discrete focal hepatic lesions. Multiple surgical clips are seen in the GE junction region. No masses nor varices evident at this level. GALLBLADDER/BILIARY: Mildly distended. No radiopaque calculi. CBD is not dilated. PANCREAS: No evidence of pancreatic mass nor dilatation of the pancreatic duct. SPLEEN: Spleen is not enlarged. There are no intrasplenic lesions. Splenic and portal veins are unger nt. ADRENALS: There are no significant adrenal masses. KIDNEYS:No cysts evident. No calculi nor hydronephrosis. No solid renal masses. ABDOMINAL AORTA: The inferior aspect of the abdominal aorta is atherosclerotic and enlarged. There i s enlargement of the lower abdominal aorta above the bifurcation to diameter of 2.8 cm at this level. Diameter of the abdominal aorta above this level is 2.2 cm. There is also circumferential thrombus at this level. Some atherosclerotic disease extends into the left common iliac artery but there peraza s not appear to be a critical stenosis nor aneurysm of the iliac arteries. LYMPH NODES: There is no retroperitoneal or para-aortic adenopathy. ABDOMINAL WALL/GI: There is evidence of previous anterior abdominal wall surgery with vertical fascia l sutures evident. No subcutaneous abnormality. No abnormal fluid collection. No anterior abdomina l wall hernia. No evidence of significant inguinal hernia. No bowel obstruction. PELVIS: LYMPH NODES: There is no intrapelvic nor inguinal adenopathy. GI: No evidence of appendicitis.No evidence of sigmoid diverticulitis. URINARY BLADDER: No calculi nor masses evident REPRODUCTIVE: Mild prostate enlargement. OSSEOUS: Multilevel L4-S1 fusion surgery in the lower lumbar spine. Donor surgical defect in the rig ht iliac bone. There are bilateral intrapedicular screws at L 4 and S1 levels. IMPRESSION: 1. No evidence of acute pulmonary emboli nor pulmonary infarction. No pleural effusions. No evidenc e of aortic dissection. 2. Small 4 millimeter probable benign right upper lobe nodule, given that it has decreased in size fr om prior CT scan of October 2020. No additional lung nodules, intrathoracic adenopathy, nor pleural effusions. 3. There is an infrarenal abdominal aortic aneurysm at the lower most aspect of the abdominal aorta w hich exhibits maximum diameter of 2.8 cm. This is at and below the level of the inferior mesenteric artery takeoff point. Some atherosclerotic disease also evident in the common iliac arteries but no aneurysmal dilatation of the iliac arteries evident. 4. Previous abdominal surgery. No evidence of bowel obstruction, free air, nor abscess. No ascites. 5. Fusion surgery in the lower lumbar spine with L4-S1 fusion hardware. RADIATION DOSE DELIVERED: 1,588.52mGy.cm Total DLP DATA REPOSITORY: All CT scans at this facility are submitted to the National Radiology Data Registry (NRDR) Dose Index Registry (DIR) with the [employer] (A[employer]). RADIATION OPTIMIZATION: All CT scans at this facility use at least one of these dose optimization te chniques: automated exposure control; mA and/or kV adjustment per patient size (includes targeted exa ms where dose is matched to clinical indication); or iterative reconstruction.
[2022-12-19 20:12] LABS: Abs Immature Grans 0.04 10^3/uL (0.0-0.06); Absolute Basophil Count 0.05 10^3/uL (0.0-0.2); Absolute Eosinophil Count 0.14 10^3/uL (0.0-0.7); Absolute Monocyte Count 0.73 10^3/uL (0.1-0.8); Absolute Neutrophil Count 7.87 10^3/uL (1.2-6.7); Basophils % 0.4; Eosinophils % 1.2; HCT 50.3 % (40.0-50.0); HGB 16.5 g/dL (13.5-17.5); Immature Grans % 0.4; Lymphocytes % 21.7; MCH 30.4 pg (27.0-33.0); MCHC 32.8 % (32.0-36.0); MCV 93 fL (80-95); MPV 11.3 fL (8.0-11.0); Monocytes % 6.5; Neutrophils % 69.8; Platelet Count 214 10^3/uL (130-400); RBC 5.43 10^6/uL (4.36-5.78); RDW 12.8 % (11.8-14.1); RDW-SD 43.3 fL; WBC 11.27 10^3/uL (4.4-10.8)
[2022-12-19 20:13] LABS: BE (Venous) -9 mmol/L (-2-3); HCO3 (Venous) 17 mmol/L (23-28); O2 Sat (Venous) 73 %; TCO2 (Venous) 15 mmol/L (24-29); pCO2 (Venous) 32 mmHg (41-51); pH (Venous) 7.33 (7.31-7.41); pO2 (Venous) 38 mmHg
[2022-12-19 20:14] LABS: Absolute Lymphocyte Count 2.45 10^3/uL (1.2-3.4)
--- NOTE | 2022-12-19 20:15 | W.ED.GENAD ---
Discharge Plan Disposition Patient Disposition: Home Condition: Stable Discharge Details Clinical Impression: Diarrhea, Hypomagnesemia, Hypokalemia, Hypocalcemia, Dyspnea Primary Care Provider: Florence Morton ED Provider: Ortiz Pierce Home Meds and New Rx's Prescriptions: New prednisone 20 mg tablet 60 mg PO DAILY 4 Days Qty: 12 0RF Continued diclofenac sodium [Voltaren Arthritis Pain] 1 % gel 4 g topical QID Qty: 100 0RF Rx Instructions: apply to single knee, ankle, foot; for foot includes sole/toes/top of foot nitroglycerin 0.4 mg tablet, sublingual 0.4 mg Buccal Q5M PRN (Reason: chest pain) Qty: 30 3RF Rx Instructions: repeat X3 prn; call if c/p persists aspirin 81 mg tablet,chewable 81 mg PO DAILY Qty: 90 4RF bisoprolol fumarate 5 mg tablet 5 mg PO DAILY Qty: 90 4RF clopidogrel [Plavix] 75 mg tablet 75 mg PO DAILY Qty: 90 4RF cyanocobalamin (vitamin B-12) 1,000 mcg tablet 1,000 mcg PO DAILY Qty: 180 1RF fluticasone propionate [Flonase Allergy Relief] 50 mcg/actuation spray,suspension 2 spray intranasal DAILY Qty: 16 11RF Rx Instructions: administer into each nostril pregabalin 50 mg capsule 50 mg PO BID Qty: 180 3RF rosuvastatin [Crestor] 40 mg tablet 40 mg PO DAILY Qty: 90 3RF tamsulosin 0.4 mg capsule 0.4 mg PO DAILY Qty: 90 4RF isosorbide mononitrate 30 mg tablet extended release 24 hr 30 mg PO QAM Qty: 30 1RF nicotine 21-14-7 mg/24 hr patch, TD daily, sequential See Rx Instructions transdermal .COMPLEX Qty: 56 0RF Rx Instructions: apply 1-21 mg NICOTINE PATCH daily for 28 days; follow with 1-14 mg PATCH daily for 14 days, then 1-7mg PATCH daily for 14 days transdermal Discharge Instructions Instructions: Hypokalemia (ED), Hypocalcemia (ED), Hypomagnesemia (ED) Additional Instructions: follow up with your primary care provider within one week if you feel more ill, have worsening trouble breathing or pain return to the emergency department Medical Decision Making 62 yo male who has a hx of HFrEF, htn, hld, copd and continued smoker, cad with multiple prior LA's and stents most recently the last week of November in the prior stent of his rca, who comes in with ems with diarrhea and also intermittent chest pain and abdominal pain. No fevers, no chills, no vomiting. HE states he always has intermittent chest pain and this is unchanged since his most recent stent. Denies pain with exertion, diaphoresis. He has some shortness of breath. He states 5 days ago he started to have diarrhea and called ems tonight for this. He arrives hemodynamically stable appears anxious on exam speaking in full sentences. He has wheezing in both lung schaeffer at the bases, no jvd, mild tenderness in the llq, no leg swelling or calf tenderness. Given his history will treat for copd with duoneb and steroids, and given his anxiety give a dose of ativan. Will also obtain ekg, troponin, cbc, cmp, lipase, and obtain cta of the chest for pe and also ct abdomen/pelvis to evaluate for diverticulitis given the diarrhea and llq tenderness. labs show low mag and k and calcium, corrected for low albumin his calcium level is 7.2. Will order repletion of all 3 electrolytes, labs otherwise unremarkable. HE feels significantly better, stable vitals, will continue to monitor, imaging results pending imaging without significant findings, does have evidence of likely gastroenteritis. He is sleeping on reassessment and awakens easily, has no symtoms now and feels well, will obtain delta troponin, and recheck K,Ca and mag levels. electrolyte levels improved, he is asymptomatic now without complaints. HE is stable for d/c, advised to f/u with his pcp, return precautions given. Suspect primary cause of his symptoms are viral gastroenteritis and also copd. Differential Diagnosis Differential Diagnosis: copd, nstemi, pe, diverticulitis Medical Records Medical records reviewed: Yes I reviewed the patient's medical records. Imaging Data Radiologic Study: Attestation: I personally reviewed and interpreted this imaging study as follows: Imaging: CT Scan Radiologist's impression: IMPRESSION: 1. No acute vascular abnormalities. No evidence of aortic dissection. 2. Moderate coronary artery calcification. 3. Moderate emphysematous changes in the pulmonary apices, right greater than left. 4. Question mild changes of gastroenteritis. No evidence of bowel obstruction, perforation, or abscess. 5. There are few distal colonic diverticula with no evidence of diverticulitis. 6. Additional nonemergent findings detailed above. Lab Data Lab results reviewed: Yes I reviewed the patient's lab results. ECG Data Attestation: I personally reviewed and interpreted this ECG (s) as follows: Prior ECG tracings: available for review Interpretation: sinus rhythm, rate of 85, pr 180, no stemi HPI General Mode of arrival: EMS. Date/Time Provider Initiated Documentation: 12/19/22 20:12. Limitations to Documentation: no limitations. Information obtained by: patient. History of Present Illness 62 year old M presents to the emergency department with the chief complaint of diarrhea, described as moderate, Patient started experiencing this day(s) (5) and it has been intermittent. No relieving factors improve symptom(s), No exacerbating factors reported . Patient notes chest pain and shortness of breath; denies nausea/vomiting. Patient did receive the following treatments prior to arrival, none Related Data Home Medications Medication Instructions Recorded Confirmed diclofenac sodium 1 % topical gel 4 g topical QID #100 grams 04/01/22 12/19/22 (Voltaren Arthritis Pain) nitroglycerin 0.4 mg sublingual 0.4 mg buccal Q5M PRN chest pain 09/03/22 12/19/22 tablet #30 tab-caps aspirin 81 mg chewable tablet 81 mg PO DAILY #90 tab-caps 11/24/22 12/19/22 bisoprolol fumarate 5 mg tablet 5 mg PO DAILY #90 tab-caps 11/24/22 12/19/22 clopidogrel 75 mg tablet (Plavix) 75 mg PO DAILY #90 tab-caps 11/24/22 12/19/22 cyanocobalamin (vitamin B-12) 1,000 mcg PO DAILY #180 tabs 11/24/22 12/19/22 1,000 mcg tablet fluticasone propionate 50 2 spray intranasal DAILY #16 grams 11/24/22 12/19/22 mcg/actuation nasal spray,suspension (Flonase Allergy Relief) pregabalin 50 mg capsule 50 mg PO BID #180 caps 11/24/22 12/19/22 rosuvastatin 40 mg tablet (Crestor) 40 mg PO DAILY #90 tab-caps 11/24/22 12/19/22 tamsulosin 0.4 mg capsule 0.4 mg PO DAILY #90 caps 11/24/22 12/19/22 nicotine See Rx Instructions transdermal 12/05/22 12/19/22 21mg/24hr-14mg/24hr-7mg/24hr daily .COMPLEX #56 patches transderm patches,sequentl isosorbide mononitrate 30 mg 30 mg PO QAM #30 tabs 12/08/22 12/19/22 tablet,extended release 24 hr prednisone 20 mg tablet 60 mg PO DAILY 4 days #12 tabs 12/19/22 Previous Rx's Medication Instructions Recorded diclofenac sodium 1 % topical gel 4 g topical QID #100 grams 04/01/22 (Voltaren Arthritis Pain) nitroglycerin 0.4 mg sublingual 0.4 mg buccal Q5M PRN chest pain 09/03/22 tablet #30 tab-caps aspirin 81 mg chewable tablet 81 mg PO DAILY #90 tab-caps 11/24/22 bisoprolol fumarate 5 mg tablet 5 mg PO DAILY #90 tab-caps 11/24/22 clopidogrel 75 mg tablet (Plavix) 75 mg PO DAILY #90 tab-caps 11/24/22 cyanocobalamin (vitamin B-12) 1,000 mcg PO DAILY #180 tabs 11/24/22 1,000 mcg tablet fluticasone propionate 50 2 spray intranasal DAILY #16 grams 11/24/22 mcg/actuation nasal spray,suspension (Flonase Allergy Relief) pregabalin 50 mg capsule 50 mg PO BID #180 caps 11/24/22 rosuvastatin 40 mg tablet (Crestor) 40 mg PO DAILY #90 tab-caps 11/24/22 tamsulosin 0.4 mg capsule 0.4 mg PO DAILY #90 caps 11/24/22 nicotine See Rx Instructions transdermal 12/05/22 21mg/24hr-14mg/24hr-7mg/24hr daily .COMPLEX #56 patches transderm patches,sequentl isosorbide mononitrate 30 mg 30 mg PO QAM #30 tabs 12/08/22 tablet,extended release 24 hr prednisone 20 mg tablet 60 mg PO DAILY 4 days #12 tabs 12/19/22 Allergies Allergy/AdvReac Type Severity Reaction Status Date / Time cephalexin monohydrate Allergy Severe Swelling/Ed Verified 12/19/22 19:59 [From Keflex] aren Penicillins Allergy Severe Swelling/Ed Verified 12/19/22 19:59 aren bee stings Allergy Severe Swelling/Ed Uncoded 12/19/22 19:59 aren General Stated Complaint: Chest Pain WILLEM: 2 Review of Systems All systems reviewed & are unremarkable except as noted in HPI and below Constitutional Constitutional: Denies chills, Denies fever(s) and Denies weakness Respiratory Respiratory: Denies cough Gastrointestinal Gastrointestinal: Denies nausea and Denies vomiting Genitourinary Genitourinary: Denies dysuria Musculoskeletal Musculoskeletal: Denies joint swelling Integumentary/Breasts Skin/Breast: Denies rash Neurologic Neurologic: Denies weakness PFSH All Active Problems (Updated 12/19/22 @ 22:39 by Ortiz Pierce MD) Diarrhea (Acute) Hypomagnesemia (Acute) Hypokalemia (Acute) Hypocalcemia (Acute) Dyspnea (Acute) Tinnitus of both ears (Acute) Chronic Skin lesion (Acute) To top of scalp CAD (coronary artery disease) (Chronic) Tobacco abuse (Acute) 06/2021- 11/10 PPD Hypercholesteremia (Acute) GRAY (obstructive sleep apnea) (Chronic) does not use a device Vitamin B 12 deficiency (Acute) PUD (peptic ulcer disease) (Chronic) Peripheral neuropathy (Acute) 2020- part of his FND History of heart artery stent (Chronic) pt. unsure of how many stents he has but state he has lost count, states last stent was 2 years ago and was a steel one so you can't MRI me per pt. Previous back surgery (Chronic) L-spine infusion Hypertension (Chronic) Pre-diabetes (Acute) Bilateral foot-drop (Acute) 2020- Part of FND Chronic pain (Chronic) 04/11/20- seen in pain clinic- given gabapentin. High risk for opioid use due to etoh history Tubular adenoma of colon (Acute) Incidental lung nodule, greater than or equal to 8mm (Acute) 10/2020- 9mm solid- referred to [facility] [place] IMPRESSION: 1. Opacification of pulmonary arteries is suboptimal and this study is nondiagnostic for ruling out pulmonary emboli. There is, however, no evidence of obvious pulmonary infarction.. Dysphagia (Acute) Left shoulder pain (Acute) Nocturia (Acute) Functional neurological symptom disorder with weakness or paralysis (Acute) Medical History COPD (chronic obstructive pulmonary disease) History of ETOH abuse History of vertigo NSTEMI (non-ST elevated myocardial infarction) (~05/2019) Post-LA pericarditis STEMI (ST elevation myocardial infarction) 06/05/19- F/U with Surgical History History of colonoscopy (~04/2020) History of partial gastrectomy Family History Other Unobtainable family history due to orphan status Social History Smoking/Tobacco Use Status: Current every day Tobacco Type: cigarettes Smoking packs per day: 2 Smoking cigarettes per day: 40.0 Tobacco: How many years used: 48 Quit status: considering quitting Second Hand Exposure: Yes Counseling given: provider counseling Smoking risk assessment performed?: Yes Alcohol Intake: never Drug use: Rarely Substance use type: marijuana Details: Makes pot oil for food Caregiver/Support person: No Household members: none Housing: house Number of Children: 0 Do you need help understanding health information?: Never current occupation: [employer]; Disabled Pets and animals: Yes Sexually active: No Do you think of yourself as: straight/heterosexual Current gender identity: male What is your relationship status?: never How often do you talk on the phone with friends or family?: three or more times per week How often do you get together with friends or relatives?: once per week How often do you attend scientologist or anglican services?: decline to answer Do you belong to any clubs or organized social groups?: no Panel score (0-1 are the most socially isolated patients): 1 What type of physical activity do you participate in: none Duration: decline to answer Frequency: decline to answer Tala/Jainism: No preference Special tala needs: No Seatbelt use: always Helmet use: No Drive intox or ride w/intox route delivery driver: No Do you feel safe at home: Yes Do you feel safe in your relationship?: Yes Exam Const General: anxious Orientation: alert HENMT Head: normal to inspection Ears: external ears normal General nose exam: external nose normal Mouth: moist mucous membranes Eyes General: appearance normal, both eyes and all related structures Neck Neck: normal visual inspection Chest Chest: normal inspection of the chest Resp Effort & Inspection: able to speak in complete sentences Auscultation: wheezes Cardio Rate: regular rate Heart Sounds: no murmurs GI Palpation: soft and tender Skin General skin exam: no rashes or lesions noted Neuro General: patient alert and patient oriented x3 Extrem General: normal to inspection Psych Mental Status: mental status grossly normal Course Vital Signs Vital signs: Vital Signs Temperature 36.5 C 12/19/22 19:40 Pulse 83 12/19/22 19:40 Respiratory Rate 27 H 12/19/22 19:40 Blood Pressure 108/68 12/19/22 19:40 Pulse Oximetry 98 12/19/22 19:40 Temperature 36.5 C 12/19/22 19:40 Temperature Source Temporal Artery Scan 12/19/22 19:40 Pulse 83 12/19/22 19:40 Respiratory Rate 34 H 12/19/22 20:00 Respiratory Effort Short of Breath 12/19/22 20:00 Respiratory Depth Normal 12/19/22 20:00 Respiratory Pattern Normal 12/19/22 20:00 Blood Pressure 108/68 12/19/22 19:40 Blood Pressure Position Supine 12/19/22 19:40 Pulse Oximetry 98 12/19/22 19:40 Oxygen Delivery Method Room Air 12/19/22 19:40 Oxygen Flow Rate 0 12/19/22 19:40 Pain Level 4 12/19/22 20:00 Lab/Test Results Lab/Test Results: Laboratory Tests Range/Units 12/19/22 12/19/22 20:00 20:00 WBC (4.4-10.8) 10^3/uL 11.27 H RBC (4.36-5.78) 10^6/uL 5.43 Hgb (13.5-17.5) g/dL 16.5 Hct (40.0-50.0) % 50.3 H MCV (80-95) fL 93 MCH (27.0-33.0) pg 30.4 MCHC (32.0-36.0) % 32.8 RDW (11.8-14.1) % 12.8 Plt Count (130-400) 10^3/uL 214 MPV (8.0-11.0) fL 11.3 H Immature Gran % 0.4 Neutrophils % 69.8 Lymphocytes % 21.7 Monocytes % 6.5 Eosinophils % 1.2 Basophils % 0.4 Nucleated RBC % (0.0-0.3) % 0.0 Absolute Neutrophils (1.2-6.7) 10^3/uL 7.87 H Absolute Lymphocytes (1.2-3.4) 10^3/uL 2.45 Absolute Monocytes (0.1-0.8) 10^3/uL 0.73 Absolute Eosinophils (0.0-0.7) 10^3/uL 0.14 Absolute Basophils (0.0-0.2) 10^3/uL 0.05 VBG pH (7.31-7.41) 7.33 VBG pCO2 (41-51) mmHg 32 L VBG pO2 mmHg 38 VBG HCO3 (23-28) mmol/L 17 L VBG Total CO2 (24-29) mmol/L 15 L VBG O2 Saturation % 73 VBG Base Excess (-2-3) mmol/L -9 L POCUS Exam (ED) Limited Cardiac Exam DATE OF EXAM: 12/19/22 TIME OF EXAM: 20:18 PROVIDER THAT PERFORMED THE STUDY: Ortiz Pierce IS THIS A REPEAT EXAM DURING THIS ENCOUNTER: no REASON FOR EXAM: Chest pain VISUALIZED STRUCTURES: Left ventricle and Right ventricle VIEW OBTAINED: Subxiphoid PERTINENT FINDINGS/IMPRESSION: No pericardial effusion Exam complete
[2022-12-19] MEDS: methylPREDNISolone SUCC 125 MG VIAL IVP (20:23)
[2022-12-19] MEDS: LORazepam 2 MG/ML VIAL 1 MG IVP (20:23)
[2022-12-19] MEDS: Albuterol/Ipratropium 3 ML UPD VIAL UPD (20:24)
[2022-12-19 20:25] LABS: Bilirubin Negative (Negative); Blood Negative (Negative); Clarity Clear (Clear); Glucose Negative (Negative); Ketones Negative (Negative); Leukocyte Esterase Negative (Negative); Nitrite Negative (Negative); Specific Gravity >= 1.030 (1.005-1.025); Urobilinogen 0.2 EU/dL (Up TO 0.2); pH 5.5 (5-8)
[2022-12-19 20:27] LABS: INR 1.1 (0.9-1.1); PTT Activated 27.3 sec (21.5-31.9)
[2022-12-19 20:29] LABS: ETHANOL BLOOD < 3.0 mg/dL (<10); Lipase 27 U/L (16-77)
[2022-12-19 20:31] LABS: Bacteria Few HPF (Negative); C & S Indicated? No; Casts Negative LPF (Negative); Crystals Negative HPF (Negative); Epithelial Cells Few HPF (Negative); Mucus Heavy (Negative); RBC 0-2 HPF (0-2); WBC 0-2 HPF (0-5)
[2022-12-19 20:38] LABS: ALT 32 U/L (16-63); AST 24 U/L (15-37); Albumin 2.8 g/dL (3.4-5.0); Alkaline Phosphatase 81 U/L (46-116); Anion Gap 12.8 mmol/L (3-11); BUN 14 mg/dL (7-18); Bilirubin, Total 0.3 mg/dL (0.2-1.0); CO2 18.2 mmol/L (21.0-32.0); CREATININE 0.7 mg/dL (0.70-1.30); Chloride 115 mmol/L (98-107); Estimated GFR 103.53 (mL/min/1.73m2); Glucose 107 mg/dL (74-106); Magnesium 1.3 mg/dL (1.8-2.4); NT-proBNP 63 pg/mL (<300); Sodium 146 mmol/L (136-145); Total Protein 5.3 g/dL (6.4-8.2); Troponin I < 50 ng/L (<or=60)
[2022-12-19 20:39] LABS: Calcium 6.2 mg/dL (8.5-10.1)
[2022-12-19 20:40] LABS: Potassium 2.7 mmol/L (3.5-5.1)
[2022-12-19 20:44] LABS: COVID-19 PCR Negative (Negative); Influenza A PCR Negative (Negative); Influenza B PCR Negative (Negative); RSV PCR Negative (Negative)
[2022-12-19 20:45] LABS: Source Nasopharynx
[2022-12-19] MEDS: Potassium Chloride 20 MEQ TABCR 40 MEQ PO (20:50)
[2022-12-19] MEDS: Normal Saline - Diluent 50 ML VIAL IJ (21:04)
[2022-12-19] MEDS: Omnipaque 350 MG/ML 100 ML BTL IJ (21:06)
[2022-12-19] MEDS: Omnipaque 350 MG/ML 50 ML BTL IJ (21:07)
[2022-12-19] MEDS: Normal Saline Flush 10 ML SYR IVP (21:12)
[2022-12-19] MEDS: Calcium Gluconate 4.65 MEQ/10 ML VIAL 4.65 MG IVP (21:26)
[2022-12-19] MEDS: POTASSIUM CHLORIDE 10 MEQ/100 ML BAG 100 MEQ IVPB (21:26)
[2022-12-19] MEDS: MAGNESIUM SULFATE 2 GM/50 ML BAG IVPB (21:26)
--- NOTE | 2022-12-19 22:13 | DI.VRAD_ITS ---
PROCEDURE INFORMATION: Exam: CTA Chest With Contrast CTA Abdomen With Contrast Exam date and time: 12/19/2022 9:04 PM Age: 62 years old Clinical indication: Other: Cp; Abdominal pain; Flank; Upper; Patient HX: Nausea and vomiting; Abd pain/chest pain TECHNIQUE: Imaging protocol: Computed tomographic angiography of the chest with contrast. Computed tomographic angiography of the abdomen with contrast. 3D rendering (Not supervised by radiologist): MIP and/or 3D reconstructed images were created by the technologist. Radiation optimization: All CT scans at this facility use at least one of these dose optimization techniques: automated exposure control; mA and/or kV adjustment per patient size (includes targeted exams where dose is matched to clinical indication); or iterative reconstruction. Contrast material: OMNIPAQUE 350; Contrast volume: 125 ml; Contrast route: INTRAVENOUS (IV); COMPARISON: CT CHEST PE CTA 10/22/2020 1:18 AM FINDINGS: VASCULATURE: Pulmonary arteries: The pulmonary arteries enhance appropriately with no evidence of pulmonary embolism. Aorta: The thoracic aorta demonstrates moderate tortuosity with mild generalized ectasia but no evidence of reshma aneurysm or aortic dissection. No mediastinal hematoma. The abdominal aorta demonstrates mild calcific atherosclerosis and moderate distal soft plaque development without evidence of aneurysm, dissection, or stenosis. Celiac trunk and mesenteric arteries: The celiac artery and its major branch vessels are unremarkable. The SMA and its major branch vessels are unremarkable. Renal arteries: The primary right renal artery is normal. There are 2 smaller accessory right renal arteries arising distal to this which are also normal in appearance. The left renal artery is normal. Right iliac arteries: The right common iliac artery demonstrates mild-moderate calcific plaque but is otherwise unremarkable. The right external iliac artery is unremarkable. Left iliac arteries: The left common iliac artery demonstrates mild calcific atherosclerosis but is otherwise unremarkable. The left external iliac artery demonstrates mild tortuosity but is otherwise unremarkable. Thyroid: The visualized thyroid gland demonstrates no gross abnormality. CHEST: Lungs: No acute tracheobronchial abnormalities. Moderate right and mild left centrilobular emphysematous changes in the pulmonary apices. No gross pulmonary infiltrates or edema pattern. Mild atelectasis in the lung bases. No pulmonary mass lesions are identified. Normal variant azygos fissure incidentally noted in the right apex. Pleural spaces: No pleural effusion. No pneumothorax. Heart: Heart size normal. Moderate coronary artery calcification. No pericardial effusion. Mediastinal space: The esophagus is largely contracted but demonstrates no gross abnormality. Surgical clips noted near the GE junction. ABDOMEN AND PELVIS: Liver: Normal contour. No mass lesions. No intrahepatic biliary ductal dilatation. Gallbladder and bile ducts: Normal. No calcified stones. No ductal dilation. Pancreas: Mild pancreatic atrophy without acute abnormality. No pancreatic ductal dilatation. Spleen: Granulomatous calcifications in the spleen without acute splenic abnormality. Adrenal glands: Normal. No adrenal mass. Kidneys and ureters: No acute abnormalities. No hydronephrosis or hydroureter. No urinary tract stones are identified. Stomach and bowel: No acute gastric abnormalities. Prior antrectomy and gastrojejunostomy without gross anastomotic complication. Question mildly excessive fluid content in the mid and distal small bowel segments and proximal colon with equivocal slight increase in bowel wall enhancement. This is suspicious for mild gastroenteritis. No reshma bowel dilatation or transition point. No evidence of bowel obstruction, perforation, or abscess. There are few diverticula present in the distal colon without evidence of acute diverticulitis. Appendix: The appendix is normal in caliber and demonstrates no evidence of appendicitis. Intraperitoneal space: No free fluid or air. Urinary bladder: The urinary bladder is largely contracted without gross abnormality. Reproductive: Moderately enlarged prostate. Lymph nodes: No supraclavicular or axillary adenopathy. No mediastinal or hilar adenopathy. No intra-abdominal/intrapelvic adenopathy. Bones/joints: No acute osseous abnormalities. L4-S1 laminectomy and fusion without gross hardware complication. Grade 1 anterolisthesis L5-S1. Prior graft harvest site in the right posterosuperior iliac spine. Soft tissues: Chronic appearing surgical sutures in the epigastric anterior abdominal wall midline to left upper quadrant.Small fatty bilateral inguinal hernias with no asociated bowel herniation or strangulation. IMPRESSION: 1. No acute vascular abnormalities. No evidence of aortic dissection. 2. Moderate coronary artery calcification. 3. Moderate emphysematous changes in the pulmonary apices, right greater than left. 4. Question mild changes of gastroenteritis. No evidence of bowel obstruction, perforation, or abscess. 5. There are few distal colonic diverticula with no evidence of diverticulitis. 6. Additional nonemergent findings detailed above. Dictated and Authenticated by: Silvio Presley MD. Ordering:ALEXANDR Alcantar MD
[2022-12-19 23:33] LABS: ALT 44 U/L (16-63); AST 28 U/L (15-37); Albumin 3.6 g/dL (3.4-5.0); Alkaline Phosphatase 107 U/L (46-116); Anion Gap 7.2 mmol/L (3-11); BUN 16 mg/dL (7-18); Bilirubin, Total 0.4 mg/dL (0.2-1.0); CO2 23.8 mmol/L (21.0-32.0); Calcium 8.3 mg/dL (8.5-10.1); Chloride 107 mmol/L (98-107); Estimated GFR 84.57 (mL/min/1.73m2); Glucose 117 mg/dL (74-106); Magnesium 3.6 mg/dL (1.8-2.4); Potassium 4.4 mmol/L (3.5-5.1); Sodium 138 mmol/L (136-145); Total Protein 6.9 g/dL (6.4-8.2)
[2022-12-19 23:38] LABS: Troponin I < 50 ng/L (<or=60)
[2022-12-20 00:59] VITALS: BP 105/72; PULSE 83; RESP 21; TEMP 36.7; O2SAT 96
== END 2022-12-20 01:17 | disposition home or self-care (01) ==
PROVIDERS: Emergency Provider Emergency Medicine; PCP Nurse Practitioner Family
DX: E83.42 Hypomagnesemia (principal); R19.7 Diarrhea, unspecified; E87.6 Hypokalemia; E83.51 Hypocalcemia; R06.00 Dyspnea, unspecified; I11.0 Hypertensive heart disease with heart failure; I50.20 Unspecified systolic (congestive) heart failure; J44.9 Chronic obstructive pulmonary disease, unspecified; E78.5 Hyperlipidemia, unspecified; F17.210 Nicotine dependence, cigarettes, uncomplicated; I25.10 Atherosclerotic heart disease of native coronary artery without angina pectoris; I25.2 Old myocardial infarction; Z20.822 Contact with and (suspected) exposure to COVID-19; Z79.82 Long term (current) use of aspirin
CPT/HCPCS: 71275; 74177; 80053; 82805; 83690; 87637; 93005; 93308; 94640; 96365; 96366; 96368; 96375; 99285; 80320; 81003; 81015; 83735; 83880; 84484; 85025; 85610; 85730; 93010; J0610; J2060; J2930; J3480; J3490; J7620; Q9967

== ENCOUNTER 2022-12-25 21:16 | Outpatient (REF) | payer MEDICAID, SELFPAY ==
[2022-12-25 21:39] LABS: HCT 45.4 % (40.0-50.0); HGB 15.1 g/dL (13.5-17.5); MCH 30.9 pg (27.0-33.0); MCHC 33.3 % (32.0-36.0); MCV 93 fL (80-95); MPV 11.4 fL (8.0-11.0); Platelet Count 197 10^3/uL (130-400); RBC 4.89 10^6/uL (4.36-5.78); RDW 12.6 % (11.8-14.1); RDW-SD 42.8 fL; WBC 12.65 10^3/uL (4.4-10.8)
[2022-12-25 22:05] LABS: ALT 106 U/L (16-63); AST 39 U/L (15-37); Albumin 3.5 g/dL (3.4-5.0); Alkaline Phosphatase 111 U/L (46-116); Anion Gap 5.2 mmol/L (3-11); BUN 13 mg/dL (7-18); Bilirubin, Total 0.2 mg/dL (0.2-1.0); CO2 33.8 mmol/L (21.0-32.0); CREATININE 0.9 mg/dL (0.70-1.30); Calcium 8.2 mg/dL (8.5-10.1); Chloride 105 mmol/L (98-107); Estimated GFR 95.97 (mL/min/1.73m2); Glucose 139 mg/dL (74-106); Potassium 3.7 mmol/L (3.5-5.1); Sodium 144 mmol/L (136-145); Total Protein 6.1 g/dL (6.4-8.2)
[2022-12-26 21:19] LABS: PSA, Diagnostic 0.4 ng/mL (<=4.5)
== END 2022-12-25 21:17 | disposition home or self-care (01) ==
LOC: LBN 21:16
PROVIDERS: PCP Nurse Practitioner Family; Visit Provider Nurse Practitioner Family
DX: N13.8 Other obstructive and reflux uropathy (principal); N40.1 Benign prostatic hyperplasia with lower urinary tract symptoms
CPT/HCPCS: 80053; 85027; 84153

== ENCOUNTER 2023-05-15 20:01 | Emergency (ER) | payer MEDICAID, SELFPAY ==
[2023-05-15] VITALS (21 sets, daily range): BP systolic 103–122; BP diastolic 53–83; PULSE 71–85; RESP 14–43; TEMP 36.6; O2SAT 98
--- NOTE | 2023-05-15 20:15 | DI.CT_ITS ---
Exam(s) CT ABDOMEN PELVIS CTA EXAM: CT ABDOMEN PELVIS CTA CLINICAL HISTORY: GI bleed, likely upper. TECHNIQUE: Imaging Protocol: Axial CT angiography was performed with multi-slice acquisition and m ulti-planar and/or 3D reconstructions. CONTRAST MATERIAL: Intravenous: Omnipaque 350 Contrast volume 100 ml Oral: no COMPARISON: CT CT CHEST PE ABD PELVIS W from 12/19/2022 FINDINGS: Vascular Structures: Celiac [place]/SMA: No evidence of stenosis. Renal Arteries: No evidence of stenosis. There is a single renal artery perfusing each kidney. Aorta: Significant atherosclerotic plaque distally but no significant stenosis. No aneurysm. No diss ection. Pelvis: Iliac Arteries: No evidence of stenosis. No aneurysm. Common Femoral Arteries: No aneurysm. No evidence of stenosis. Soft Tissues: Lung bases:Right basilar scarring. Surgical clips at the GE junction. Liver: Normal density. No measurable mass. Gallbladder and biliary tract: No radiodense calculus or dilation. Pancreas: Normal density, no abnormal calcifications or inflammatory process. Spleen: Normal. Kidneys: Normal size, contour and axis. No radiodense stones or obstructive uropathy. No masses seen. Adrenal glands: No masses seen. Bladder: Symmetric distention, no gross wall thickening. Bowel: No obstruction or bowel wall thickening. Peritoneal cavity: No ascites, collection or mesenteric inflammatory response. Bones: Hardware in the lower lumbar spine. Lymph nodes: Within normal limits. IMPRESSION: Atherosclerotic changes of the distal abdominal aorta. No evidence of dissection. Branch vessels ap pear patent and without significant stenosis.. RADIATION DOSE DELIVERED: 779.1mGy.cm Total DLP DATA REPOSITORY: All CT scans at this facility are submitted to the National Radiology Data Registry (NRDR) Dose Index Registry (DIR) with the [employer] (ACR). RADIATION OPTIMIZATION: All CT scans at this facility use at least one of these dose optimization te chniques: automated exposure control; mA and/or kV adjustment per patient size (includes targeted exa ms where dose is matched to clinical indication); or iterative reconstruction.
[2023-05-15 20:40] LABS: Abs Immature Grans 0.06 10^3/uL (0.0-0.06); Absolute Basophil Count 0.06 10^3/uL (0.0-0.2); Absolute Eosinophil Count 0.15 10^3/uL (0.0-0.7); Absolute Lymphocyte Count 2.75 10^3/uL (1.2-3.4); Absolute Monocyte Count 0.75 10^3/uL (0.1-0.8); Absolute Neutrophil Count 7.75 10^3/uL (1.2-6.7); Basophils % 0.5; Eosinophils % 1.3; HCT 36.8 % (40.0-50.0); HGB 12.3 g/dL (13.5-17.5); Immature Grans % 0.5; Lymphocytes % 23.9; MCH 30.9 pg (27.0-33.0); MCHC 33.4 % (32.0-36.0); MCV 93 fL (80-95); MPV 10.6 fL (8.0-11.0); Monocytes % 6.5; Neutrophils % 67.3; Platelet Count 218 10^3/uL (130-400); RBC 3.98 10^6/uL (4.36-5.78); RDW 13.4 % (11.8-14.1); RDW-SD 45.1 fL; WBC 11.51 10^3/uL (4.4-10.8)
--- NOTE | 2023-05-15 20:40 | W.ED.GENAD ---
Discharge Plan Disposition Patient Disposition: Home Condition: Stable Discharge Details Clinical Impression: Acute upper GI bleed Primary Care Provider: Florence Morton ED Provider: Adi Acosta Home Meds and New Rx's Prescriptions: New pantoprazole 40 mg tablet,delayed release (DR/EC) 40 mg PO DAILY Qty: 20 0RF No Action nitroglycerin 0.4 mg tablet, sublingual 0.4 mg Buccal Q5M PRN (Reason: chest pain) Qty: 30 3RF Rx Instructions: repeat X3 prn; call if c/p persists aspirin 81 mg tablet,chewable 81 mg PO DAILY Qty: 90 4RF bisoprolol fumarate 5 mg tablet 5 mg PO DAILY Qty: 90 4RF clopidogrel [Plavix] 75 mg tablet 75 mg PO DAILY Qty: 90 4RF cyanocobalamin (vitamin B-12) 1,000 mcg tablet 1,000 mcg PO DAILY Qty: 180 1RF fluticasone propionate [Flonase Allergy Relief] 50 mcg/actuation spray,suspension 2 spray intranasal DAILY Qty: 16 11RF Rx Instructions: administer into each nostril pregabalin 50 mg capsule 50 mg PO BID Qty: 180 3RF rosuvastatin [Crestor] 40 mg tablet 40 mg PO DAILY Qty: 90 3RF tamsulosin 0.4 mg capsule 0.4 mg PO DAILY Qty: 90 4RF nicotine 21-14-7 mg/24 hr patch, TD daily, sequential See Rx Instructions transdermal .COMPLEX Qty: 56 0RF Rx Instructions: apply 1-21 mg NICOTINE PATCH daily for 28 days; follow with 1-14 mg PATCH daily for 14 days, then 1-7mg PATCH daily for 14 days transdermal Discharge Instructions Instructions: Gastrointestinal Bleeding (ED) Additional Instructions: Please follow-up with [facility] GI team. Please return to the emergency department for any worsening symptoms Medical Decision Making 62-year-old male on aspirin and Plavix presents with black tarry stool over the last week associated with some fatigue. Abdomen soft nontender nondistended. Guaiac positive melanotic stool on examination. History of colonoscopy within last year showing polyps. Consider likely upper GI bleed consider gastritis versus duodenitis versus peptic ulcer disease versus bleeding polyp versus less likely malignancy versus less likely infection. Screening labs imaging pantoprazole fluids Zofran close reassess 21: 59 patient resting comfortably hemodynamically stable. Patient will be started on pantoprazole, will be given GI referral, given home care instructions and strict return precautions HPI General Date/Time Provider Initiated Documentation: 05/15/23 20:12. HPI Narrative: 62-year-old male history of coronary disease on aspirin and Plavix, presents with tarry stool over the last week endorses feeling fatigued over the last several days. Related Data Home Medications Medication Instructions Recorded Confirmed nitroglycerin 0.4 mg sublingual 0.4 mg buccal Q5M PRN chest pain 09/03/22 03/01/23 tablet #30 tab-caps aspirin 81 mg chewable tablet 81 mg PO DAILY #90 tab-caps 11/24/22 03/01/23 bisoprolol fumarate 5 mg tablet 5 mg PO DAILY #90 tab-caps 11/24/22 03/01/23 clopidogrel 75 mg tablet (Plavix) 75 mg PO DAILY #90 tab-caps 11/24/22 03/01/23 cyanocobalamin (vitamin B-12) 1,000 mcg PO DAILY #180 tabs 11/24/22 03/01/23 1,000 mcg tablet fluticasone propionate 50 2 spray intranasal DAILY #16 grams 11/24/22 03/01/23 mcg/actuation nasal spray,suspension (Flonase Allergy Relief) pregabalin 50 mg capsule 50 mg PO BID #180 caps 11/24/22 03/01/23 rosuvastatin 40 mg tablet (Crestor) 40 mg PO DAILY #90 tab-caps 11/24/22 03/01/23 tamsulosin 0.4 mg capsule 0.4 mg PO DAILY #90 caps 11/24/22 03/01/23 nicotine See Rx Instructions transdermal 12/05/22 03/01/23 21mg/24hr-14mg/24hr-7mg/24hr daily .COMPLEX #56 patches transderm patches,sequentl pantoprazole 40 mg tablet,delayed 40 mg PO DAILY #20 tabs 05/15/23 release Previous Rx's Medication Instructions Recorded nitroglycerin 0.4 mg sublingual 0.4 mg buccal Q5M PRN chest pain 09/03/22 tablet #30 tab-caps aspirin 81 mg chewable tablet 81 mg PO DAILY #90 tab-caps 11/24/22 bisoprolol fumarate 5 mg tablet 5 mg PO DAILY #90 tab-caps 11/24/22 clopidogrel 75 mg tablet (Plavix) 75 mg PO DAILY #90 tab-caps 11/24/22 cyanocobalamin (vitamin B-12) 1,000 mcg PO DAILY #180 tabs 11/24/22 1,000 mcg tablet fluticasone propionate 50 2 spray intranasal DAILY #16 grams 11/24/22 mcg/actuation nasal spray,suspension (Flonase Allergy Relief) pregabalin 50 mg capsule 50 mg PO BID #180 caps 11/24/22 rosuvastatin 40 mg tablet (Crestor) 40 mg PO DAILY #90 tab-caps 11/24/22 tamsulosin 0.4 mg capsule 0.4 mg PO DAILY #90 caps 11/24/22 nicotine See Rx Instructions transdermal 12/05/22 21mg/24hr-14mg/24hr-7mg/24hr daily .COMPLEX #56 patches transderm patches,sequentl pantoprazole 40 mg tablet,delayed 40 mg PO DAILY #20 tabs 05/15/23 release Allergies Allergy/AdvReac Type Severity Reaction Status Date / Time cephalexin monohydrate Allergy Severe Swelling/Ed Verified 12/25/22 13:59 [From Keflex] aren Penicillins Allergy Severe Swelling/Ed Verified 12/25/22 13:59 aren bee stings Allergy Severe Swelling/Ed Uncoded 12/25/22 13:59 aren General Stated Complaint: Abd Prob WILLEM: 2 Review of Systems Narrative: Review of Systems Constitutional: negative Eyes: negative ENT: negative Cardiovascular: negative Respiratory: negative Gastrointestinal: Dark stool : negative Musculoskeletal: negative Skin: negative Neurologic: negative Psych: negative PFSH All Active Problems (Updated 05/15/23 @ 22:02 by Adi Acosta MD) Acute upper GI bleed (Acute) BPH with urinary obstruction (Acute) Tinnitus of both ears (Acute) Chronic Skin lesion (Acute) To top of scalp CAD (coronary artery disease) (Chronic) Tobacco abuse (Acute) 06/2021- 11/10 PPD Hypercholesteremia (Acute) GRAY (obstructive sleep apnea) (Chronic) does not use a device Vitamin B 12 deficiency (Acute) PUD (peptic ulcer disease) (Chronic) Peripheral neuropathy (Acute) 2020- part of his FND History of heart artery stent (Chronic) pt. unsure of how many stents he has but state he has lost count, states last stent was 2 years ago and was a steel one so you can't MRI me per pt. Previous back surgery (Chronic) L-spine infusion Hypertension (Chronic) Pre-diabetes (Acute) Bilateral foot-drop (Acute) 2020- Part of FND Chronic pain (Chronic) 04/11/20- seen in pain clinic- given gabapentin. High risk for opioid use due to etoh history Tubular adenoma of colon (Acute) Incidental lung nodule, greater than or equal to 8mm (Acute) 10/2020- 9mm solid- referred to [facility] pulmonology IMPRESSION: 1. Opacification of pulmonary arteries is suboptimal and this study is nondiagnostic for ruling out pulmonary emboli. There is, however, no evidence of obvious pulmonary infarction.. Dysphagia (Acute) Left shoulder pain (Acute) Nocturia (Acute) Functional neurological symptom disorder with weakness or paralysis (Acute) Medical History COPD (chronic obstructive pulmonary disease) History of ETOH abuse History of vertigo NSTEMI (non-ST elevated myocardial infarction) (~05/2019) Post-CO pericarditis STEMI (ST elevation myocardial infarction) 06/05/19- F/U with Surgical History History of colonoscopy (~04/2020) History of partial gastrectomy Family History Other Unobtainable family history due to orphan status Social History Smoking/Tobacco Use Status: Current every day Tobacco Type: cigarettes Smoking packs per day: 2 Smoking cigarettes per day: 40.0 Tobacco: How many years used: 48 Quit status: considering quitting Second Hand Exposure: Yes Counseling given: provider counseling Smoking risk assessment performed?: Yes Alcohol Intake: never Drug use: Rarely Substance use type: marijuana Details: Makes pot oil for food Caregiver/Support person: No Household members: none Housing: house Number of Children: 0 Do you need help understanding health information?: Never current occupation: [employer]; Disabled Pets and animals: Yes Sexually active: No Do you think of yourself as: straight/heterosexual Current gender identity: male What is your relationship status?: never How often do you talk on the phone with friends or family?: three or more times per week How often do you get together with friends or relatives?: once per week How often do you attend judaism or sikh services?: decline to answer Do you belong to any clubs or organized social groups?: no Panel score (0-1 are the most socially isolated patients): 1 What type of physical activity do you participate in: none Duration: decline to answer Frequency: decline to answer Tala/Voodoo: No preference Special tala needs: No Seatbelt use: always Helmet use: No Drive intox or ride w/intox xm1 tank driver: No Do you feel safe at home: Yes Do you feel safe in your relationship?: Yes Exam Narrative Exam Narrative: Physical Examination General: alert, awake, cooperative, resting comfortably, no acute distress HEENT: normocephalic, atraumatic; PERRL, EOM intact, conjunctiva normal; no nasal discharge; moist mucous membranes, oral and pharyngeal mucosa normal, tolerating secretions Neck: supple, trachea midline; full ROM Chest: normal to inspection Respiratory: normal respiratory effort, speaking in full sentences, clear to auscultation, no wheezing, rales or rhonchi Cardiac: regular rate, regular rhythm, S1S2 intact, no murmurs rubs or gallops GI: abdomen soft, non-tender, non-distended; no palpable mass or hepatosplenomegaly; black stool in rectal vault, guaiac positive Skin: no lesions, rashes or trauma appreciated Neuro: AAOx3, normal speech, moving all extremities Psych: Appropriate mood and affect Course Vital Signs Vital signs: Vital Signs Temperature 36.6 C 05/15/23 20:05 Pulse 81 05/15/23 20:05 Respiratory Rate 20 05/15/23 20:05 Blood Pressure 104/73 05/15/23 20:05 Pulse Oximetry 98 05/15/23 20:05 Temperature 36.6 C 05/15/23 20:05 Temperature Source Oral 05/15/23 20:05 Pulse 81 05/15/23 20:05 Respiratory Rate 20 05/15/23 20:05 Respiratory Effort Normal, Non-Labored 05/15/23 20:10 Blood Pressure 104/73 05/15/23 20:05 Blood Pressure Position Sitting 05/15/23 20:05 Pulse Oximetry 98 05/15/23 20:05 Oxygen Delivery Method Room Air 05/15/23 20:05 Oxygen Flow Rate 0 05/15/23 20:05 Pain Level 7 05/15/23 20:05
[2023-05-15] MEDS: Normal Saline 1,000 ML 1000 ML IV (20:47)
[2023-05-15] MEDS: Pantoprazole 40 MG VIAL 80 MG IVP (20:48)
[2023-05-15] MEDS: Ondansetron 4 MG/2 ML VIAL IVP (20:48)
[2023-05-15 20:56] LABS: ALT 48 U/L (16-63); AST 34 U/L (15-37); Albumin 3.6 g/dL (3.4-5.0); Alkaline Phosphatase 115 U/L (46-116); Anion Gap 7.1 mmol/L (3-11); BUN 15 mg/dL (7-18); Bilirubin, Total 0.2 mg/dL (0.2-1.0); CO2 28.9 mmol/L (21.0-32.0); CREATININE 0.9 mg/dL (0.70-1.30); Calcium 8.3 mg/dL (8.5-10.1); Chloride 109 mmol/L (98-107); Estimated GFR 95.97 (mL/min/1.73m2); Glucose 110 mg/dL (74-106); INR 0.9 (0.9-1.1); Potassium 4.3 mmol/L (3.5-5.1); Prothrombin Time 9.5 sec (9.3-11.0); Sodium 145 mmol/L (136-145); Total Protein 6.7 g/dL (6.4-8.2)
[2023-05-15] MEDS: Omnipaque 350 MG/ML 100 ML BTL IJ (21:04)
[2023-05-15] MEDS: Normal Saline - Diluent 50 ML VIAL IJ (21:05)
--- NOTE | 2023-05-15 21:26 | DI.VRAD_ITS ---
PROCEDURE INFORMATION: Exam: CTA Abdomen and Pelvis With Contrast Exam date and time: 05/15/2023 9:03 PM Age: 62 years old Clinical indication: Other: Likely upper gi bleed TECHNIQUE: Imaging protocol: Computed tomographic angiography of the abdomen and pelvis with contrast. Exam focused on the arteries. 3D rendering (Not supervised by radiologist): MIP and/or 3D reconstructed images were created by the technologist. Contrast material: 350; Contrast volume: 100 ml; Contrast route: INTRAVENOUS (IV); COMPARISON: CT CHEST PE ABD PELVIS W 12/19/2022 9:04 PM FINDINGS: Tubes, catheters and devices: Evidence of prior vascular embolization about the GE junction. Lungs: Mild subpleural infiltrate in the right lower lobe which appears similar to previous. Mild dependent atelectasis in the left lower lobe. Aorta: Moderate diffuse mural thrombus and mild atherosclerotic calcification in the distal aorta. No evidence of aortic aneurysm or dissection. Celiac trunk and mesenteric arteries: No occlusion or significant stenosis. Renal arteries: No occlusion or significant stenosis. Right iliac arteries: No occlusion or significant stenosis. Left iliac arteries: No occlusion or significant stenosis. Liver: No mass. Gallbladder and bile ducts: Unremarkable. No calcified stones. No ductal dilation. Pancreas: Unremarkable. No mass. No ductal dilation. Spleen: Unremarkable. No splenomegaly. Adrenal glands: Unremarkable. No mass. Kidneys and ureters: Unremarkable. No solid mass. No hydronephrosis. Stomach and bowel: Mild sigmoid diverticulosis. No evidence of acute diverticulitis. No bowel wall thickening or evidence of bowel obstruction. Evidence of prior partial gastrectomy. Appendix: No evidence of appendicitis. Intraperitoneal space: Unremarkable. No free air. No significant fluid collection. Lymph nodes: Unremarkable. No enlarged lymph nodes. Urinary bladder: Unremarkable. No mass. Reproductive: Unremarkable as visualized. Bones/joints: Orthopedic hardware produces posterior fusion at the lumbosacral junction. Moderate diffuse degenerative disc changes noted. No acute fracture. Soft tissues: Unremarkable. IMPRESSION: No evidence of active GI bleed or other acute abnormality in the abdomen pelvis. Chronic appearing findings as noted. Dictated and Authenticated by: David Vickers MD. Ordering:RAINA Joshi MD
--- NOTE | 2023-05-15 22:02 | NUR.NOTE ---
p placed on care magement list for upper GI bleed [facility] Note:
--- NOTE | 2023-05-19 09:15 | PDOC.CMACT ---
Date of service: 05/19/23 Time of Service: 09:15 Care Management Activity Note Activity Note Text Activity Note Text: Raad is seen in the ED for an upper GI bleed. At the request of ED provider, CM coordinates a referral to [facility] to assist patient in obtaining an appointment for further evaluation and treatment. He has Medicaid for insurance.
== END 2023-05-15 22:25 | disposition home or self-care (01) ==
PROVIDERS: Emergency Provider Emergency Medicine; PCP Nurse Practitioner Family
DX: K92.2 Gastrointestinal hemorrhage, unspecified (principal); R53.1 Weakness; R42 Dizziness and giddiness
CPT/HCPCS: 80053; 86850; 86900; 86901; 96361; 96374; 96375; 99285; 74174; 85025; 85610; 85730; 99284; J2405; J3490

== ENCOUNTER 2023-07-08 13:33 | Emergency (ER) | payer MEDICAID, SELFPAY ==
[2023-07-08 13:48] VITALS: BP 121/87; PULSE 99; RESP 20; TEMP 36.8; O2SAT 99
--- NOTE | 2023-07-08 14:01 | DI.RAD_ITS ---
Exam(s) XR LUMBAR SPINE COMPLETE EXAM: XR LUMBAR SPINE COMPLETE CLINICAL HISTORY: pain s/p fall. TECHNIQUE: 2D digital imaging was performed. Five views. COMPARISON: MR MR LUMBAR SPINE WO from 08/07/[address] ABDOMEN PELVIS CTA from 05/15/2023 FINDINGS: There is no acute fracture. Posterior fusion hardware is noted spanning L4 through S1. Alignment ap pears unchanged from recent CT. Disc spaces are maintained. IMPRESSION: No acute abnormality. DATA REPOSITORY: RADIATION DOSE DELIVERED:
--- NOTE | 2023-07-08 14:01 | DI.RAD_ITS ---
Exam(s) XR THORACIC SPINE COMPLETE EXAM: XR THORACIC SPINE COMPLETE CLINICAL HISTORY: pain s/p fall. TECHNIQUE: 2D digital imaging was performed. Three views. COMPARISON: MR MR THORACIC SPINE WO from 07/12/2020 CR XR LUMBAR SPINE COMPLETE from 07/08/2023 FINDINGS: The exam is somewhat limited particularly the lateral view. BONES: There is no fracture or destructive lesion. The vertebral bodies and posterior elements are un remarkable. ALIGNMENT: Within normal limits. DISKS: Interverebral disc spaces are maintained. SOFT TISSUE: Visualized lungs are clear. Coronary artery stents are noted. Heart size is normal. Surgical clips near the GE junction. IMPRESSION: Unremarkable radiographs of the thoracic spine. DATA REPOSITORY: RADIATION DOSE DELIVERED:
--- NOTE | 2023-07-08 14:03 | ED.GENADUL_ITS ---
Discharge Plan Disposition Patient Disposition: Home Condition: Stable Discharge Details Clinical Impression: Contusion of back Primary Care Provider: Florence Morton ED Provider: Ortiz Pierce Home Meds and New Rx's Prescriptions: New oxycodone 5 mg tablet 5 mg PO Q8H PRN (Reason: pain) Qty: 8 0RF Continued nitroglycerin 0.4 mg tablet, sublingual 0.4 mg Buccal Q5M PRN (Reason: chest pain) Qty: 30 3RF Rx Instructions: repeat X3 prn; call if c/p persists aspirin 81 mg tablet,chewable 81 mg PO DAILY Qty: 90 4RF bisoprolol fumarate 5 mg tablet 5 mg PO DAILY Qty: 90 4RF clopidogrel [Plavix] 75 mg tablet 75 mg PO DAILY Qty: 90 4RF cyanocobalamin (vitamin B-12) 1,000 mcg tablet 1,000 mcg PO DAILY Qty: 180 1RF fluticasone propionate [Flonase Allergy Relief] 50 mcg/actuation spray,suspension 2 spray intranasal DAILY Qty: 16 11RF Rx Instructions: administer into each nostril pregabalin 50 mg capsule 50 mg PO BID Qty: 180 3RF rosuvastatin [Crestor] 40 mg tablet 40 mg PO DAILY Qty: 90 3RF tamsulosin 0.4 mg capsule 0.4 mg PO DAILY Qty: 90 4RF nicotine 21-14-7 mg/24 hr patch, TD daily, sequential See Rx Instructions transdermal .COMPLEX Qty: 56 0RF Rx Instructions: apply 1-21 mg NICOTINE PATCH daily for 28 days; follow with 1-14 mg PATCH daily for 14 days, then 1-7mg PATCH daily for 14 days transdermal aspirin 81 mg Capsule 81 mg PO DAILY Discharge Instructions Instructions: Contusion in Adults (ED) Additional Instructions: Follow up with your primary care provider within 1 week if you feel more ill, have severe worsening of pain return to the emergency department Medical Decision Making 62 yo male with hx of CAD, gray, hld, chronic back pain and neuropathy of the legs, who comes in with back pain s/p a fall a week ago. He says that his legs will sometimes give out when using his walker due to his neuropathy and this happened last week and he landed on his buttocks. Denies hitting his head or loc. No headache, neck pain, chest pain, abdomen pain. Denies increased weakness in the legs. He has lower and upper back pain since the fall so came here. HE is caox4 with clear speech on arrival, localizes the pain to the l1-2 and t10-t12 vertebrae, no other pain elsewhere, no abdominal or chest tenderness and no c spine tenderness. Suspect contusion vs back strain, will obtain xrays to evaluate for possible compression fracture. He has no findings on exam or history to suggest cauda equina or spinal epidural abscess, intact saddle anesthesia xrays negative on my read, pt stable. He does have significant chronic pain and is requesting pain medication at home, advised can only prescribe short course. He was instructed to f/u with his pcp and return precautions given. He has no records in the prescription monitoring system of note of prior recent opiate prescriptions Differential Diagnosis Differential Diagnosis: strain, contusion, fracture Medical Records Medical records reviewed: Yes I reviewed the patient's medical records. Imaging Data Radiologic Study: Attestation: I personally reviewed and interpreted this imaging study as follows: Imaging: X-Ray My impression: no acute findings T and L spine xrays on my read HPI General Mode of arrival: ambulatory (with walker) . Date/Time Provider Initiated Documentation: 07/08/23 13:41 . Limitations to Documentation: no limitations . Information obtained by: patient . History of Present Illness 62 year old M presents to the emergency department with the chief complaint of back pain s/p fall, described as moderate, Patient started experiencing this week(s) (1) and it has been constant. No relieving factors improve symptom(s), No exacerbating factors reported . Patient notes no other symptoms.. Patient did receive the following treatments prior to arrival, NSAID Related Data Home Medications Medication Instructions Recorded Confirmed nitroglycerin 0.4 mg sublingual 0.4 mg buccal Q5M PRN chest pain 09/03/22 07/08/23 tablet #30 tab-caps aspirin 81 mg chewable tablet 81 mg PO DAILY #90 tab-caps 11/24/22 07/08/23 bisoprolol fumarate 5 mg tablet 5 mg PO DAILY #90 tab-caps 11/24/22 07/08/23 clopidogrel 75 mg tablet (Plavix) 75 mg PO DAILY #90 tab-caps 11/24/22 07/08/23 cyanocobalamin (vitamin B-12) 1,000 mcg PO DAILY #180 tabs 11/24/22 07/08/23 1,000 mcg tablet fluticasone propionate 50 2 spray intranasal DAILY #16 grams 11/24/22 07/08/23 mcg/actuation nasal spray,suspension (Flonase Allergy Relief) pregabalin 50 mg capsule 50 mg PO BID #180 caps 11/24/22 07/08/23 rosuvastatin 40 mg tablet (Crestor) 40 mg PO DAILY #90 tab-caps 11/24/22 07/08/23 tamsulosin 0.4 mg capsule 0.4 mg PO DAILY #90 caps 11/24/22 07/08/23 nicotine See Rx Instructions transdermal 12/05/22 07/08/23 21mg/24hr-14mg/24hr-7mg/24hr daily .COMPLEX #56 patches transderm patches,sequentl aspirin 81 mg capsule 81 mg PO DAILY 07/08/23 07/08/23 oxycodone 5 mg tablet 5 mg PO Q8H PRN pain #8 tabs 07/08/23 Previous Rx's Medication Instructions Recorded nitroglycerin 0.4 mg sublingual 0.4 mg buccal Q5M PRN chest pain 09/03/22 tablet #30 tab-caps aspirin 81 mg chewable tablet 81 mg PO DAILY #90 tab-caps 11/24/22 bisoprolol fumarate 5 mg tablet 5 mg PO DAILY #90 tab-caps 11/24/22 clopidogrel 75 mg tablet (Plavix) 75 mg PO DAILY #90 tab-caps 11/24/22 cyanocobalamin (vitamin B-12) 1,000 mcg PO DAILY #180 tabs 11/24/22 1,000 mcg tablet fluticasone propionate 50 2 spray intranasal DAILY #16 grams 11/24/22 mcg/actuation nasal spray,suspension (Flonase Allergy Relief) pregabalin 50 mg capsule 50 mg PO BID #180 caps 11/24/22 rosuvastatin 40 mg tablet (Crestor) 40 mg PO DAILY #90 tab-caps 11/24/22 tamsulosin 0.4 mg capsule 0.4 mg PO DAILY #90 caps 11/24/22 nicotine See Rx Instructions transdermal 12/05/22 21mg/24hr-14mg/24hr-7mg/24hr daily .COMPLEX #56 patches transderm patches,sequentl oxycodone 5 mg tablet 5 mg PO Q8H PRN pain #8 tabs 07/08/23 Allergies Allergy/AdvReac Type Severity Reaction Status Date / Time cephalexin monohydrate Allergy Severe Swelling/Ed Verified 07/08/23 13:52 [From Keflex] aren Penicillins Allergy Severe Swelling/Ed Verified 07/08/23 13:52 aren bee stings Allergy Severe Swelling/Ed Uncoded 07/08/23 13:52 aren General Stated Complaint: Nk/Back Pain WILLEM: 4 Review of Systems All systems reviewed & are unremarkable except as noted in HPI and below Constitutional Constitutional: Denies chills, Denies fever(s) and Denies weakness Cardiovascular Cardiovascular: Denies chest pain and Denies dyspnea Respiratory Respiratory: Denies cough and Denies dyspnea Gastrointestinal Gastrointestinal: Denies abdominal pain, Denies nausea and Denies vomiting Genitourinary Genitourinary: Denies dysuria Musculoskeletal Musculoskeletal: Denies joint swelling Integumentary/Breasts Skin/Breast: Denies rash Neurologic Neurologic: Denies weakness PFSH All Active Problems (Updated 07/08/23 @ 14:26 by Ortiz Pierce MD) Contusion of back (Acute) BPH with urinary obstruction (Acute) Tinnitus of both ears (Acute) Chronic Skin lesion (Acute) To top of scalp CAD (coronary artery disease) (Chronic) Tobacco abuse (Acute) 06/2021- 11/10 PPD Hypercholesteremia (Acute) GRAY (obstructive sleep apnea) (Chronic) does not use a device Vitamin B 12 deficiency (Acute) PUD (peptic ulcer disease) (Chronic) Peripheral neuropathy (Acute) 2020- part of his FND History of heart artery stent (Chronic) pt. unsure of how many stents he has but state he has lost count, states last stent was 2 years ago and was a steel one so you can't MRI me per pt. Previous back surgery (Chronic) L-spine infusion Hypertension (Chronic) Pre-diabetes (Acute) Bilateral foot-drop (Acute) 2020- Part of FND Chronic pain (Chronic) 04/11/20- seen in pain clinic- given gabapentin. High risk for opioid use due to etoh history Tubular adenoma of colon (Acute) Incidental lung nodule, greater than or equal to 8mm (Acute) 10/2020- 9mm solid- referred to [facility] [place] IMPRESSION: 1. Opacification of pulmonary arteries is suboptimal and this study is nondiagnostic for ruling out pulmonary emboli. There is, however, no evidence of obvious pulmonary infarction.. Dysphagia (Acute) Left shoulder pain (Acute) Nocturia (Acute) Functional neurological symptom disorder with weakness or paralysis (Acute) Medical History COPD (chronic obstructive pulmonary disease) History of ETOH abuse History of vertigo NSTEMI (non-ST elevated myocardial infarction) (~05/2019) Post-[place] pericarditis STEMI (ST elevation myocardial infarction) 06/05/19- F/U with Surgical History History of colonoscopy (~04/2020) History of partial gastrectomy Family History Other Unobtainable family history due to orphan status Social History Smoking/Tobacco Use Status: Current every day Tobacco Type: cigarettes Smoking packs per day: 2 Smoking cigarettes per day: 40.0 Tobacco: How many years used: 48 Quit status: considering quitting Second Hand Exposure: Yes Counseling given: provider counseling Smoking risk assessment performed?: Yes Alcohol Intake: never Drug use: Rarely Substance use type: marijuana Details: Makes pot oil for food Caregiver/Support person: No Household members: none Housing: house Number of Children: 0 Do you need help understanding health information?: Never current occupation: [employer]; Disabled Pets and animals: Yes Sexually active: No Do you think of yourself as: straight/heterosexual Current gender identity: male What is your relationship status?: never How often do you talk on the phone with friends or family?: three or more times per week How often do you get together with friends or relatives?: once per week How often do you attend muslim or protestant services?: decline to answer Do you belong to any clubs or organized social groups?: no Panel score (0-1 are the most socially isolated patients): 1 What type of physical activity do you participate in: none Duration: decline to answer Frequency: decline to answer Tala/Amish: No preference Special tala needs: No Seatbelt use: always Helmet use: No Drive intox or ride w/intox armor reconnaissance vehicle driver: No Do you feel safe at home: Yes Do you feel safe in your relationship?: Yes Exam Const General: no acute distress Orientation: alert HENMT Head: normal to inspection Ears: external ears normal General nose exam: external nose normal Mouth: moist mucous membranes Eyes General: appearance normal, both eyes and all related structures Neck Neck: normal visual inspection Resp Effort & Inspection: normal respiratory effort and able to speak in complete sentences Cardio Rate: regular rate Back/Spine/Pelvis Back: no CVA tenderness Thoracic/Lumbar Spine: thoracic spinal tenderness and lumbar spinal tenderness Sacrum: no ecchymosis and no tenderness Coccyx: no tenderness Skin General skin exam: no rashes or lesions noted Neuro General: patient alert and patient oriented x3 Extrem General: normal to inspection Psych Mental Status: mental status grossly normal Course Vital Signs Vital signs: Vital Signs Temperature 36.8 C 07/08/23 13:48 Pulse 99 H 07/08/23 13:48 Respiratory Rate 20 07/08/23 13:48 Blood Pressure 121/87 07/08/23 13:48 Pulse Oximetry 99 07/08/23 13:48 Temperature 36.8 C 07/08/23 13:48 Temperature Source Oral 07/08/23 13:48 Pulse 99 H 07/08/23 13:48 Respiratory Rate 20 07/08/23 13:48 Blood Pressure 121/87 07/08/23 13:48 Blood Pressure Position Sitting 07/08/23 13:48 Pulse Oximetry 99 07/08/23 13:48 Oxygen Delivery Method Room Air 07/08/23 13:48 Oxygen Flow Rate 0 07/08/23 13:48 Pain Level 7 07/08/23 13:48
[2023-07-08] MEDS: HYDROmorphone 2 MG/ML SYR 1 MG IM (14:08)
== END 2023-07-08 14:59 | disposition home or self-care (01) ==
PROVIDERS: Emergency Provider Emergency Medicine; PCP Nurse Practitioner Family
DX: S30.0XXA Contusion of lower back and pelvis, initial encounter; W19.XXXA Unspecified fall, initial encounter; G89.29 Other chronic pain
CPT/HCPCS: 96372; 99284; 72072; 72110; J1170

== ENCOUNTER 2024-01-14 13:56 | Emergency (ER) | payer MEDICAID, SELFPAY ==
[2024-01-14 14:01] VITALS: BP 106/65; PULSE 77; RESP 20; TEMP 37; O2SAT 97
--- NOTE | 2024-01-14 14:30 | ED.GENADUL_ITS ---
Discharge Plan Disposition Patient Disposition: Home Condition: Improving Discharge Details Clinical Impression: Back pain Primary Care Provider: Florence Morton ED Provider: Adi Acosta Home Meds and New Rx's Prescriptions: New cyclobenzaprine 5 mg tablet 5 mg PO QHS PRNQty: 10 0RF lidocaine [Lidoderm] 5 % adhesive patch,medicated 1 patch topical DAILY Qty: 15 0RF Rx Instructions: leave on most painful area for up to 12 hrs No Action tamsulosin 0.4 mg capsule 0.4 mg PO DAILY Qty: 90 4RF nitroglycerin 0.4 mg tablet, sublingual 0.4 mg Buccal Q5M PRN (Reason: chest pain) Qty: 30 3RF Rx Instructions: repeat X3 prn; call if c/p persists bisoprolol fumarate 5 mg tablet 5 mg PO DAILY Qty: 90 4RF rosuvastatin [Crestor] 40 mg tablet 40 mg PO DAILY Qty: 90 3RF cyanocobalamin (vitamin B-12) 1,000 mcg tablet 1,000 mcg PO DAILY Qty: 180 1RF pregabalin 50 mg capsule 50 mg PO BID Qty: 180 3RF Rx Instructions: morning and afternoon pregabalin 100 mg capsule 100 mg PO QHS Qty: 90 3RF clopidogrel [Plavix] 75 mg tablet 75 mg PO DAILY Qty: 90 4RF hydrocodone-acetaminophen 5-325 mg tablet 1 tab PO QID MDD 4 tablets PRN (Reason: pain) Qty: 112 0RF aspirin 81 mg Capsule 81 mg PO DAILY Discharge Instructions Instructions: Back Pain (ED) Additional Instructions: Please follow-up with physical therapy and pain management team HPI General Date/Time Provider Initiated Documentation: 01/14/24 14:11 . HPI Narrative: 63-year-old male history of lumbar spinal fusion, lower extremity neuropathy b ilaterally, requiring the use of bilateral lower extremity braces, ambulates with a walker, presents in mechanical fall from standing landing on his buttock 2 days ago, lower back pain worse with movement. Denies bowel or bladder dysfunction. Is able to ambulate with walker however uncomfortable. Related Data Home Medications Medication Instructions Recorded Confirmed bisoprolol fumarate 5 mg tablet 5 mg PO DAILY #90 tab-caps 11/24/22 01/14/24 rosuvastatin 40 mg tablet (Crestor) 40 mg PO DAILY #90 tab-caps 11/24/22 01/14/24 aspirin 81 mg capsule 81 mg PO DAILY 07/08/23 01/14/24 cyanocobalamin (vitamin B-12) 1,000 mcg PO DAILY #180 tabs 07/20/23 01/14/24 1,000 mcg tablet tamsulosin 0.4 mg capsule 0.4 mg PO DAILY #90 caps 08/10/23 01/14/24 pregabalin 100 mg capsule 100 mg PO QHS #90 caps 11/30/23 01/14/24 pregabalin 50 mg capsule 50 mg PO BID #180 caps 11/30/23 01/14/24 clopidogrel 75 mg tablet (Plavix) 75 mg PO DAILY #90 tab-caps 12/16/23 01/14/24 hydrocodone 5 mg-acetaminophen 325 1 tab PO QID PRN pain #112 tabs 01/04/24 01/14/24 mg tablet nitroglycerin 0.4 mg sublingual 0.4 mg buccal Q5M PRN chest pain 01/07/24 01/14/24 tablet #30 tab-caps cyclobenzaprine 5 mg tablet 5 mg PO QHS PRN #10 tabs 01/14/24 lidocaine 5 % topical patch 1 patch topical DAILY #15 ea 01/14/24 (Lidoderm) Previous Rx's Medication Instructions Recorded bisoprolol fumarate 5 mg tablet 5 mg PO DAILY #90 tab-caps 11/24/22 rosuvastatin 40 mg tablet (Crestor) 40 mg PO DAILY #90 tab-caps 11/24/22 cyanocobalamin (vitamin B-12) 1,000 mcg PO DAILY #180 tabs 07/20/23 1,000 mcg tablet tamsulosin 0.4 mg capsule 0.4 mg PO DAILY #90 caps 08/10/23 pregabalin 100 mg capsule 100 mg PO QHS #90 caps 11/30/23 pregabalin 50 mg capsule 50 mg PO BID #180 caps 11/30/23 clopidogrel 75 mg tablet (Plavix) 75 mg PO DAILY #90 tab-caps 12/16/23 hydrocodone 5 mg-acetaminophen 325 1 tab PO QID PRN pain #112 tabs 01/04/24 mg tablet nitroglycerin 0.4 mg sublingual 0.4 mg buccal Q5M PRN chest pain 01/07/24 tablet #30 tab-caps cyclobenzaprine 5 mg tablet 5 mg PO QHS PRN #10 tabs 01/14/24 lidocaine 5 % topical patch 1 patch topical DAILY #15 ea 01/14/24 (Lidoderm) Allergies Allergy/AdvReac Type Severity Reaction Status Date / Time cephalexin monohydrate Allergy Severe Swelling/Ed Verified 01/14/24 14:03 [From Keflex] aren Penicillins Allergy Severe Swelling/Ed Verified 01/14/24 14:03 aren bee stings Allergy Severe Swelling/Ed Uncoded 01/14/24 14:03 aren General Stated Complaint: Nk/Back Pain WILLEM: 3 Review of Systems Narrative: Review of Systems Constitutional: negative Eyes: negative ENT: negative Cardiovascular: negative Respiratory: negative Gastrointestinal: negative : negative Musculoskeletal: Back pain Skin: negative Neurologic: negative Psych: negative Exam Narrative Exam Narrative: Physical Examination General: alert, awake, cooperative, resting comfortably, no acute distress HEENT: normocephalic, atraumatic Neck: supple, trachea midline; full ROM Chest: normal to inspection Respiratory: normal respiratory effort, speaking in full sentences Back: No midline spinal tenderness step-off crepitus or deformity, left paraspinal muscle spasm Skin: no lesions, rashes or trauma appreciated Neuro: AAOx3, normal speech, moving all extremities; 5-5 strength upper and lower extremities bilaterally, no ataxia Extremities: No signs of trauma Psych: Appropriate mood and affect Course Vital Signs Vital signs: Vital Signs Temperature 37 C 01/14/24 14:01 Pulse 77 01/14/24 14:01 Respiratory Rate 20 01/14/24 14:01 Blood Pressure 106/65 01/14/24 14:01 Pulse Oximetry 97 01/14/24 14:01 Temperature 37 C 01/14/24 14:01 Temperature Source Temporal Artery Scan 01/14/24 14:01 Pulse 77 01/14/24 14:01 Respiratory Rate 20 01/14/24 14:01 Respiratory Effort Normal, Non-Labored 01/14/24 14:04 Blood Pressure 106/65 01/14/24 14:01 Pulse Oximetry 97 01/14/24 14:01 Oxygen Delivery Method Room Air 01/14/24 14:01 Oxygen Flow Rate 0 01/14/24 14:01 Medical Decision Making 63-year-old male history of bilateral lower extremity neuropathy, lumbar spinal fusion, use of leg braces and walker presents with lower back pain after fall 2 days ago, mechanical in nature, no midline spinal tenderness step-off crepitus or deformity, does have left paraspinal muscle spasm, alert oriented interactive no external signs of trauma, 5 5 strength upper lower extremities bilaterally, no bowel or bladder issues, hemodynamically stable afebrile nontoxic. Consider paraspinal muscle spasm versus lumbar to radiculopathy versus compression fracture versus hardware disruption; no clinical evidence of cauda equina; trial of anti-inflammatory analgesia muscle relaxant, screening x-ray of spine as CT will likely have large artifact from amount of metal hardware 16: 01 patient resting actively no acute distress to get some relief from medication. Will follow-up with physical therapy and pain management team. Quality:SDOH Health Related Social Needs: No Data to Display PFSH All Active Problems (Updated 01/14/24 @ 16:01 by Adi Acosta MD) Back pain (Acute) BPH with urinary obstruction (Acute) Tinnitus of both ears (Acute) Chronic Skin lesion (Acute) To top of scalp CAD (coronary artery disease) (Chronic) Tobacco abuse (Acute) 06/2021- 11/10 PPD Hypercholesteremia (Acute) GRAY (obstructive sleep apnea) (Chronic) does not use a device Vitamin B 12 deficiency (Acute) PUD (peptic ulcer disease) (Chronic) Peripheral neuropathy (Acute) 2020- part of his FND History of heart artery stent (Chronic) pt. unsure of how many stents he has but state he has lost count, states last stent was 2 years ago and was a steel one so you can't MRI me per pt. Previous back surgery (Chronic) L-spine infusion Hypertension (Chronic) Pre-diabetes (Acute) Bilateral foot-drop (Acute) 2020- Part of FND Chronic pain (Chronic) 04/11/20- seen in pain clinic- given gabapentin. High risk for opioid use due to etoh history Tubular adenoma of colon (Acute) Incidental lung nodule, greater than or equal to 8mm (Acute) 10/2020- 9mm solid- referred to [facility] [place] pul[place]ology IMPRESSION: 1. Opacification of pulmonary arteries is suboptimal and this study is nondiagnostic for ruling out pulmonary emboli. There is, however, no evidence of obvious pulmonary infarction.. Dysphagia (Acute) Left shoulder pain (Acute) Nocturia (Acute) Functional neurological symptom disorder with weakness or paralysis (Acute) Medical History History of ETOH abuse COPD (chronic obstructive pulmonary disease) History of vertigo Post-[place] pericarditis STEMI (ST elevation myocardial infarction) 06/05/19- F/U with NSTEMI (non-ST elevated myocardial infarction) (~05/2019) Surgical History History of colonoscopy (~04/2020) History of partial gastrectomy Family History Other Unobtainable family history due to orphan status Social History Smoking/Tobacco Use Status: Current every day Tobacco Type: cigarettes Smoking packs per day: 2 Smoking cigarettes per day: 40.0 Tobacco: How many years used: 48 Quit status: considering quitting Second Hand Exposure: Yes Counseling given: provider counseling Smoking risk assessment performed?: Yes Alcohol Intake: never Drug use: Rarely Substance use type: marijuana Details: Makes pot oil for food Caregiver/Support person: No Household members: none Housing: house Number of Children: 0 Do you need help understanding health information?: Never current occupation: [employer]; Disabled Pets and animals: Yes Sexually active: No Do you think of yourself as: straight/heterosexual Current gender identity: male What is your relationship status?: never How often do you talk on the phone with friends or family?: three or more times per week How often do you get together with friends or relatives?: once per week How often do you attend worship or judaism services?: decline to answer Do you belong to any clubs or organized social groups?: no Panel score (0-1 are the most socially isolated patients): 1 What type of physical activity do you participate in: none Duration: decline to answer Frequency: decline to answer Tala/Congregation: No preference Special tala needs: No Seatbelt use: always Helmet use: No Drive intox or ride w/intox bus driver supervisor: No Do you feel safe at home: Yes Do you feel safe in your relationship?: Yes
[2024-01-14] MEDS: Dexamethasone 10 MG/ML VIAL PO (14:47)
[2024-01-14] MEDS: Cyclobenzaprine 10 MG TAB PO (14:47)
[2024-01-14] MEDS: Ketorolac 15 MG/ML VIAL IM (14:48)
[2024-01-14] MEDS: Lidocaine 5% Patch 1 PATCH TP (14:48)
[2024-01-14] MEDS: LORazepam 0.5 MG TAB PO (14:48)
--- NOTE | 2024-01-14 15:10 | DI.RAD_ITS ---
Exam(s) XR LUMBAR SPINE AP, LAT EXAM: XR LUMBAR SPINE AP, LAT CLINICAL HISTORY: recent fall, back pain; hx of spinal hardware. TECHNIQUE: 2D digital imaging was performed. COMPARISON: CT CT ABDOMEN PELVIS CTA from 05/15/2023 CR XR LUMBAR SPINE COMPLETE from 07/08/2023 FINDINGS: 3 views Again noted is posterior fusion hardware at L5 4-S1 levels supported by intra pedicular screws bilate rally at L4 and S1 levels. Pars defects are again noted at L5 level and there is mild anterolisthesi s L5 upon S1 again noted. Minimal disc space narrowing. No hardware migration nor loosening. No fr actures. No osseous lesions. No evidence of osteomyelitis. Sacroiliac joints appear unremarkable. IMPRESSION: Stable appearance of lumbar spine and fusion hardware. No significant radiographic change compared t o 07/08/2023. DATA REPOSITORY: RADIATION DOSE DELIVERED:
== END 2024-01-14 16:13 | disposition home or self-care (01) ==
PROVIDERS: Emergency Provider Emergency Medicine; PCP Nurse Practitioner Family
DX: M54.50 Low back pain, unspecified (principal); J44.9 Chronic obstructive pulmonary disease, unspecified; I25.10 Atherosclerotic heart disease of native coronary artery without angina pectoris; I25.2 Old myocardial infarction; I10 Essential (primary) hypertension; F17.210 Nicotine dependence, cigarettes, uncomplicated; Z79.01 Long term (current) use of anticoagulants; Z95.5 Presence of coronary angioplasty implant and graft; Z98.1 Arthrodesis status
CPT/HCPCS: 96372; 99283; 72100; J1100; J1885

== ENCOUNTER 2024-03-10 14:51 | Outpatient (REF) | payer MEDICAID, SELFPAY ==
[2024-03-10 13:36] LABS: *AMPHETAMINES SCREEN URINE Negative (Negative); *BARBITURATES SCREEN URINE Negative (Negative); *BENZODIAZEPINES SCREEN URINE Negative (Negative); Cannabinoids THC Negative (Negative); Cocaine Screen,Urine Negative (Negative); METHADONE URINE SCREEN Negative (Negative); OPIATES URINE SCREEN Positive (Negative)
[2024-03-10 13:39] LABS: Tricyclic Antidepressants Negative (Negative)
== END 2024-03-10 14:52 | disposition home or self-care (01) ==
LOC: NCHCN 14:51
PROVIDERS: PCP Nurse Practitioner Family; Visit Provider Nurse Practitioner Family
DX: G89.29 Other chronic pain (principal)
CPT/HCPCS: 80307

== ENCOUNTER 2024-08-04 03:52 | Emergency (ER) | payer MEDICAID, SELFPAY ==
[2024-08-04] VITALS (79 sets, daily range): BP systolic 88–139; BP diastolic 43–123; PULSE 91–117; RESP 11–45; TEMP 36.3–36.8; O2SAT 90–100
--- NOTE | 2024-08-04 03:50 | W.ED.GENAD ---
Discharge Plan Disposition Patient Disposition: Home Condition: Good Discharge Details Clinical Impression: Constipation, Light-headed, Hyperlactatemia Primary Care Provider: Florence Morton ED Provider: Loretta Auguste Home Meds and New Rx's Prescriptions: Continued cyclobenzaprine 5 mg tablet 5 mg PO QHS PRN (Reason: muscle spasm) Qty: 10 1RF rosuvastatin [Crestor] 40 mg tablet 40 mg PO DAILY Qty: 90 3RF Patient Comments: says he does not have it for the last 2 weeks 08/04/24 ipratropium-albuterol 0.5 mg-3 mg(2.5 mg base)/3 mL solution for nebulization 3 ml inhalation QID PRN (Reason: wheezing) Qty: 90 1RF tamsulosin 0.4 mg capsule 0.4 mg PO DAILY Qty: 90 4RF nitroglycerin 0.4 mg tablet, sublingual 0.4 mg Buccal Q5M PRN (Reason: chest pain) Qty: 30 3RF Rx Instructions: repeat X3 prn; call if c/p persists naloxone [Narcan] 4 mg/actuation spray,non-aerosol 1 spray intranasal Q2-3M PRN (Reason: opioid overdose) Qty: 2 4RF Rx Instructions: spray 1 dose into ONE nostril; alternate nostrils w each dose until help arrives cyanocobalamin (vitamin B-12) 1,000 mcg tablet 1,000 mcg PO DAILY Qty: 180 1RF bisoprolol fumarate 5 mg tablet 5 mg PO DAILY Qty: 90 4RF clopidogrel [Plavix] 75 mg tablet 75 mg PO DAILY Qty: 90 4RF hydrocodone-acetaminophen 5-325 mg tablet 1 tab PO QID MDD 4 tabs PRN (Reason: pain) Qty: 112 0RF pregabalin 50 mg capsule 50 mg PO BID Qty: 180 3RF Rx Instructions: morning and afternoon pregabalin 100 mg capsule 100 mg PO QHS Qty: 90 3RF aspirin 81 mg Capsule 81 mg PO DAILY Discharge Instructions Instructions: Constipation, Adult ED, Dizziness, Adult ED Additional Instructions: Stay hydrated and drink plenty of fluids. Call your primary care doctor today to schedule an appointment for within the next 48 hours (ideally for today) to follow up on your visit here. Return to the emergency department for new or worsening symptoms including new/different/worse abdominal pain, fever, if your lightheadedness returns, chest pain, shortness of breath, or if you have any other concerns. Referrals: Florence Morton NP [Primary Care Provider] - [facility] General Mode of arrival: EMS. Date/Time Provider Initiated Documentation: 08/04/24 03:54. Limitations to Documentation: no limitations. Information obtained by: patient, EMS and old records reviewed (clinic visit note 08/01/24, neurology clinic visit note 07/13/24). HPI Narrative: 63yo M with hx CAD with prior DE & stenting, T2DM, HTN, HLD, GRAY, frequent falls, diagnosis of functional neurologic disorder by [facility] neurology, baseline requires the use of bilateral lower extremity braces and ambulates with a walker, presenting via EMS for generalized weakness and abdominal pain. Abdominal pain started 2-3 days ago, diffuse, worsening. Last BM before this evening was about 10 days ago. He has been taking miralax. Butler the urge to defecate and stood up to get to the bathroom; upon standing he felt lightheaded, nausated, weak all over, and lowered himself to the ground to crawl to the bathroom. Was able to get onto the toilet, however then slid off and lowered himself to the ground again. Did not strike his head or lose consciousness. At this point called EMS. Prior to their arrival he was able to get back onto the toilet and had a large bowel movement, nonbloody, brown. No vomiting at any point. Earlier this morning around 0100 he noted some left sided chest pain which is not atypical for him; took one nitro which did not initially help, followed with a 2nd nitro after which his chest pain resolved. He did have some shortness of breath at that time as well. No chest pain or shortness of breath currently. He is otherwise in his usual state of health with no fevers, chills, rash, dysuria, hematuria, focal weakness, new numbness/tingling, vertigo, vision changes, or other concerns. Related Data Home Medications ?Medication ?Instructions ?Recorded ?Confirmed aspirin 81 mg capsule 81 mg PO DAILY 07/08/23 08/04/24 cyanocobalamin (vitamin B-12) 1,000 mcg PO DAILY #180 tabs 07/20/23 08/04/24 1,000 mcg tablet tamsulosin 0.4 mg capsule 0.4 mg PO DAILY #90 caps 08/10/23 08/04/24 nitroglycerin 0.4 mg sublingual 0.4 mg buccal Q5M PRN chest pain 01/07/24 08/04/24 tablet #30 tab-caps naloxone 4 mg/actuation nasal 1 spray intranasal Q2-3M PRN 01/28/24 08/04/24 spray (Narcan) opioid overdose #2 ea bisoprolol fumarate 5 mg tablet 5 mg PO DAILY #90 tab-caps 07/14/24 08/04/24 clopidogrel 75 mg tablet (Plavix) 75 mg PO DAILY #90 tab-caps 07/14/24 08/04/24 hydrocodone 5 mg-acetaminophen 325 1 tab PO QID PRN pain #112 tabs 07/14/24 08/04/24 mg tablet pregabalin 100 mg capsule 100 mg PO QHS #90 caps 07/14/24 08/04/24 pregabalin 50 mg capsule 50 mg PO BID #180 caps 07/14/24 08/04/24 cyclobenzaprine 5 mg tablet 5 mg PO QHS PRN muscle spasm #10 08/01/24 08/04/24 tabs ipratropium 0.5 mg-albuterol 3 mg 3 ml inhalation QID PRN wheezing 08/01/24 08/04/24 (2.5 mg base)/3 mL nebulization #90 mL soln rosuvastatin 40 mg tablet (Crestor) 40 mg PO DAILY #90 tab-caps 08/01/24 08/04/24 Previous Rx's ?Medication ?Instructions ?Recorded cyanocobalamin (vitamin B-12) 1,000 mcg PO DAILY #180 tabs 07/20/23 1,000 mcg tablet tamsulosin 0.4 mg capsule 0.4 mg PO DAILY #90 caps 08/10/23 nitroglycerin 0.4 mg sublingual 0.4 mg buccal Q5M PRN chest pain 01/07/24 tablet #30 tab-caps naloxone 4 mg/actuation nasal 1 spray intranasal Q2-3M PRN 01/28/24 spray (Narcan) opioid overdose #2 ea bisoprolol fumarate 5 mg tablet 5 mg PO DAILY #90 tab-caps 07/14/24 clopidogrel 75 mg tablet (Plavix) 75 mg PO DAILY #90 tab-caps 07/14/24 hydrocodone 5 mg-acetaminophen 325 1 tab PO QID PRN pain #112 tabs 07/14/24 mg tablet pregabalin 100 mg capsule 100 mg PO QHS #90 caps 07/14/24 pregabalin 50 mg capsule 50 mg PO BID #180 caps 07/14/24 cyclobenzaprine 5 mg tablet 5 mg PO QHS PRN muscle spasm #10 08/01/24 tabs ipratropium 0.5 mg-albuterol 3 mg 3 ml inhalation QID PRN wheezing 08/01/24 (2.5 mg base)/3 mL nebulization #90 mL soln rosuvastatin 40 mg tablet (Crestor) 40 mg PO DAILY #90 tab-caps 08/01/24 Allergies Allergy/AdvReac Type Severity Reaction Status Date / Time cephalexin monohydrate (From Allergy Severe Swelling/Ed Verified 08/01/24 13:24 Keflex) aren Penicillins Allergy Severe Swelling/Ed Verified 08/01/24 13:24 raen bee stings Allergy Severe Swelling/Ed Uncoded 08/01/24 13:24 aren General WILLEM: 3 Review of Systems Narrative: see HPI Exam Narrative Exam Narrative: GENERAL: Alert, no acute distress. SKIN: Warm and well perfused. HEAD: Atraumatic, normocephalic without edema, discoloration or evidence of trauma. EYES: PERRL. No scleral icterus or conjunctival injection. Extraocular muscles intact without nystagmus or diplopia. EARS: No hemotympanum. MOUTH: Moist mucus membranes without blood. Posterior pharynx without erythema or exudate. NECK: Trachea midline. No discolorations or edema. CV: Regular rate and rhythm, Normal s1 and s2. No murmurs, rubs, or gallops. PV: Radial pulses 2+ bilaterally and symmetric. Dorsalis pedis pulses 2+ bilaterally and symmetric. 2+ capillary refill. No extremity edema. CHEST: No abrasions or ecchymosis. Chest symmetric with respirations. No chest wall tenderness. Lungs are clear to auscultation bilaterally. ABDOMEN: No ecchymosis or abrasions. Soft, non-distended, mildly TTP in LLQ with no rebound or guarding. : ?No suprapubic tenderness. No CVA tenderness BACK: Spine without bony tenderness, no step offs. PELVIC: Pelvis stable, nontender to lateral compression MSK: No gross deformities or discolorations or lesions. Tolerates full range of motion of extremities without tenderness. NEURO: ? GCS 15.? Fluent speech, no dysarthria. Motor- 4+/5 strength symmetric bilateral upper and lower enormities Sensation- ?Intact to light touch and symmetric multiple dermatomes including upper and lower extremities Medical Decision Making 63yo M with hx CAD with prior DE & stenting, T2DM, HTN, HLD, GRAY, frequent falls, diagnosis of functional neurologic disorder by [facility] neurology, baseline requires the use of bilateral lower extremity braces and ambulates with a walker, presenting via EMS for generalized weakness and abdominal pain. Abdominal pain started 2-3 days ago, diffuse, worsening, in the setting of ~10 days since last BM. Took laxatives, + BM prior to arrival however was very lightheaded when he stood up to go the bathroom and was unable to walk, had to lower himself to the ground multiple times. Did not strike his head, lose conciseness, does not think he injured himself. Slightly tachycardiac on arrival with HR in 100's after transferring to ED stretcher, BP borderline soft however MAP acceptable ~70. Physical exam reassuring with no traumatic signs, mild LLQ abdominal tenderness with no peritoneal signs. EKG on arrival with no acute ischemic changes. Of note, he did have chest pain earlier in the morning while ambulating which resolved after two nitro, he states he takes nitro often but cannot clarify the frequency (does not appear to be unstable angina based on his reported history). No chest pain on arrival. Shortly after arrival had another large soft brown BM. Presentation may be 2/t resolving constipation/vagal stimulation wtih bowel movements; will give 1L IVFB and evaluate for life threatening causes with labs, CT, CXR. Patient refused orthostatic vital signs, states I feel fine, I need you to let me eat. Labs reviewed as below: -CBC with marked leukocytosis to 22 with no neutrophilia and without left shift, mild anemia with Hg 10.4. With tachycardia is SIRS+ however afebrile with no clear infectious signs/symptoms and not overtly septic; would not start empiric antibiotics at this time, consider if CXR or UA positive or sterocoral colitis on CT. -VBG with hyperlactemia at 3.9, bicarb and pH at low end of normal range. -CMP with normal electrolytes, slightly elevated gap likely due to lacate, normal Cr, normal LFTs. Lipase normal. -Initial troponin negative; given chest pain/nitro earlier will trend though low suspicion for ACS. -Urine dark, UA not infected. CXR independently reviewed; no focal pneumonia or pneumothorax on my view, radiology read below with no acute findings. CT abd pelvis independently reviewed; no obstruction or free fluid on my view, radiology read below with no acute intraabdominal findings (pt with recently right sided lung biopsy & cancer diagnosis, I do not believe the infiltrate on CT is pneumonia) Repeat lactate improved to 2.6. 1 hour troponin reassuring. Will give additional 1L IVFB and repeat lactate. On reassessment he well appearing, abdomen is nontender, and he has independently gotten up to the commode several times and had several more bowel movements. He would like to eat and drink and to go home. I suspect his lightheadedness and lactate elevation are secondary to mild volume depletion and worsened by home nitro and vagal stimulation from bowel movements. I remain somewhat concerned by his leukocytosis however this is nonspecific and I can find no clear source of infection and do not believe he is septic. HEART score 4 for hx/age/risk factors (moderate risk) and troponins are thus far reassuring. As he would prefer to go home, discharge with close PCP followup is not unreasonable. Will be signed out to oncoming physician, plan to followup repeat lactate and troponin as well as vital signs. If all reassuring, would discharge home to close PCP followup. Contingent discharge instructions written. Medical Records Medical records reviewed: Yes I reviewed the patient's medical records. Imaging Data Radiologic Study: Imaging: X-Ray and CT Scan Radiologist's impression: XR: IMPRESSION: No acute findings. CT: IMPRESSION: 1. Possible right lower lobe infiltrate. 2. No acute intra-abdominal findings. Lab Data Lab results reviewed: Yes I reviewed the patient's lab results. Labs: 08/04/24 06:06 Urine - Voided Urine Culture - Pending Laboratory Tests Range/Units 08/04/24 08/04/24 08/04/24 04:08 05:38 06:03 WBC (4.4-10.8) 10^3/uL 22.74 H RBC (4.36-5.78) 10^6/uL 4.20 L Hgb (13.5-17.5) g/dL 10.4 L Hct (40.0-50.0) % 34.1 L MCV (80-95) fL 81 MCH (27.0-33.0) pg 24.8 L MCHC (32.0-36.0) % 30.5 L RDW (11.8-14.1) % 17.6 H Plt Count (130-400) 10^3/uL 289 MPV (8.0-11.0) fL 10.6 Immature Gran % % 0.0 Neutrophils % % 83.0 Lymphocytes % % 10.0 Monocytes % % 7.0 Eosinophils % % 0.0 Basophils % % 0.0 Nucleated RBC % (0.0-0.3) % 0.0 Absolute Neutrophils (1.2-6.7) 10^3/uL 18.87 H Absolute Lymphocytes (1.2-3.4) 10^3/uL 2.27 Absolute Monocytes (0.1-0.8) 10^3/uL 1.59 H Absolute Eosinophils (0.0-0.7) 10^3/uL 0.00 Absolute Basophils (0.0-0.2) 10^3/uL 0.00 RBC Morphology See Below Poikilocytosis 1+ PT (9.1-11.1) sec 11.0 INR (0.9-1.1) 1.1 APTT (23.6-32.8) sec 22.1 L VBG pH (7.31-7.41) 7.31 VBG pCO2 (41-51) mmHg 45 VBG pO2 mmHg 24 VBG HCO3 (23-28) mmol/L 23 VBG Total CO2 (24-29) mmol/L 22 L VBG O2 Saturation % 34 VBG Base Excess (-2-3) mmol/L -4 L VBG Lactate (0.6-1.4) mmol/L 3.9 H* 2.6 H* Sodium (136-145) mmol/L 141 Potassium (3.5-5.1) mmol/L 3.5 Chloride (98-107) mmol/L 104 Carbon Dioxide (21.0-32.0) mmol/L 23.2 Anion Gap (3-11) mmol/L 13.8 H BUN (7-18) mg/dL 36 H Creatinine (0.70-1.30) mg/dL 1.2 Est GFR (CKD-EPI 2020) (mL/min/1.73m2) 67.53 Glucose (74-106) mg/dL 166 H Calcium (8.5-10.1) mg/dL 8.5 Total Bilirubin (0.2-1.0) mg/dL 0.36 AST (15-37) U/L 16 ALT (16-63) U/L 19 Alkaline Phosphatase (46-116) U/L 101 Troponin I (<or=76) ng/L 5 6 Total Protein (6.4-8.2) g/dL 7.1 Albumin (3.4-5.0) g/dL 3.7 Lipase (16-77) U/L 20 Urine Color (Yellow) Yellow Urine Clarity (Clear) Clear Urine pH (5-8) 5.0 Ur Specific [place] (1.005-1.025) 1.010 Urine Protein (Neg-Trace) mg/dL Negative Urine Ketones (Negative) mg/dL Trace H Urine Blood (Negative) Negative Urine Nitrite (Negative) Negative Urine Bilirubin (Negative) Small H Urine Urobilinogen (Up to 0.2) mg/dL 0.2 Ur Leukocyte Esterase (Negative) Negative Urine Glucose (Negative) mg/dL Negative Ethyl Alcohol (<10) mg/dL < 3.0 Quality:SDOH Health Related Social Needs: Health related social needs food insecurity, transpo insecurity, material hardship, personal safety PFSH All Active Problems (Updated 08/04/24 @ 06:18 by Loretta Auguste MD) Hyperlactatemia (Acute) Light-headed (Acute) Constipation (Acute) Diabetes mellitus type 2, controlled (Acute) BPH with urinary obstruction (Acute) Tinnitus of both ears (Acute) Chronic Skin lesion (Acute) To top of scalp CAD (coronary artery disease) (Chronic) Tobacco abuse (Acute) 06/2021- 11/10 PPD Hypercholesteremia (Acute) GRAY (obstructive sleep apnea) (Chronic) does not use a device Vitamin B 12 deficiency (Acute) PUD (peptic ulcer disease) (Chronic) Peripheral neuropathy (Acute) 2020- part of his FND History of heart artery stent (Chronic) pt. unsure of how many stents he has but state he has lost count, states last stent was 2 years ago and was a steel one so you can't MRI me per pt. Previous back surgery (Chronic) L-spine infusion Hypertension (Chronic) Bilateral foot-drop (Acute) 2020- Part of FND Chronic pain (Chronic) 04/11/20- seen in pain clinic- given gabapentin. High risk for opioid use due to etoh history Tubular adenoma of colon (Acute) Incidental lung nodule, greater than or equal to 8mm (Acute) 10/2020- 9mm solid- referred to [facility] pulmonology IMPRESSION: 1. Opacification of pulmonary arteries is suboptimal and this study is nondiagnostic for ruling out pulmonary emboli. There is, however, no evidence of obvious pulmonary infarction.. Dysphagia (Acute) Left shoulder pain (Acute) Nocturia (Acute) Functional neurological symptom disorder with weakness or paralysis (Acute) Medical History History of ETOH abuse COPD (chronic obstructive pulmonary disease) History of vertigo Post-DE pericarditis STEMI (ST elevation myocardial infarction) 06/05/19- F/U with NSTEMI (non-ST elevated myocardial infarction) (~05/2019) Surgical History History of colonoscopy (~04/2020) History of partial gastrectomy Family History Other Unobtainable family history due to orphan status Social History (Updated 08/01/24 @ 16:41 by Bianca Hernandez) Smoking/Tobacco Use Status: Current every day Tobacco Type: cigarettes Tobacco: How many years used: 48 Quit status: considering quitting Second Hand Exposure: Yes Counseling given: provider counseling Smoking risk assessment performed?: Yes Alcohol Intake: never Drug use: Occasionally Substance use type: marijuana Details: Makes pot oil for food, noted other drugs 2-4 times a month Caregiver/Support person: No Household members: none Housing: house Number of Children: 0 Do you need help understanding health information?: Never current occupation: [employer]; Disabled Pets and animals: Yes Sexually active: No Do you think of yourself as: straight/heterosexual Current gender identity: male What is your relationship status?: never How often do you talk on the phone with friends or family?: three or more times per week How often do you get together with friends or relatives?: once per week How often do you attend nondenominational or scientology services?: decline to answer Do you belong to any clubs or organized social groups?: no Panel score (0-1 are the most socially isolated patients): 1 What type of physical activity do you participate in: none Duration: decline to answer Frequency: decline to answer Tala/Confucianist: No preference Special tala needs: No Seatbelt use: always Helmet use: No Drive intox or ride w/intox driver retraining instructor: No Do you feel safe at home: Yes Do you feel safe in your relationship?: Yes
--- NOTE | 2024-08-04 04:00 | RT.EKG_ITS ---
APPROVED REPORT Exam: Resting ECG Reason for Exam: dizzy Patient Location: E HR:109 bpm ECG Measurements Heart Rate 109 AXIS TX 172 P 45 QRSd 97 QRS -10 QT 366 T 3 QTc 494 Conclusion Sinus tachycardia...rate> [address] segment or T wave abnormalities to suggest occlusive SC
--- NOTE | 2024-08-04 04:15 | DI.CT_ITS ---
Exam(s) CT ABDOMEN PELVIS W EXAM: CT ABDOMEN PELVIS W CLINICAL HISTORY: diffuse abdominal pain TECHNIQUE: Imaging Protocol: Axial computed tomography images with coronal and sagittal reformatted images were created and reviewed. CONTRAST MATERIAL: Intravenous: Omnipaque 350 Contrast volume:85 mL Oral: No COMPARISON: CT CT CHEST PE ABD PELVIS W from 12/19/[address] ABDOMEN PELVIS CTA from 05/15/2023 FINDINGS: ABDOMEN: Lung Bases: Surgical clips are seen at the gastroesophageal junction. Coronary artery calcifications and/or stents are present. There is an infiltrate seen in the right lower lobe. Liver: Normal density. No measurable mass. Portal, Superior Mesenteric, and Splenic Veins: Unremarkable. Gallbladder and Biliary Tract: No radiodense calculus or dilation. Pancreas: Normal density, no abnormal calcifications or inflammatory process. Spleen: Normal. Adrenals: No masses seen. Kidneys: Normal size, contour and axis. No radiodense stones or obstructive uropathy. No masses seen. Abdominal Aorta: Abdominal portion non-dilated. Atherosclerotic calcifications are present. Bowel: There are diverticula seen in the colon without evidence of acute diverticulitis. The bowel s hows no evidence of obstruction or inflammation. No findings are seen to suggest an acute appendicit is. Peritoneal Cavity: No ascites, collection or mesenteric inflammatory response. No free air. Lymph Nodes: Within normal limits. Bones: Within normal limits for the patient's age. Posterior spinal surgery is seen from L4 through S1. There is a donor site defect in the right iliac bone. Soft Tissues: Small bilateral fat containing inguinal hernias are present. PELVIS: Bladder: Symmetric distention, no gross wall thickening. Reproductive Organs: Prostate gland is mildly enlarged. Lymph Nodes: Within normal limits. Bones: Within normal limits for the patient's age. IMPRESSION: 1. No acute abdominal or pelvic process. 2. Right lower lobe pneumonia. RADIATION DOSE DELIVERED: 526.88mGy.cm Total DLP DATA REPOSITORY: All CT scans at this facility are submitted to the National Radiology Data Registry (NRDR) Dose Index Registry (DIR) with the [employer] (ACR). RADIATION OPTIMIZATION: All CT scans at this facility use at least one of these dose optimization te chniques: automated exposure control; mA and/or kV adjustment per patient size (includes targeted exa ms where dose is matched to clinical indication); or iterative reconstruction.
--- NOTE | 2024-08-04 04:15 | DI.RAD_ITS ---
Exam(s) XR CHEST 2V PA LATERAL EXAM: XR CHEST 2V PA LATERAL CLINICAL HISTORY: short of breath. TECHNIQUE: 2D digital imaging was performed. COMPARISON: CR,XR XR PORTABLE CHEST AP from 09/12/2021 FINDINGS: 2 views: Heart size is normal. The mediastinum is not widened. Lungs are clear. No infiltrates nor pleural effusions. Accessory azygos lobe incidentally noted IMPRESSION: No acute pulmonary findings. DATA REPOSITORY: RADIATION DOSE DELIVERED:
[2024-08-04 04:24] LABS: HCT 34.1 % (40.0-50.0); HGB 10.4 g/dL (13.5-17.5); Lactate 3.9 mmol/L (0.6-1.4); MCH 24.8 pg (27.0-33.0); MCHC 30.5 % (32.0-36.0); MCV 81 fL (80-95); MPV 10.6 fL (8.0-11.0); Platelet Count 289 10^3/uL (130-400); RDW 17.6 % (11.8-14.1); RDW-SD 51.7 fL; WBC 22.74 10^3/uL (4.4-10.8)
[2024-08-04] MEDS: Normal Saline 1,000 ML 1000 ML IV ×2 (04:28→06:02)
[2024-08-04 04:33] LABS: BE (Venous) -4 mmol/L (-2-3); HCO3 (Venous) 23 mmol/L (23-28); O2 Sat (Venous) 34 %; TCO2 (Venous) 22 mmol/L (24-29); pCO2 (Venous) 45 mmHg (41-51); pH (Venous) 7.31 (7.31-7.41); pO2 (Venous) 24 mmHg
[2024-08-04 04:37] LABS: INR 1.1 (0.9-1.1); PTT Activated 22.1 sec (23.6-32.8)
[2024-08-04 04:39] LABS: Absolute Lymphocyte Count 2.27 10^3/uL (1.2-3.4); Absolute Monocyte Count 1.59 10^3/uL (0.1-0.8); Absolute Neutrophil Count 18.87 10^3/uL (1.2-6.7); Diff Comment Manual Differential
[2024-08-04 04:40] LABS: Poikilocytes 1+
[2024-08-04 04:45] LABS: ALT 19 U/L (16-63); AST 16 U/L (15-37); Albumin 3.7 g/dL (3.4-5.0); Alkaline Phosphatase 101 U/L (46-116); Anion Gap 13.8 mmol/L (3-11); BUN 36 mg/dL (7-18); Bilirubin, Total 0.36 mg/dL (0.2-1.0); CO2 23.2 mmol/L (21.0-32.0); CREATININE 1.2 mg/dL (0.70-1.30); Calcium 8.5 mg/dL (8.5-10.1); Chloride 104 mmol/L (98-107); Estimated GFR 67.53 (mL/min/1.73m2); Glucose 166 mg/dL (74-106); Lipase 20 U/L (16-77); Potassium 3.5 mmol/L (3.5-5.1); Sodium 141 mmol/L (136-145); Total Protein 7.1 g/dL (6.4-8.2); Troponin I 5 ng/L (<or=76)
[2024-08-04 05:01] LABS: ETHANOL BLOOD < 3.0 mg/dL (<10)
--- NOTE | 2024-08-04 05:15 | NUR.NOTE ---
Nursing Note: upon ED arrival the pt requested to use the BR, pt was able to get off of the cot and walk into the br, the pt had a large BM and stated he was very dizzy, pt walked to the w/c, the pt then demanded to use the BR, pt was in the room and he refused to get in the bed, the pt was able to get himself on the commode, the pt stated he felt extremely week, then the pt refused to let this nurse place the IV because the ambulance tried and did not get it in the pt then went on the bed, then decided to inform us he took x2 SL nitro at 0200 for his pain. IV/EKG established. the pt told the physical science technician that he cannot walk due to severe neuropathy and that he uses leg brace with a stroller to get around so he will not be able to stand to get on the CT table, hover mat placed, pt taken to CT and X-ray with this nurse, the pt continued to ask for food and water, pt told numerous times reasons for not being allowed to eat or drink. the pt was returned to the room, where he removed his monitor and stood up and walked to the commode, the pt refused to have any monitors on.
[2024-08-04] MEDS: Normal Saline - Diluent 50 ML VIAL IJ (05:16)
[2024-08-04] MEDS: Omnipaque 350 MG/ML 100 ML BTL IJ (05:16)
--- NOTE | 2024-08-04 05:42 | NUR.NOTE ---
Nursing Note: IV fluids infused, labs drawn, pt states he needs to eat and drink and that is why he is unabl;e to urinate
[2024-08-04 05:48] LABS: Lactate 2.6 mmol/L (0.6-1.4)
--- NOTE | 2024-08-04 05:53 | DI.VRAD_ITS ---
PROCEDURE INFORMATION: Exam: CT Abdomen And Pelvis With Contrast Exam date and time: 08/04/2024 5:00 AM Age: 63 years old Clinical indication: Abdominal pain and other: Diffuse abdominal pain TECHNIQUE: Imaging protocol: Computed tomography of the abdomen and pelvis with contrast. Contrast material: OMNI 350; Contrast volume: 85 ml; Contrast route: INTRAVENOUS (IV); COMPARISON: CT ABDOMEN PELVIS CTA 05/15/2023 21:03 FINDINGS: Lungs: 3 cm focus of airspace consolidation at the dependent right base. Liver: Normal. No mass. Gallbladder and biliary ducts: Normal. No calcified stones. No ductal dilation. Pancreas: Normal. No ductal dilation. Spleen: Normal. No splenomegaly. Adrenal glands: Normal. No mass. Kidneys and ureters: Normal. No hydronephrosis. Stomach and bowel: Postsurgical changes at the gastroesophageal junction. No evidence of bowel obstruction. No mucosal thickening. Colonic diverticulosis without diverticulitis. Appendix: Normal appendix. Intraperitoneal space: No free fluid or free air. Vasculature: Atherosclerosis of the abdominal aorta without aneurysm or dissection. Lymph nodes: Unremarkable. No enlarged lymph nodes. Urinary bladder: Unremarkable as visualized. Reproductive: Unremarkable as visualized. Bones/joints: Posterior fusion at L4-S1. Postsurgical changes of the right iliac wing. No acute fracture. Soft tissues: Bilateral inguinal hernias containing fat. IMPRESSION: 1. Possible right lower lobe infiltrate. 2. No acute intra-abdominal findings. Dictated and Authenticated by: Dm Potts MD. Ordering:SHERRILL Burgos MD
--- NOTE | 2024-08-04 05:55 | DI.VRAD_ITS ---
PROCEDURE INFORMATION: Exam: XR Chest Exam date and time: 08/04/2024 5:10 AM Age: 63 years old Clinical indication: Shortness of breath TECHNIQUE: Imaging protocol: Radiologic exam of the chest. Views: 2 views. COMPARISON: CT CHEST PE ABD PELVIS W 08/10/2023 21:04 FINDINGS: Lungs: Slight interstitial prominence. No focal infiltrate. An azygos fissure is noted. Pleural spaces: No pleural effusion or pneumothorax. Heart/Mediastinum: Unremarkable. No cardiomegaly. Bones/joints: Unremarkable. IMPRESSION: No acute findings. Dictated and Authenticated by: Dm Potts MD. Ordering:SHERRILL Burgos MD
[2024-08-04 06:08] LABS: Troponin I 6 ng/L (<or=76)
[2024-08-04 06:10] LABS: Bilirubin Small (Negative); Blood Negative (Negative); Clarity Clear (Clear); Glucose Negative (Negative); Ketones Trace mg/dL (Negative); Leukocyte Esterase Negative (Negative); Nitrite Negative (Negative); Urobilinogen 0.2 mg/dL (Up to 0.2)
[2024-08-04 07:48] LABS: Lactate 2.6 mmol/L (0.6-1.4)
[2024-08-04 07:50] LABS: Troponin I 6 ng/L (<or=76)
[2024-08-04] MEDS: Lactated Ringers 1,000 ML 1000 ML IV (08:05)
[2024-08-04 09:05] LABS: C Diff PCR Negative (Negative)
--- NOTE | 2024-08-04 09:46 | W.ED.GENAD ---
Discharge Plan Disposition Patient Disposition: Home Condition: Good Discharge Details Clinical Impression: Constipation, Light-headed, Hyperlactatemia Primary Care Provider: Florence Morton ED Provider: Adi Acosta Home Meds and New Rx's Prescriptions: Continued cyclobenzaprine 5 mg tablet 5 mg PO QHS PRN (Reason: muscle spasm) Qty: 10 1RF rosuvastatin [Crestor] 40 mg tablet 40 mg PO DAILY Qty: 90 3RF Patient Comments: says he does not have it for the last 2 weeks 08/04/24 ipratropium-albuterol 0.5 mg-3 mg(2.5 mg base)/3 mL solution for nebulization 3 ml inhalation QID PRN (Reason: wheezing) Qty: 90 1RF tamsulosin 0.4 mg capsule 0.4 mg PO DAILY Qty: 90 4RF nitroglycerin 0.4 mg tablet, sublingual 0.4 mg Buccal Q5M PRN (Reason: chest pain) Qty: 30 3RF Rx Instructions: repeat X3 prn; call if c/p persists naloxone [Narcan] 4 mg/actuation spray,non-aerosol 1 spray intranasal Q2-3M PRN (Reason: opioid overdose) Qty: 2 4RF Rx Instructions: spray 1 dose into ONE nostril; alternate nostrils w each dose until help arrives cyanocobalamin (vitamin B-12) 1,000 mcg tablet 1,000 mcg PO DAILY Qty: 180 1RF bisoprolol fumarate 5 mg tablet 5 mg PO DAILY Qty: 90 4RF clopidogrel [Plavix] 75 mg tablet 75 mg PO DAILY Qty: 90 4RF hydrocodone-acetaminophen 5-325 mg tablet 1 tab PO QID MDD 4 tabs PRN (Reason: pain) Qty: 112 0RF pregabalin 50 mg capsule 50 mg PO BID Qty: 180 3RF Rx Instructions: morning and afternoon pregabalin 100 mg capsule 100 mg PO QHS Qty: 90 3RF aspirin 81 mg Capsule 81 mg PO DAILY Discharge Instructions Instructions: Constipation, Adult ED, Dizziness, Adult ED Additional Instructions: Stay hydrated and drink plenty of fluids. Call your primary care doctor today to schedule an appointment for within the next 48 hours (ideally for today) to follow up on your visit here. Return to the emergency department for new or worsening symptoms including new/different/worse abdominal pain, fever, if your lightheadedness returns, chest pain, shortness of breath, or if you have any other concerns. Referrals: Florence Morton NP [Primary Care Provider] - [facility] General Mode of arrival: EMS. Date/Time Provider Initiated Documentation: 08/04/24 03:54. Limitations to Documentation: no limitations. Information obtained by: patient, EMS and old records reviewed (clinic visit note 08/01/24, neurology clinic visit note 07/13/24). Related Data Home Medications ?Medication ?Instructions ?Recorded ?Confirmed aspirin 81 mg capsule 81 mg PO DAILY 07/08/23 08/04/24 cyanocobalamin (vitamin B-12) 1,000 mcg PO DAILY #180 tabs 07/20/23 08/04/24 1,000 mcg tablet tamsulosin 0.4 mg capsule 0.4 mg PO DAILY #90 caps 08/10/23 08/04/24 nitroglycerin 0.4 mg sublingual 0.4 mg buccal Q5M PRN chest pain 01/07/24 08/04/24 tablet #30 tab-caps naloxone 4 mg/actuation nasal 1 spray intranasal Q2-3M PRN 01/28/24 08/04/24 spray (Narcan) opioid overdose #2 ea bisoprolol fumarate 5 mg tablet 5 mg PO DAILY #90 tab-caps 07/14/24 08/04/24 clopidogrel 75 mg tablet (Plavix) 75 mg PO DAILY #90 tab-caps 07/14/24 08/04/24 hydrocodone 5 mg-acetaminophen 325 1 tab PO QID PRN pain #112 tabs 07/14/24 08/04/24 mg tablet pregabalin 100 mg capsule 100 mg PO QHS #90 caps 07/14/24 08/04/24 pregabalin 50 mg capsule 50 mg PO BID #180 caps 07/14/24 08/04/24 cyclobenzaprine 5 mg tablet 5 mg PO QHS PRN muscle spasm #10 08/01/24 08/04/24 tabs ipratropium 0.5 mg-albuterol 3 mg 3 ml inhalation QID PRN wheezing 08/01/24 08/04/24 (2.5 mg base)/3 mL nebulization #90 mL soln rosuvastatin 40 mg tablet (Crestor) 40 mg PO DAILY #90 tab-caps 08/01/24 08/04/24 Previous Rx's ?Medication ?Instructions ?Recorded cyanocobalamin (vitamin B-12) 1,000 mcg PO DAILY #180 tabs 07/20/23 1,000 mcg tablet tamsulosin 0.4 mg capsule 0.4 mg PO DAILY #90 caps 08/10/23 nitroglycerin 0.4 mg sublingual 0.4 mg buccal Q5M PRN chest pain 01/07/24 tablet #30 tab-caps naloxone 4 mg/actuation nasal 1 spray intranasal Q2-3M PRN 01/28/24 spray (Narcan) opioid overdose #2 ea bisoprolol fumarate 5 mg tablet 5 mg PO DAILY #90 tab-caps 07/14/24 clopidogrel 75 mg tablet (Plavix) 75 mg PO DAILY #90 tab-caps 07/14/24 hydrocodone 5 mg-acetaminophen 325 1 tab PO QID PRN pain #112 tabs 07/14/24 mg tablet pregabalin 100 mg capsule 100 mg PO QHS #90 caps 07/14/24 pregabalin 50 mg capsule 50 mg PO BID #180 caps 07/14/24 cyclobenzaprine 5 mg tablet 5 mg PO QHS PRN muscle spasm #10 08/01/24 tabs ipratropium 0.5 mg-albuterol 3 mg 3 ml inhalation QID PRN wheezing 08/01/24 (2.5 mg base)/3 mL nebulization #90 mL soln rosuvastatin 40 mg tablet (Crestor) 40 mg PO DAILY #90 tab-caps 08/01/24 Allergies Allergy/AdvReac Type Severity Reaction Status Date / Time cephalexin monohydrate (From Allergy Severe Swelling/Ed Verified 08/01/24 13:24 Keflex) aren Penicillins Allergy Severe Swelling/Ed Verified 08/01/24 13:24 aren bee stings Allergy Severe Swelling/Ed Uncoded 08/01/24 13:24 aren General Stated Complaint: Nausea/Vomit/Diar WILLEM: 3 Course Vital Signs Vital signs: Vital Signs Temperature 36.3 C L 08/04/24 03:56 Pulse 113 H 08/04/24 03:56 Respiratory Rate 18 08/04/24 03:56 Blood Pressure 91/61 L 08/04/24 03:56 Pulse Oximetry 100 08/04/24 03:56 Temperature 36.7 C 08/04/24 05:34 Temperature Source Oral 08/04/24 05:34 Pulse 94 H 08/04/24 09:31 Pulse 101 H 08/04/24 09:10 Respiratory Rate 18 08/04/24 09:31 Respiratory Effort Normal, Non-Labored 08/04/24 09:31 Respiratory Depth Normal 08/04/24 09:31 Blood Pressure 123/71 08/04/24 09:31 Blood Pressure Mean 88 08/04/24 09:31 Blood Pressure Position Right Lateral 08/04/24 09:31 Pulse Oximetry 95 08/04/24 09:31 Oxygen Delivery Method Room Air 08/04/24 09:15 Oxygen Flow Rate 0 08/04/24 09:15 Pain Level 5 08/04/24 04:08 Lab/Test Results Lab/Test Results: 08/04/24 06:06 Urine - Voided Urine Culture - Pending Laboratory Tests Range/Units 08/04/24 08/04/24 08/04/24 04:08 05:38 06:03 WBC (4.4-10.8) 10^3/uL 22.74 H RBC (4.36-5.78) 10^6/uL 4.20 L Hgb (13.5-17.5) g/dL 10.4 L Hct (40.0-50.0) % 34.1 L MCV (80-95) fL 81 MCH (27.0-33.0) pg 24.8 L MCHC (32.0-36.0) % 30.5 L RDW (11.8-14.1) % 17.6 H Plt Count (130-400) 10^3/uL 289 MPV (8.0-11.0) fL 10.6 Immature Gran % % 0.0 Neutrophils % % 83.0 Lymphocytes % % 10.0 Monocytes % % 7.0 Eosinophils % % 0.0 Basophils % % 0.0 Nucleated RBC % (0.0-0.3) % 0.0 Absolute Neutrophils (1.2-6.7) 10^3/uL 18.87 H Absolute Lymphocytes (1.2-3.4) 10^3/uL 2.27 Absolute Monocytes (0.1-0.8) 10^3/uL 1.59 H Absolute Eosinophils (0.0-0.7) 10^3/uL 0.00 Absolute Basophils (0.0-0.2) 10^3/uL 0.00 RBC Morphology See Below Poikilocytosis 1+ PT (9.1-11.1) sec 11.0 INR (0.9-1.1) 1.1 APTT (23.6-32.8) sec 22.1 L VBG pH (7.31-7.41) 7.31 VBG pCO2 (41-51) mmHg 45 VBG pO2 mmHg 24 VBG HCO3 (23-28) mmol/L 23 VBG Total CO2 (24-29) mmol/L 22 L VBG O2 Saturation % 34 VBG Base Excess (-2-3) mmol/L -4 L VBG Lactate (0.6-1.4) mmol/L 3.9 H* 2.6 H* Sodium (136-145) mmol/L 141 Potassium (3.5-5.1) mmol/L 3.5 Chloride (98-107) mmol/L 104 Carbon Dioxide (21.0-32.0) mmol/L 23.2 Anion Gap (3-11) mmol/L 13.8 H BUN (7-18) mg/dL 36 H Creatinine (0.70-1.30) mg/dL 1.2 Est GFR (CKD-EPI 2020) (mL/min/1.73m2) 67.53 Glucose (74-106) mg/dL 166 H Calcium (8.5-10.1) mg/dL 8.5 Total Bilirubin (0.2-1.0) mg/dL 0.36 AST (15-37) U/L 16 ALT (16-63) U/L 19 Alkaline Phosphatase (46-116) U/L 101 Troponin I (<or=76) ng/L 5 6 Total Protein (6.4-8.2) g/dL 7.1 Albumin (3.4-5.0) g/dL 3.7 Lipase (16-77) U/L 20 Urine Color (Yellow) Yellow Urine Clarity (Clear) Clear Urine pH (5-8) 5.0 Ur Specific [place] (1.005-1.025) 1.010 Urine Protein (Neg-Trace) mg/dL Negative Urine Ketones (Negative) mg/dL Trace H Urine Blood (Negative) Negative Urine Nitrite (Negative) Negative Urine Bilirubin (Negative) Small H Urine Urobilinogen (Up to 0.2) mg/dL 0.2 Ur Leukocyte Esterase (Negative) Negative Urine Glucose (Negative) mg/dL Negative Stl C.difficile Tox PCR (Negative) Ethyl Alcohol (<10) mg/dL < 3.0 Range/Units 08/04/24 08/04/24 07:27 08:12 WBC (4.4-10.8) 10^3/uL RBC (4.36-5.78) 10^6/uL Hgb (13.5-17.5) g/dL Hct (40.0-50.0) % MCV (80-95) fL MCH (27.0-33.0) pg MCHC (32.0-36.0) % RDW (11.8-14.1) % Plt Count (130-400) 10^3/uL MPV (8.0-11.0) fL Immature Gran % % Neutrophils % % Lymphocytes % % Monocytes % % Eosinophils % % Basophils % % Nucleated RBC % (0.0-0.3) % Absolute Neutrophils (1.2-6.7) 10^3/uL Absolute Lymphocytes (1.2-3.4) 10^3/uL Absolute Monocytes (0.1-0.8) 10^3/uL Absolute Eosinophils (0.0-0.7) 10^3/uL Absolute Basophils (0.0-0.2) 10^3/uL RBC Morphology Poikilocytosis PT (9.1-11.1) sec INR (0.9-1.1) APTT (23.6-32.8) sec VBG pH (7.31-7.41) VBG pCO2 (41-51) mmHg VBG pO2 mmHg VBG HCO3 (23-28) mmol/L VBG Total CO2 (24-29) mmol/L VBG O2 Saturation % VBG Base Excess (-2-3) mmol/L VBG Lactate (0.6-1.4) mmol/L 2.6 H* Sodium (136-145) mmol/L Potassium (3.5-5.1) mmol/L Chloride (98-107) mmol/L Carbon Dioxide (21.0-32.0) mmol/L Anion Gap (3-11) mmol/L BUN (7-18) mg/dL Creatinine (0.70-1.30) mg/dL Est GFR (CKD-EPI 2020) (mL/min/1.73m2) Glucose (74-106) mg/dL Calcium (8.5-10.1) mg/dL Total Bilirubin (0.2-1.0) mg/dL AST (15-37) U/L ALT (16-63) U/L Alkaline Phosphatase (46-116) U/L Troponin I (<or=76) ng/L 6 Total Protein (6.4-8.2) g/dL Albumin (3.4-5.0) g/dL Lipase (16-77) U/L Urine Color (Yellow) Urine Clarity (Clear) Urine pH (5-8) Ur Specific [place] (1.005-1.025) Urine Protein (Neg-Trace) mg/dL Urine Ketones (Negative) mg/dL Urine Blood (Negative) Urine Nitrite (Negative) Urine Bilirubin (Negative) Urine Urobilinogen (Up to 0.2) mg/dL Ur Leukocyte Esterase (Negative) Urine Glucose (Negative) mg/dL Stl C.difficile Tox PCR (Negative) Negative Ethyl Alcohol (<10) mg/dL Medical Decision Making Patient feeling much better after fluids. Resting comfortably. Hemodynamically stable. Downtrending lactate. 3 troponin negative. Patient wishes to go home. 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 unsure of how many stents he has but state he has lost count, states last stent was 2 years ago and was a steel one so you can't MRI me per pt. Previous back surgery (Chronic) L-spine infusion Hypertension (Chronic) Bilateral foot-drop (Acute) 2020- Part of FND Chronic pain (Chronic) 04/11/20- seen in pain clinic- given gabapentin. High risk for opioid use due to etoh history Tubular adenoma of colon (Acute) Incidental lung nodule, greater than or equal to 8mm (Acute) 10/2020- 9mm solid- [place] [facility] [place] IMPRESSION: 1. Opacification of pulmonary arteries is suboptimal and this study is nondiagnostic for ruling out pulmonary emboli. There is, however, no evidence of obvious pulmonary infarction.. Dysphagia (Acute) Left shoulder pain (Acute) Nocturia (Acute) Functional neurological symptom disorder with weakness or paralysis (Acute) Medical History History of ETOH abuse COPD (chronic obstructive pulmonary disease) History of vertigo Post-OH pericarditis STEMI (ST elevation myocardial infarction) 06/05/19- F/U with NSTEMI (non-ST elevated myocardial infarction) (~05/2019) Surgical History History of colonoscopy (~04/2020) History of partial gastrectomy Family History Other Unobtainable family history due to orphan status Social History (Updated 08/01/24 @ 16:41 by Bianca Hernandez) Smoking/Tobacco Use Status: Current every day Tobacco Type: cigarettes Tobacco: How many years used: 48 Quit status: considering quitting Second Hand Exposure: Yes Counseling given: provider counseling Smoking risk assessment performed?: Yes Alcohol Intake: never Drug use: Occasionally Substance use type: marijuana Details: Makes pot oil for food, noted other drugs 2-4 times a month Caregiver/Support person: No Household members: none Housing: house Number of Children: 0 Do you need help understanding health information?: Never current occupation: [employer]; Disabled Pets and animals: Yes Sexually active: No Do you think of yourself as: straight/heterosexual Current gender identity: male What is your relationship status?: never How often do you talk on the phone with friends or family?: three or more times per week How often do you get together with friends or relatives?: once per week How often do you attend alevism or yazdanism services?: decline to answer Do you belong to any clubs or organized social groups?: no Panel score (0-1 are the most socially isolated patients): 1 What type of physical activity do you participate in: none Duration: decline to answer Frequency: decline to answer Tala/Baptist: No preference Special tala needs: No Seatbelt use: always Helmet use: No Drive intox or ride w/intox service car driver: No Do you feel safe at home: Yes Do you feel safe in your relationship?: Yes Sign Out Sign Out Data: Sign Out Comment: Presented for lightheadedness and abdominal pain in the setting of constipation x 10 days now, with multiple large BMs. Also had chest pain earlier in the night for which he took nitro. EKG/trops reassuring. Labs with leukocytosis to 22 and initial lactate 3.9, downtrending. Afebrile but tachycardiac low 100's. CXR, CT, UA negative. Getting additional IVF now. Pt wants to go home. Pending repeat lactate/trop; if reassuring with reassuring vital signs would dc to PCP followup today/tomorrow. Contingent discharge instructions written. Last updated by Loretta Auguste MD at 08/04/24 06:31
== END 2024-08-04 10:31 | disposition home or self-care (01) ==
PROVIDERS: Student in an Organized Health Care Education/Training Program; Emergency Provider Emergency Medicine; PCP Nurse Practitioner Family
DX: K59.00 Constipation, unspecified (principal); E87.29 Other acidosis; R42 Dizziness and giddiness; J44.9 Chronic obstructive pulmonary disease, unspecified; I25.2 Old myocardial infarction; I25.10 Atherosclerotic heart disease of native coronary artery without angina pectoris; E11.9 Type 2 diabetes mellitus without complications; I10 Essential (primary) hypertension; F17.210 Nicotine dependence, cigarettes, uncomplicated; Z95.5 Presence of coronary angioplasty implant and graft; Z79.02 Long term (current) use of antithrombotics/antiplatelets; Z79.82 Long term (current) use of aspirin
CPT/HCPCS: 36415; 80053; 82805; 83690; 87493; 93005; 96360; 96361; 99285; 71046; 74177; 80320; 81003; 83605; 84484; 85025; 85610; 85730; 87086; 93010; 99284; J3490

== ENCOUNTER → 2024-10-12 08:38 | Outpatient (BNVA) | payer MEDICARE, MEDICAID, SELFPAY | PROVIDERS: PCP Nurse Practitioner Family; Referring Provider Nurse Practitioner Family; Visit Provider Psychiatry & Neurology Neurology | DX: M21.371 Foot drop, right foot (principal); M21.372 Foot drop, left foot; G62.9 Polyneuropathy, unspecified; R29.6 Repeated falls; R53.1 Weakness | CPT/HCPCS: 99214 ==

== ENCOUNTER 2024-12-06 14:36 | Emergency (ER) | payer MEDICARE, MEDICAID, SELFPAY ==
[2024-12-06] VITALS (90 sets, daily range): BP systolic 77–100; BP diastolic 40–58; PULSE 72–99; RESP 0–39; TEMP 36.1–37.1; O2SAT 95–100
[2024-12-06 15:17] LABS: Abs Immature Grans 0.03 10^3/uL (0.0-0.06); Absolute Basophil Count 0.03 10^3/uL (0.0-0.2); Absolute Eosinophil Count 0.05 10^3/uL (0.0-0.7); Absolute Lymphocyte Count 1.55 10^3/uL (1.2-3.4); Absolute Monocyte Count 0.62 10^3/uL (0.1-0.8); Absolute Neutrophil Count 5.13 10^3/uL (1.2-6.7); Basophils % 0.4 %; Eosinophils % 0.7 %; Immature Grans % 0.4 %; Lymphocytes % 20.9 %; MCH 19.2 pg (27.0-33.0); MCHC 28.3 % (32.0-36.0); MCV 68 fL (80-95); MPV 10.6 fL (8.0-11.0); Monocytes % 8.4 %; Neutrophils % 69.2 %; Platelet Count 263 10^3/uL (130-400); RBC 2.91 10^6/uL (4.36-5.78); RDW 23.8 % (11.8-14.1); RDW-SD 54.6 fL; WBC 7.41 10^3/uL (4.4-10.8)
--- NOTE | 2024-12-06 15:22 | W.ED.GENAD ---
Discharge Plan Disposition Patient Disposition: Admit to [facility] Condition: Stable Discharge Details Chief Complaint: AMS/LOC Clinical Impression: Acute upper gastrointestinal bleeding, CAD (coronary artery disease), Hypertension, Diabetes mellitus type 2, controlled, Hypercholesteremia, GRAY (obstructive sleep apnea), Anemia requiring transfusions Primary Care Provider: Florence Morton ED Provider: Blessing Gilliland Home Meds and New Rx's Prescriptions: No Action cyclobenzaprine 5 mg tablet 5 mg PO QHS PRN (Reason: muscle spasm) Qty: 10 1RF ipratropium-albuterol 0.5 mg-3 mg(2.5 mg base)/3 mL solution for nebulization 3 ml inhalation QID PRN (Reason: wheezing) Qty: 90 1RF pregabalin 100 mg capsule 100 mg PO QHS Qty: 90 3RF tamsulosin 0.4 mg capsule 0.4 mg PO DAILY Qty: 90 4RF nitroglycerin 0.4 mg tablet, sublingual 0.4 mg Buccal Q5M PRN (Reason: chest pain) Qty: 30 3RF Rx Instructions: repeat X3 prn; call if c/p persists hydrocodone-acetaminophen 5-325 mg tablet 1 tab PO QID MDD 4 tabs PRN (Reason: pain) Qty: 112 0RF rosuvastatin [Crestor] 40 mg tablet 40 mg PO DAILY Qty: 90 3RF Patient Comments: says he does not have it for the last 2 weeks 08/04/24 bisoprolol fumarate 5 mg tablet 5 mg PO DAILY Qty: 90 4RF clopidogrel [Plavix] 75 mg tablet 75 mg PO DAILY Qty: 90 4RF pregabalin 50 mg capsule 50 mg PO BID Qty: 180 3RF Rx Instructions: morning and afternoon cyanocobalamin (vitamin B-12) 1,000 mcg tablet 1,000 mcg PO DAILY Qty: 180 1RF tacrolimus 0.1 % ointment 1 applic topical BID Qty: 100 0RF Rx Instructions: Apply topically to affected areas on buttocks 2x/daily PRN IF still bothersome after 2 weeks of using triamcinlone. aspirin 81 mg Capsule 81 mg PO DAILY HPI General Mode of arrival: EMS. Date/Time Provider Initiated Documentation: 12/06/24 14:44. Limitations to Documentation: altered mental status. Information obtained by: patient, EMS and old records reviewed. HPI Narrative: HPI: This is a 62-year-old male patient with a history of type 2 diabetes, coronary artery disease, GRAY, history of stent placements, hypertension, and a functional neurological disorder who is presenting for evaluation of altered mental status and question fall. Per EMS, they were called by the patient, unclear if he fell today or yesterday, and was intermittently unresponsive with some decorticate posturing. He would then wake up and be quite aggressive and slightly combative, and this went back and forth for the entirety of the transport. On arrival, the patient reports that he did not want to be taken to this hospital, he wanted to be taken to [facility], is unable to provide me with any significant information regarding why he called the ambulance today. Med list review shows that he is on dual antiplatelet therapy. Exam: Gen: Intermittently awake and agitated, with brief periods of poor responsiveness HEENT: Non-icteric sclera, pupils 2 mm, minimally reactive but symmetrical Neck: Supple, full range of motion, no apparent tenderness Lungs: No apparent respiratory distress, normal respiratory effort. Lung sounds clear and equal CV: Appears well perfused, strong and symmetrical distal pulses Abdomen: Non-distended, soft MSK: Moves 4 extremities without apparent limitation in ROM Skin: Visualized skin without rashes, cyanosis. Neuro: No apparent facial asymmetry, moving all 4 extremities without motor deficit Psych: Appropriate for situation. MDM: This is a 64-year-old male patient presenting for evaluation of altered mental status and fall. Differential includes but is not limited to intracranial hemorrhage, skull fracture, certainly considered toxic and metabolic encephalopathy, kidney injury, liver failure, intoxication and withdrawal syndromes. The patient is reassuringly hemodynamically stable though his mental status is quite concerning. For this reason the patient will be taken immediately for CT scan of his brain and C-spine. We will obtain laboratory studies to include CBC, CMP, magnesium, troponin, and urinalysis. ED Course: CT scan of the patient's brain and C-spine showed no evidence of intracranial hemorrhage. The patient does have a spinous process fracture of C5 of unknown age, which is likely chronic given the patient's lack of pain in this region. His CBC resulted concerning for new anemia with a hemoglobin of 5.6, no leukocytosis, no thrombocytopenia noted. On reevaluation the patient is able to tell me that he is not experiencing any active external bleeding, and he is able to allow me to do a rectal examination which revealed melanotic stool that was guaiac positive, concerning for upper GI bleed. I provided the patient with a dose of Protonix and we will type and cross 2 units of blood. Chemistry panel with mild hypokalemia to 3.4, a BUN of 19 and a creatinine of 1, and no evidence of liver dysfunction. INR 1.1, initial troponin negative, with no delta change on the 1 hour. Plan to transfuse 2 units PRBCs, reach out to the general surgeon who was made aware of the patient and plans to take him for endoscopy tomorrow. I discussed this case with the hospitalist who is graciously accepted this patient for admission, though the patient will need to board down here in the emergency department due to lack of bed availability. Remained hemodynamically appropriate and without deterioration in his mental status while under my care. Blessing Gilliland MD Related Data Home Medications ?Medication ?Instructions ?Recorded ?Confirmed aspirin 81 mg capsule 81 mg PO DAILY 07/08/23 11/03/24 bisoprolol fumarate 5 mg tablet 5 mg PO DAILY #90 tab-caps 07/14/24 11/03/24 clopidogrel 75 mg tablet (Plavix) 75 mg PO DAILY #90 tab-caps 07/14/24 11/03/24 pregabalin 50 mg capsule 50 mg PO BID #180 caps 07/14/24 11/03/24 cyclobenzaprine 5 mg tablet 5 mg PO QHS PRN muscle spasm #10 08/01/24 11/03/24 tabs ipratropium 0.5 mg-albuterol 3 mg 3 ml inhalation QID PRN wheezing 08/01/24 11/03/24 (2.5 mg base)/3 mL nebulization #90 mL soln rosuvastatin 40 mg tablet (Crestor) 40 mg PO DAILY #90 tab-caps 08/09/24 11/03/24 cyanocobalamin (vitamin B-12) 1,000 mcg PO DAILY #180 tabs 09/14/24 11/03/24 1,000 mcg tablet tacrolimus 0.1 % topical ointment 1 applic topical BID #100 grams 09/22/24 11/03/24 nitroglycerin 0.4 mg sublingual 0.4 mg buccal Q5M PRN chest pain 11/03/24 11/03/24 tablet #30 tab-caps pregabalin 100 mg capsule 100 mg PO QHS #90 caps 11/03/24 11/03/24 tamsulosin 0.4 mg capsule 0.4 mg PO DAILY #90 caps 11/03/24 11/03/24 hydrocodone 5 mg-acetaminophen 325 1 tab PO QID PRN pain #112 tabs 11/24/24 11/24/24 mg tablet Previous Rx's ?Medication ?Instructions ?Recorded bisoprolol fumarate 5 mg tablet 5 mg PO DAILY #90 tab-caps 07/14/24 clopidogrel 75 mg tablet (Plavix) 75 mg PO DAILY #90 tab-caps 07/14/24 pregabalin 50 mg capsule 50 mg PO BID #180 caps 07/14/24 cyclobenzaprine 5 mg tablet 5 mg PO QHS PRN muscle spasm #10 08/01/24 tabs ipratropium 0.5 mg-albuterol 3 mg 3 ml inhalation QID PRN wheezing 08/01/24 (2.5 mg base)/3 mL nebulization #90 mL soln rosuvastatin 40 mg tablet (Crestor) 40 mg PO DAILY #90 tab-caps 08/09/24 cyanocobalamin (vitamin B-12) 1,000 mcg PO DAILY #180 tabs 09/14/24 1,000 mcg tablet tacrolimus 0.1 % topical ointment 1 applic topical BID #100 grams 09/22/24 nitroglycerin 0.4 mg sublingual 0.4 mg buccal Q5M PRN chest pain 11/03/24 tablet #30 tab-caps pregabalin 100 mg capsule 100 mg PO QHS #90 caps 11/03/24 tamsulosin 0.4 mg capsule 0.4 mg PO DAILY #90 caps 11/03/24 hydrocodone 5 mg-acetaminophen 325 1 tab PO QID PRN pain #112 tabs 11/24/24 mg tablet Allergies Allergy/AdvReac Type Severity Reaction Status Date / Time cephalexin monohydrate (From Allergy Severe Swelling/Ed Verified 11/03/24 14:03 Keflex) aren Penicillins Allergy Severe Swelling/Ed Verified 11/03/24 14:03 aren bee stings Allergy Severe Swelling/Ed Uncoded 11/03/24 14:03 aren General Stated Complaint: AMS/LOC WILLEM: 3 Course Vital Signs Vital signs: Vital Signs Temperature 36.7 C 12/06/24 14:50 Pulse 79 12/06/24 14:50 Respiratory Rate 11 L 12/06/24 14:50 Blood Pressure 100/42 L 12/06/24 14:50 Pulse Oximetry 100 12/06/24 14:50 Temperature 36.7 C 12/06/24 14:50 Temperature Source Oral 12/06/24 14:50 Pulse 79 12/06/24 14:50 Respiratory Rate 11 L 12/06/24 14:50 Blood Pressure 100/42 L 12/06/24 14:50 Blood Pressure Position Sitting 12/06/24 14:50 Pulse Oximetry 100 12/06/24 14:50 Oxygen Delivery Method Room Air 12/06/24 14:50 Oxygen Flow Rate 0 12/06/24 14:50 Medical Decision Making Quality:SDOH Health Related Social Needs: Health related social needs details NA Critical Care Time Critical Care Time Critical Care Time: Yes Total Critical Care Time: 35 Attestation: Upon my evaluation, this patient had a high probability of imminent or life-threatening deterioration due to GI bleed requiring transfusion, which required my direct attention, intervention, and personal management. I have personally provided 35 minutes of critical care time exclusive of time spent on separately billable procedures. Time includes review of laboratory data, radiology results, discussion with consultants, and monitoring for potential decompensation. Interventions were performed as documented above. Blessing Gilliland MD [facility] All Active Problems (Updated 12/06/24 @ 17:05 by Blessing Gilliland MD) Anemia requiring transfusions (Acute) Acute upper gastrointestinal bleeding (Acute) Vertigo (Acute) Diabetes mellitus type 2, controlled (Acute) BPH with urinary obstruction (Acute) Tinnitus of both ears (Acute) Chronic Skin lesion (Acute) To top of scalp CAD (coronary artery disease) (Chronic) Tobacco abuse (Acute) 06/2021- 11/10 PPD Hypercholesteremia (Acute) GRAY (obstructive sleep apnea) (Chronic) does not use a device Vitamin B 12 deficiency (Acute) PUD (peptic ulcer disease) (Chronic) Peripheral neuropathy (Acute) 2020- part of his FND History of heart artery stent (Chronic) pt. unsure of how many stents he has but state he has lost count, states last stent was 2 years ago and was a steel one so you can't MRI me per pt. Previous back surgery (Chronic) L-spine infusion Hypertension (Chronic) Bilateral foot-drop (Acute) 2020- Part of FND Chronic pain (Chronic) 04/11/20- seen in pain clinic- given gabapentin. High risk for opioid use due to etoh history Tubular adenoma of colon (Acute) Incidental lung nodule, greater than or equal to 8mm (Acute) 10/2020- 9mm solid- referred to [facility] pulmonology IMPRESSION: 1. Opacification of pulmonary arteries is suboptimal and this study is nondiagnostic for ruling out pulmonary emboli. There is, however, no evidence of obvious pulmonary infarction.. Dysphagia (Acute) Left shoulder pain (Acute) Nocturia (Acute) Functional neurological symptom disorder with weakness or paralysis (Acute) Medical History History of ETOH abuse COPD (chronic obstructive pulmonary disease) History of vertigo Post-[place] pericarditis STEMI (ST elevation myocardial infarction) 06/05/19- F/U with NSTEMI (non-ST elevated myocardial infarction) (~05/2019) Surgical History History of colonoscopy (~04/2020) History of partial gastrectomy Family History Other Unobtainable family history due to orphan status Social History Smoking/Tobacco Use Status: Current every day Tobacco Type: cigarettes Tobacco: How many years used: 48 Quit status: considering quitting Second Hand Exposure: Yes Counseling given: provider counseling Smoking risk assessment performed?: Yes Alcohol Intake: never Drug use: Occasionally Substance use type: marijuana Details: Makes pot oil for food, noted other drugs 2-4 times a month Caregiver/Support person: No Household members: none Housing: house Number of Children: 0 Do you need help understanding health information?: Never current occupation: [employer]; Disabled Pets and animals: Yes Sexually active: No Do you think of yourself as: straight/heterosexual Current gender identity: male What is your relationship status?: never How often do you talk on the phone with friends or family?: three or more times per week How often do you get together with friends or relatives?: once per week How often do you attend mu-ism or jehovah's witness services?: decline to answer Do you belong to any clubs or organized social groups?: no Panel score (0-1 are the most socially isolated patients): 1 What type of physical activity do you participate in: none Duration: decline to answer Frequency: decline to answer Tala/Religious: No preference Special tala needs: No Seatbelt use: always Helmet use: No Drive intox or ride w/intox refrigerated company driver: No Do you feel safe at home: Yes Do you feel safe in your relationship?: Yes
--- NOTE | 2024-12-06 15:25 | DI.CT_ITS ---
Exam(s) CT HEAD CERVICAL SPINE WO EXAM: CT HEAD CERVICAL SPINE WO CLINICAL HISTORY: fall, unknown head strike, AMS. TECHNIQUE: Imaging Protocol: Axial computed tomography images with coronal and sagittal reformatted images were created and reviewed COMPARISON: CR CERV SP.WITH OBL OR FLEX/EXT from 05/09/2011 CT HEAD WITHOUT CONTRAST from 01/19/2018 FINDINGS: BRAIN: There are no skull fractures nor fluid in the visualized paranasal sinuses. Right mastoid air cells are clear. There is under development of left side mastoid air cells, unchanged from 2018. There is no fluid in the bilateral middle ear cavities. There is no evidence of intracranial hemorrhage, mass effect, or shift of midline structures. There are no extra-axial fluid collections. The ventricles are not enlarged or shifted and there is no blo od within the ventricular system nor within the basal cisterns. CERVICAL SPINE: There is a fracture of the right-side of the spinous process of C5. This may not be acute. No other fractures identified in the cervical spinal column. There is chronic disc space narrowing and fusion across C5-6 level. There is partial fusion across t he right-side facet joint at this level. Other facet joints appear unremarkable. There is also evidence of chronic degenerative disc disease at C6-7 level with disc space narrowing a nd also bilateral Luschka joint osteophytes at this level. Also some degenerative disease at C4-5. There is no listhesis. There is no significant facet joint malalignment. No significant osseous lesions evident. IMPRESSION: No acute intracranial findings on this noninfused CT scan of the brain. There is a separation of the posterior aspect of the right-side of the spinous process of C5 which is probably fracture but possibly not acute. Correlation with site of tenderness is recommended. Multilevel chronic degenerative disc disease as detailed above. Report called by myself to ER physician 12/06/2024 at 3:42 p.m. RADIATION DOSE DELIVERED: 1,388.84mGy.cm Total DLP DATA REPOSITORY: All CT scans at this facility are submitted to the National Radiology Data Registry (NRDR) Dose Index Registry (DIR) with the [employer] (ACR). RADIATION OPTIMIZATION: All CT scans at this facility use at least one of these dose optimization te chniques: automated exposure control; mA and/or kV adjustment per patient size (includes targeted exa ms where dose is matched to clinical indication); or iterative reconstruction.
[2024-12-06 15:26] LABS: Anisocytosis 2+; Diff Comment RBC Morph Reviewed; Microcytosis 2+
[2024-12-06 15:27] LABS: Hypochromasia 1+
[2024-12-06 15:28] LABS: HCT 19.8 % (40.0-50.0); HGB 5.6 g/dL (13.5-17.5)
[2024-12-06 15:36] LABS: ALT 18 U/L (16-63); AST 14 U/L (15-37); Albumin 3.6 g/dL (3.4-5.0); Alkaline Phosphatase 95 U/L (46-116); Anion Gap 8.7 mmol/L (3-11); BUN 19 mg/dL (7-18); Bilirubin, Total 0.39 mg/dL (0.2-1.0); CO2 26.3 mmol/L (21.0-32.0); Chloride 108 mmol/L (98-107); Estimated GFR 83.52 (mL/min/1.73m2); Glucose 98 mg/dL (74-106); Magnesium 1.8 mg/dL (1.8-2.4); Potassium 3.4 mmol/L (3.5-5.1); Sodium 143 mmol/L (136-145); Troponin I 6 ng/L (<or=76)
[2024-12-06 15:53] LABS: INR 1.1 (0.9-1.1); Prothrombin Time 10.7 sec (9.1-11.1)
[2024-12-06 16:49] LABS: Troponin I 5 ng/L (<or=76)
--- NOTE | 2024-12-06 16:59 | SCONE_ITS ---
Date of service: 12/06/24 Time of Service: 17:01 Assessment and Plan Assessment and plan (1) Acute upper gastrointestinal bleeding: Status: Chronic Assessment and plan: 64-year-old man with acute on chronic GI bleeding. Sounds like he had an EGD done for this last week(if his history is correct) and he says he was told he is stomach cancer as the cause of the bleeding. I point out if the history is correct because the chart reports partial gastrectomy 30 or 40 years ago and if he is confused, maybe he is off in his memory/recall. While unlikely, it is possible he had stomach cancer many years ago and is getting confused about the timing of everything. Assuming the history he gives at the bedside is accurate, then there is no indication for another EGD. He is currently getting radiation treatment for lung cancer. He is DNR/DNI. I do think it is reasonable to transfuse him and continue medical care for him if that is what he wants, but I do NOT think exploratory surgery is reasonable under these circumstances and if he continues to bleed, that is not going to be an option for him and in his case it could be the end of life. Endovascular or IR embolization of something that continues to bleed could be considered since it is minimally invasive. All management medical. Goals of care discussion, palliative care consultation, recommend reaching out to his oncology team and his GI team at [facility]. Surgery signing off. History of Present Illness Narrative: Asked to consult on GI bleeding. Patient altered mental status and with a hemoglobin of 5. Dual antiplatelet therapy. Looking back in his chart he has been dealing with GI bleeding for a few of years. He has a history of falling. Melanotic stools or stools with reshma blood in them are nothing unusual and he says he has been seeing that for years. At the bedside the patient tells me that he has stomach cancer and had an EGD last week at [facility]. He also says he has lung cancer and is currently having radiation therapy for that. The medical record confirms active lung cancer undergoing radiation treatment. Reportedly has a history of stomach surgery 30 or 40 years ago for unknown reason. He is DNR/DNI. PFSH All Active Problems (Updated 12/06/24 @ 18:02 by Maico Mcmahon MD) Anemia requiring transfusions (Acute) Acute upper gastrointestinal bleeding (Chronic) Vertigo (Acute) Diabetes mellitus type 2, controlled (Acute) BPH with urinary obstruction (Acute) Tinnitus of both ears (Acute) Chronic Skin lesion (Acute) To top of scalp CAD (coronary artery disease) (Chronic) Tobacco abuse (Acute) 06/2021- 11/10 PPD Hypercholesteremia (Acute) GRAY (obstructive sleep apnea) (Chronic) does not use a device Vitamin B 12 deficiency (Acute) PUD (peptic ulcer disease) (Chronic) Peripheral neuropathy (Acute) 2020- part of his FND History of heart artery stent (Chronic) pt. unsure of how many stents he has but state he has lost count, states last stent was 2 years ago and was a steel one so you can't MRI me per pt. Previous back surgery (Chronic) L-spine infusion Hypertension (Chronic) Bilateral foot-drop (Acute) 2020- Part of FND Chronic pain (Chronic) 04/11/20- seen in pain clinic- given gabapentin. High risk for opioid use due to etoh history Tubular adenoma of colon (Acute) Incidental lung nodule, greater than or equal to 8mm (Acute) 10/2020- 9mm solid- referred to [facility] pulmonology IMPRESSION: 1. Opacification of pulmonary arteries is suboptimal and this study is nondiagnostic for ruling out pulmonary emboli. There is, however, no evidence of obvious pulmonary infarction.. Dysphagia (Acute) Left shoulder pain (Acute) Nocturia (Acute) Functional neurological symptom disorder with weakness or paralysis (Acute) Medical History History of ETOH abuse COPD (chronic obstructive pulmonary disease) History of vertigo Post-[place] pericarditis STEMI (ST elevation myocardial infarction) 06/05/19- F/U with NSTEMI (non-ST elevated myocardial infarction) (~05/2019) Surgical History History of colonoscopy (~04/2020) History of partial gastrectomy Family History Other Unobtainable family history due to orphan status Social History Smoking/Tobacco Use Status: Current every day Tobacco Type: cigarettes Tobacco: How many years used: 48 Quit status: considering quitting Second Hand Exposure: Yes Counseling given: provider counseling Smoking risk assessment performed?: Yes Alcohol Intake: never Drug use: Occasionally Substance use type: marijuana Details: Makes pot oil for food, noted other drugs 2-4 times a month Caregiver/Support person: No Household members: none Housing: house Number of Children: 0 Do you need help understanding health information?: Never current occupation: [employer]; Disabled Pets and animals: Yes Sexually active: No Do you think of yourself as: straight/heterosexual Current gender identity: male What is your relationship status?: never How often do you talk on the phone with friends or family?: three or more times per week How often do you get together with friends or relatives?: once per week How often do you attend holiness or sikh services?: decline to answer Do you belong to any clubs or organized social groups?: no Panel score (0-1 are the most socially isolated patients): 1 What type of physical activity do you participate in: none Duration: decline to answer Frequency: decline to answer Tala/Worship: No preference Special tala needs: No Seatbelt use: always Helmet use: No Drive intox or ride w/intox local bulk driver: No Do you feel safe at home: Yes Do you feel safe in your relationship?: Yes Exam Narrative Exam Narrative: General: Appears well?nourished but pale consistent with acute anemia Neuro: Alert and oriented x 2 (does not know where he is, why he is here or how he got here) - He is oriented to person and year. Psych: Seemingly good insight and understanding into his condition, his mood, well cooperative, is that of disorientation and confusion Chest: Nonlabored breathing Heart: Regular (no tachycardia) Results Last Vital Signs Temp 98.1 F 12/06/24 14:50 Pulse 79 12/06/24 14:50 Resp 11 L 12/06/24 15:27 BP 100/42 L 12/06/24 14:50 Pulse Ox 100 12/06/24 14:50 Labs 12/06/24 13:05 12/06/24 13:05 Labs: Laboratory Results - last 24 hr 12/06/24 12/06/24 13:05 16:24 WBC 7.41 RBC 2.91 L Hgb 5.6 L* Hct 19.8 L* MCV 68 L MCH 19.2 L MCHC 28.3 L RDW 23.8 H Plt Count 263 MPV 10.6 Immature Gran % 0.4 Neutrophils % 69.2 Lymphocytes % 20.9 Monocytes % 8.4 Eosinophils % 0.7 Basophils % 0.4 Nucleated RBC % 0.0 Absolute Neutrophils 5.13 Absolute Lymphocytes 1.55 Absolute Monocytes 0.62 Absolute Eosinophils 0.05 Absolute Basophils 0.03 RBC Morphology See Below Hypochromasia 1+ Anisocytosis 2+ Microcytosis 2+ PT 10.7 INR 1.1 Sodium 143 Potassium 3.4 L Chloride 108 H Carbon Dioxide 26.3 Anion Gap 8.7 BUN 19 H Creatinine 1.0 Est GFR (CKD-EPI 2020) 83.52 Glucose 98 Calcium 9.0 Magnesium 1.8 Total Bilirubin 0.39 AST 14 L ALT 18 Alkaline Phosphatase 95 Troponin I 6 5 Total Protein 7.0 Albumin 3.6 Crossmatch See Detail
[2024-12-06] MEDS: Pantoprazole 40 MG VIAL 80 MG IVP (17:47)
[2024-12-06] MEDS: Water,Injection,Sterile 10 ML VIAL (17:48)
[2024-12-06 18:04] LABS: Ammonia < 10 umol/L (11-32)
--- NOTE | 2024-12-06 18:53 | W.PM.HP.N ---
Date of service: 12/06/24 Time of Service: 18:53 Assessment and Plan Assessment and plan (1) Acute blood loss anemia: Start date: 12/06/24 Status: Acute Assessment and plan: This is a 64-year-old gentleman presenting with symptomatic anemia which appears to have been slowly loss over months by history of melena but is now acutely symptomatic and may have had a more dramatic loss recently. His BUN is not markedly elevated indicating that this may have been more chronic. He is not cardiovascular compromise other than hypotension. He will be fluid resuscitated and given 2 units of packed of blood cells with follow-up hemoglobin and continue transfusion for hemoglobin below 7 g/dL. Continue to monitor orthostasis. He is a DNR/DNI. (2) Acute upper gastrointestinal bleeding: Start date: 12/06/24 Status: Acute Assessment and plan: As above the patient on Plavix and aspirin which will be held. Protonix 40 mg IV twice daily after 80 mg initially. Surgery has been consulted. Patient did have recent upper endoscopy by history about a week ago as a workup of his new diagnosis of stomach cancer. Surgery may want to follow-up with [facility] before proceed with endoscopy locally. Patient also is wanting to participate in care about with dignity and he may want to stop further workups of his ongoing medical problems. He is a DNR/DNI. (3) CAD (coronary artery disease): Status: Chronic Assessment and plan: Troponins are negative and patient appears to be tolerating anemia without exacerbation. Plavix and aspirin will be held. That will be continued. Beta-bobby will be held because of orthostasis. Reinitiate therapy as safe and risk-benefit need to be discussed with patient. (4) Diabetes mellitus type 2, controlled: Status: Chronic Assessment and plan: Patient has a history of diabetes but is on no therapy. Glucometer monitoring while hospitalized. (5) GRAY (obstructive sleep apnea): Status: Chronic Assessment and plan: Patient does have a history of sleep apnea but is not on treatment. He has a chronic cough. He continues to smoke tobacco. (6) Tobacco abuse: Status: Chronic Assessment and plan: Continues to smoke at least 1/2 pack/day and is thinking of quitting. He is on DuoNebs as needed at home which would be continued on the hospital stay. (7) Chronic pain: Status: Chronic Assessment and plan: VPMS checked with patient having consistent prescribing of hydrocodone as an outpatient by the same provider and urine drug screen upon admission screening for misuse with risk appearing low. Continue outpatient chronic pain management with Vicodin as needed. Patient does have chronic pain status post back surgery and neurological pain on pregabalin. Pregabalin will be continued as well. (8) BPH with urinary obstruction: Status: Chronic Assessment and plan: Continue tamsulosin. History of Present Illness History of Present Illness Chief Complaint: Confusion with falls. Narrative: This is a 64-year-old male patient who called EMS after falling and not being able to get up with his neighbor come to the door and asking him to go to the ER. Patient was confused with falls at home which were reported by the patient who lives alone and unclear as to injury other than he lost his glasses and awakened on the floor. The patient does have chronic back pain with failed surgery and old spinous process fracture on imaging done in the ED indicating possible other injuries. As stated, he does not alone and is the only director writing of his history. Patient gives a history of 2 months of melanotic stool and becoming more and more orthostatic with standing over the last days. He has open physical for his cardiac issues. The patient presents with symptomatic microcytic anemia with a sudden drop in his hemoglobin from prior measurements and with a history of peptic ulcer disease and on aspirin and Plavix because of CAD status post stenting. He is on a statin. He has not taken any other NSAIDs for his chronic pain. He has had no chest pain or shortness of breath and no edema reported. Troponins were negative in the ED. He is a vague historian and stated over and over during our conversation that he was through with fighting for life and wants to look into with dignity. He did have a recent diagnosis of stomach cancer and previous diagnosis of lung cancer. He is not suicidal but does not want to be institutionalized and does not have anyone to help her with hospice or at home. He does have an appointment at [facility] 12/07/2024 with the team working up his stomach cancer. His anemia is profound with his hemoglobin below 6. In the ED he was found to be hypotensive and hypokalemic with IV fluids to be given for resuscitation. Patient is being transfused 2 units packed red blood cells with follow-up hemoglobin closely to maintain hemoglobin above 7. Patient did not have an elevated BUN though he did have melena and with microcytosis, this does appear to be chronic upper GI bleed with possible acute component. Aspirin and Plavix are being held. DVT prophylaxis is also being held. Surgical consultation is in place and patient has been seen though he did have an upper endoscopy and [facility] within the last week. This should be reviewed by the surgeon. Palliative care consultation will be ordered for the morning with patient wishes to look into with dignity. He is a DNR/DNI. Review of Systems Narrative: 13 point review of systems otherwise unrevealing or stable. [facility] All Active Problems (Updated 12/06/24 @ 19:05 by Michael Friend) Acute blood loss anemia (Acute) Anemia requiring transfusions (Acute) Acute upper gastrointestinal bleeding (Acute) Vertigo (Acute) Diabetes mellitus type 2, controlled (Chronic) BPH with urinary obstruction (Chronic) Tinnitus of both ears (Acute) Chronic Skin lesion (Acute) To top of scalp CAD (coronary artery disease) (Chronic) Tobacco abuse (Chronic) 06/2021- 11/10 PPD Hypercholesteremia (Acute) GRAY (obstructive sleep apnea) (Chronic) does not use a device Vitamin B 12 deficiency (Acute) PUD (peptic ulcer disease) (Chronic) Peripheral neuropathy (Acute) 2020- part of his FND History of heart artery stent (Chronic) pt. unsure of how many stents he has but state he has lost count, states last stent was 2 years ago and was a steel one so you can't MRI me per pt. Previous back surgery (Chronic) L-spine infusion Hypertension (Chronic) Bilateral foot-drop (Acute) 2020- Part of FND Chronic pain (Chronic) 04/11/20- seen in pain clinic- given gabapentin. High risk for opioid use due to etoh history Tubular adenoma of colon (Acute) Incidental lung nodule, greater than or equal to 8mm (Acute) 10/2020- 9mm solid- referred to [facility] pulmonology IMPRESSION: 1. Opacification of pulmonary arteries is suboptimal and this study is nondiagnostic for ruling out pulmonary emboli. There is, however, no evidence of obvious pulmonary infarction.. 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 STEMI (ST elevation myocardial infarction) 06/05/19- F/U with NSTEMI (non-ST elevated myocardial infarction) (~05/2019) Surgical History History of colonoscopy (~04/2020) History of partial gastrectomy Family History Other Unobtainable family history due to orphan status Social History Smoking/Tobacco Use Status: Current every day Tobacco Type: cigarettes Tobacco: How many years used: 48 Quit status: considering quitting Second Hand Exposure: Yes Counseling given: provider counseling Smoking risk assessment performed?: Yes Alcohol Intake: never Drug use: Occasionally Substance use type: marijuana Details: Makes pot oil for food, noted other drugs 2-4 times a month Caregiver/Support person: No Household members: none Housing: house Number of Children: 0 Do you need help understanding health information?: Never current occupation: [employer]; Disabled Pets and animals: Yes Sexually active: No Do you think of yourself as: straight/heterosexual Current gender identity: male What is your relationship status?: never How often do you talk on the phone with friends or family?: three or more times per week How often do you get together with friends or relatives?: once per week How often do you attend uatsdin or latter day services?: decline to answer Do you belong to any clubs or organized social groups?: no Panel score (0-1 are the most socially isolated patients): 1 What type of physical activity do you participate in: none Duration: decline to answer Frequency: decline to answer Tala/Restorationism: No preference Special tala needs: No Seatbelt use: always Helmet use: No Drive intox or ride w/intox ambulance driver paramedic: No Do you feel safe at home: Yes Do you feel safe in your relationship?: Yes Meds Allergies and Home Medications Allergies Allergy/AdvReac Type Severity Reaction Status Date / Time cephalexin monohydrate (From Allergy Severe Swelling/Ed Verified 12/06/24 21:46 Keflex) aren Penicillins Allergy Severe Swelling/Ed Verified 12/06/24 21:46 aren bee stings Allergy Severe Swelling/Ed Uncoded 12/06/24 21:46 aren Home Medications ?Medication ?Instructions ?Recorded ?Confirmed ?Type aspirin 81 mg capsule 81 mg PO DAILY 07/08/23 11/03/24 History bisoprolol fumarate 5 mg tablet 5 mg PO DAILY #90 tab-caps 07/14/24 11/03/24 Rx clopidogrel 75 mg tablet (Plavix) 75 mg PO DAILY #90 tab-caps 07/14/24 11/03/24 Rx pregabalin 50 mg capsule 50 mg PO BID #180 caps 07/14/24 11/03/24 Rx cyclobenzaprine 5 mg tablet 5 mg PO QHS PRN muscle spasm #10 08/01/24 11/03/24 Rx tabs ipratropium 0.5 mg-albuterol 3 mg 3 ml inhalation QID PRN wheezing 08/01/24 11/03/24 Rx (2.5 mg base)/3 mL nebulization #90 mL soln rosuvastatin 40 mg tablet (Crestor) 40 mg PO DAILY #90 tab-caps 08/09/24 11/03/24 Rx cyanocobalamin (vitamin B-12) 1,000 mcg PO DAILY #180 tabs 09/14/24 11/03/24 Rx 1,000 mcg tablet tacrolimus 0.1 % topical ointment 1 applic topical BID #100 grams 09/22/24 11/03/24 Rx nitroglycerin 0.4 mg sublingual 0.4 mg buccal Q5M PRN chest pain 11/03/24 11/03/24 Rx tablet #30 tab-caps pregabalin 100 mg capsule 100 mg PO QHS #90 caps 11/03/24 11/03/24 Rx tamsulosin 0.4 mg capsule 0.4 mg PO DAILY #90 caps 11/03/24 11/03/24 Rx hydrocodone 5 mg-acetaminophen 325 1 tab PO QID PRN pain #112 tabs 11/24/24 11/24/24 Rx mg tablet Exam Narrative Exam Narrative: General: Patient appears older than stated age, flattened affect but good eye contact. He is alert and oriented x 3. He admits to having increased confusion at home with his orthostatic symptoms and severe anemia. HEENT: Normocephalic, eyes with pupils equal and reactive left medically, extraocular movement intact and sclera anicteric. Oropharynx with moist mucosa. Neck: Supple without JVD. Back: Kyphotic without CVA tenderness. Lungs: Bronchovesicular breath sound diffusely with no focalizing rales or rhonchi. No expiratory wheeze. Fair aeration. Heart: Distant heart sounds, regular rate and rhythm with no murmurs or gallops appreciated. No rubs. Abdomen: Obese contour, soft nontender to palpation with no palpable hepatosplenomegaly. Bowel sounds positive all quadrants. No tenderness in the epigastrium with no guarding or rebound. Genitalia/rectal: Exam deferred. Extremities: Without clubbing, cyanosis or grossly pitting edema though the right leg appears larger than the left. Fair capillary refill. Skin: Pale, warm and dry. Neuro: Cranial nerves II through XII is intact, no focalizing motor deficits. No tremor. Psych: Flattened affect with depressed mood. No abnormal thought processes. Remote and recent memory grossly intact. Results Imaging Imaging Studies: Patient Name: Raad Butler Unit #: [id number] Loc: ER Ordering Provider: Blessing Gilliland M.D. Status: REG ER Primary Care Provider: Florence Morton NP Date of Exam: 12/06/24 Sex: M : 1960 Age: 64 EXAM: CT HEAD CERVICAL SPINE WO Date of exam: 12/06/2024 CLINICAL HISTORY: fall, unknown head strike, AMS. TECHNIQUE: Imaging Protocol: Axial computed tomography images with coronal and sagittal reformatted images were created and reviewed COMPARISON: CR CERV SP.WITH OBL OR FLEX/EXT from 05/09/2011 CT HEAD WITHOUT CONTRAST from 01/19/2018 FINDINGS: BRAIN: There are no skull fractures nor fluid in the visualized paranasal sinuses. Right mastoid air cells are clear. There is under development of left side mastoid air cells, unchanged from 2018. There is no fluid in the bilateral middle ear cavities. There is no evidence of intracranial hemorrhage, mass effect, or shift of midline structures. There are no extra-axial fluid collections. The ventricles are not enlarged or shifted and there is no blood within the ventricular system nor within the basal cisterns. CERVICAL SPINE: There is a fracture of the right-side of the spinous process of C5. This may not be acute. No other fractures identified in the cervical spinal column. There is chronic disc space narrowing and fusion across C5-6 level. There is partial fusion across the right-side facet joint at this level. Other facet joints appear unremarkable. There is also evidence of chronic degenerative disc disease at C6-7 level with disc space narrowing and also bilateral Luschka joint osteophytes at this level. Also some degenerative disease at C4-5. There is no listhesis. There is no significant facet joint malalignment. No significant osseous lesions evident. IMPRESSION: No acute intracranial findings on this noninfused CT scan of the brain. There is a separation of the posterior aspect of the right-side of the spinous process of C5 which is probably fracture but possibly not acute. Correlation with site of tenderness is recommended. Multilevel chronic degenerative disc disease as detailed above. Labs 12/06/24 13:05 12/06/24 13:05 Labs: Laboratory Results - last 24 hr 12/06/24 12/06/24 12/06/24 13:05 16:24 17:48 WBC 7.41 RBC 2.91 L Hgb 5.6 L* Hct 19.8 L* MCV 68 L MCH 19.2 L MCHC 28.3 L RDW 23.8 H Plt Count 263 MPV 10.6 Immature Gran % 0.4 Neutrophils % 69.2 Lymphocytes % 20.9 Monocytes % 8.4 Eosinophils % 0.7 Basophils % 0.4 Nucleated RBC % 0.0 Absolute Neutrophils 5.13 Absolute Lymphocytes 1.55 Absolute Monocytes 0.62 Absolute Eosinophils 0.05 Absolute Basophils 0.03 RBC Morphology See Below Hypochromasia 1+ Anisocytosis 2+ Microcytosis 2+ PT 10.7 INR 1.1 Sodium 143 Potassium 3.4 L Chloride 108 H Carbon Dioxide 26.3 Anion Gap 8.7 BUN 19 H Creatinine 1.0 Est GFR (CKD-EPI 2020) 83.52 Glucose 98 Calcium 9.0 Magnesium 1.8 Total Bilirubin 0.39 AST 14 L ALT 18 Alkaline Phosphatase 95 Ammonia < 10 L Troponin I 6 5 Total Protein 7.0 Albumin 3.6 ABO/Rh O Positive Antibody Screen NEGATIVE Crossmatch See Detail Last Vital Signs Temp 36.7 C 12/06/24 18:51 Pulse 82 12/06/24 18:51 Resp 14 12/06/24 18:51 BP 80/43 L 01/28/25 18:51 Pulse Ox 97 12/06/24 18:51 Time Spent Time spent with Patient: >75 minutes Time was spent: preparing to see the patient(eg.review tests), obtaining and/or reviewing separately otained hiistory, ordering medications,tests, procedures, indepentently interpreting results, counseling the patient and care coordination
--- NOTE | 2024-12-06 19:40 | DI.RAD_ITS ---
Exam(s) XR PORTABLE CHEST AP EXAM: XR PORTABLE CHEST AP CLINICAL HISTORY: AMS TECHNIQUE: 2D digital imaging was performed of the chest. One image was obtained. An AP view was ob tained. COMPARISON: CR,XR XR PORTABLE CHEST AP from 09/12/2021 FINDINGS: MEDIASTINUM: Normal. HEART: Normal. PULMONARY VASCULATURE: Normal. LUNGS: Note is made of an azygos lobe which is a normal variant. There is a hazy opacity in the righ t lung base not present on the prior examination which may represent a developing infiltrate. PLEURAL SPACE: No pleural effusion or pneumothorax. BONE:Within normal limits for the patient's age. OTHER FINDINGS:There are surgical clips seen near the gastroesophageal junction. IMPRESSION: Hazy opacity in the right lung base which may represent a developing infiltrate. Follow-up as clinic ally appropriate. DATA REPOSITORY: RADIATION DOSE DELIVERED:
--- NOTE | 2024-12-06 20:43 | DI.VRAD_ITS ---
PROCEDURE INFORMATION: Exam: XR Chest Exam date and time: 12/06/2024 7:39 PM Age: 64 years old Clinical indication: Other: AMS TECHNIQUE: Imaging protocol: Radiologic exam of the chest. Views: 1 view. COMPARISON: CR XR CHEST 2V PA LATERAL 08/04/2024 5:10 AM FINDINGS: Lungs: There is mild asymmetric increased density in the right lung base. This may represent ground-glass infiltrate or an early developing infiltrate. There is no consolidation. Incidentally noted is an azygos lobe in the right lung apex, a normal variation. Pleural spaces: No effusions or pneumothoraces. Heart/Mediastinum: The heart is normal in size. The superior mediastinum is unremarkable. Bones/joints: No acute bony change of the ribs. Other findings: Abdomen: There are surgical clips at the level of the gastroesophageal junction. IMPRESSION: 1. Subtle increased density in the right lung base which may represent a developing infiltrate or ground-glass infiltrate. No effusions or pneumothoraces Dictated and Authenticated by: Zaid Brown MD. Orderin [facility] Agustin Funk MD
[2024-12-06 21:48] LABS: Bilirubin Negative (Negative); Blood Negative (Negative); Clarity Clear (Clear); Glucose Negative (Negative); Ketones Negative (Negative); Leukocyte Esterase Negative (Negative); Nitrite Negative (Negative); Specific Gravity 1.015 (1.005-1.025)
[2024-12-06 21:59] LABS: *AMPHETAMINES SCREEN URINE Negative (Negative); *BARBITURATES SCREEN URINE Negative (Negative); *BENZODIAZEPINES SCREEN URINE Negative (Negative); Cannabinoids THC Negative (Negative); Cocaine Screen,Urine Negative (Negative); METHADONE URINE SCREEN Negative (Negative); OPIATES URINE SCREEN Positive (Negative)
[2024-12-06 22:02] LABS: Tricyclic Antidepressants Negative (Negative)
[2024-12-07] VITALS (53 sets, daily range): BP systolic 74–103; BP diastolic 33–60; PULSE 65–86; RESP 6–23; TEMP 36.1–36.8; O2SAT 78–100
[2024-12-07] MEDS: Pregabalin 100 MG CAP PO (00:49)
[2024-12-07] MEDS: HYDROcodone 5/Acetaminophen 325 TAB PO (00:49)
--- NOTE | 2024-12-07 04:50 | NUR.NOTE ---
Nursing Note: pt slept most of the night, pt woke up, po water given, pt is allowing to have labs drawn, unable to pull from the IV, pt earlier was not allowing to have anyone attempt to draw labs after 1st transfusion finished, then refused again after 2nd unit finished.-
[2024-12-07 04:53] LABS: MCH 22.2 pg (27.0-33.0); MCHC 30.3 % (32.0-36.0); MCV 73 fL (80-95); MPV 9.6 fL (8.0-11.0); Platelet Count 175 10^3/uL (130-400); RBC 2.66 10^6/uL (4.36-5.78); RDW-SD 59.9 fL; WBC 7.22 10^3/uL (4.4-10.8)
[2024-12-07 05:05] LABS: HCT 19.5 % (40.0-50.0)
[2024-12-07 05:06] LABS: ALT 10 U/L (16-63); AST 13 U/L (15-37); Albumin 2.5 g/dL (3.4-5.0); Alkaline Phosphatase 71 U/L (46-116); Anion Gap 6.6 mmol/L (3-11); BUN 17 mg/dL (7-18); Bilirubin, Total 0.56 mg/dL (0.2-1.0); CO2 25.4 mmol/L (21.0-32.0); CREATININE 0.8 mg/dL (0.70-1.30); Calcium 7.5 mg/dL (8.5-10.1); Chloride 111 mmol/L (98-107); Estimated GFR 98.21 (mL/min/1.73m2); Glucose 90 mg/dL (74-106); Magnesium 1.8 mg/dL (1.8-2.4); Potassium 3.8 mmol/L (3.5-5.1); Sodium 143 mmol/L (136-145)
[2024-12-07 05:18] LABS: RDW 23.4 % (11.8-14.1)
[2024-12-07] MEDS: POTASSIUM CHLORIDE/0.9% NACL 1,000 ML 125 MEQ IV (05:20)
[2024-12-07 05:22] LABS: HGB 5.9 g/dL (13.5-17.5)
--- NOTE | 2024-12-07 05:33 | NUR.NOTE ---
Nursing Note: MD can aware, of lab results. Pt also low BP, receiving 500ml NS bolus and then NS 20meg K+ IV at 125ml/hr. ordering for more transfusions
[2024-12-07] MEDS: Albuterol/Ipratropium 3 ML UPD VIAL IH (08:15)
[2024-12-07] MEDS: Tamsulosin 0.4 MG CAPCR PO (08:16)
[2024-12-07] MEDS: Pregabalin 50 MG CAP PO (08:16)
[2024-12-07] MEDS: Cyanocobalamin 500 MCG TAB 1000 MCG PO (08:16)
[2024-12-07] MEDS: Pantoprazole 40 MG VIAL IVP (08:29)
[2024-12-07 10:23] LABS: HCT 21.2 % (40.0-50.0); MCH 23.9 pg (27.0-33.0); MCHC 32.1 % (32.0-36.0); MCV 75 fL (80-95); MPV 10.2 fL (8.0-11.0); Platelet Count 170 10^3/uL (130-400); RDW 25.7 % (11.8-14.1); RDW-SD 68.2 fL; WBC 6.12 10^3/uL (4.4-10.8)
[2024-12-07 10:34] LABS: HGB 6.8 g/dL (13.5-17.5)
[2024-12-07 10:35] LABS: RBC 2.84 10^6/uL (4.36-5.78)
[2024-12-07] MEDS: Tranexamic Acid 1,000 MG/10 ML VIAL 1000 MG IVP (10:55)
[2024-12-07] MEDS: MORPHine 4 MG/ML SYR 1 MG IVP ×2 (11:19→12:17)
== END 2024-12-06 14:51 | disposition short-term general hospital (02) ==
LOC: ER 17:05 → EDHOLD 12-07 10:11
PROVIDERS: Family Medicine; Emergency Provider Emergency Medicine; PCP Nurse Practitioner Family
DX: K92.2 Gastrointestinal hemorrhage, unspecified (principal); I25.2 Old myocardial infarction; I10 Essential (primary) hypertension; E11.9 Type 2 diabetes mellitus without complications; E78.00 Pure hypercholesterolemia, unspecified; D64.9 Anemia, unspecified; C34.90 Malignant neoplasm of unspecified part of unspecified bronchus or lung; F17.290 Nicotine dependence, other tobacco product, uncomplicated; Z79.01 Long term (current) use of anticoagulants; Z79.82 Long term (current) use of aspirin
CPT/HCPCS: 00123; 36430; 80053; 80307; 85027; 86850; 86900; 86901; 86920; 87635; 94640; 96372; 96374; 96375; 96376; 99283; 99284; 99285; 70450; 71045; 72125; 81003; 82140; 83735; 84484; 85025; 85610; J1815; J2270; J2470; J2597; J7620; P9016; P9059